=== PATIENT | female | born 1985 | race Caucasian/White ===

== ENCOUNTER 2021-11-23 17:41 | Emergency (ER) | payer BC, SELFPAY ==
--- NOTE | 2021-11-23 17:42 | ED.DENTAL ---
HPI - Dental/Oral General Chief complaint: Dental/Oral Stated complaint: tooth pain Time Seen by Provider: 11/23/21 17:43 History of Present Illness HPI Narrative: Patient is a 35-year-old female who presents the urgent care with complaints of left upper dental pain. Patient states that it started last night and she woke up this morning with some mild facial tenderness and swelling. Patient states she has taken Tylenol. Patient is 20+ weeks . Denies of any fever, nausea or vomiting. Patient states that she had been following with a dentist to complete her oral care however she was unable to afford her bill and therefore is unable to see the dentist until she pays her balance. No other acute complaints. No acute distress noted. Patient aware of the plan of care. Some parts of this dictation were generated by voice recognition software and may contain typographical and/or grammatical inaccuracies. Related Data Home Medications Medication Instructions Recorded Confirmed norethindrone 1 mg-ethinyl 1 tablet PO DAILY 11/23/21 11/23/21 estradiol 20 mcg (24)-iron 75 mg (4) tablet () Allergies Allergy/AdvReac Type Severity Reaction Status Date / Time sumatriptan AdvReac Unknown Nervousness Verified 11/23/21 17:47 SUMATRIPTAN SUCCINATE AdvReac Unknown Nervousness Uncoded 11/23/21 17:47 Review of Systems Review of Systems: CONSTITUTIONAL: Denies fever, chills, or sweats. EYES: Denies visual changes, redness, or discharge. ENT: Denies rhinorrhea, congestion, sore throat, or otalgia. Reports of left upper dental pain and facial swelling CARDIOVASCULAR: Denies chest pain, palpitations, or edema. RESPIRATORY: Denies cough or dyspnea. GASTROINTESTINAL: Denies abdominal pain, nausea, vomiting, or diarrhea. GENITOURINARY: Denies dysuria or hematuria. SKIN: Denies rash or itching. MUSCULOSKELETAL: Denies back pain, joint pain, or myalgia. NEUROLOGIC: Denies headache, numbness, or weakness. All other systems reviewed are negative, except as documented in HPI. PMFSH Comments At the time of my signature, I reviewed and agree with the nursing past medical, surgical, social, and family history. There is no relevant family history pertinent to the patient complaint. Exam Narrative: GENERAL: This is a well-nourished, well-developed patient, in no apparent distress. HEAD: normocephalic, atraumatic. EYES: PERRL. Sclera clear/white. Vision is grossly intact. EARS: External ears normal NOSE: External nose normal with no obvious nasal discharge, nares without redness, no rhinorrhea. THROAT: Mucous membranes moist, posterior pharynx clear. DENTAL: Avulsed premolar to the left upper quadrant with surrounding erythema and mild edema, carious lesions to the upper left molars. NECK: Neck supple, non-tender without lymphadenopathy CARDIOVASCULAR: Regular rate and rhythm without murmurs, gallops, or rubs. RESPIRATORY: Clear to auscultation. Breath sounds equal bilaterally. No wheezes, rales, or rhonchi. SKIN: warm, intact with no suspicious lesions or rash, good texture and turgor. NEURO: awake, alert, and oriented to person, place and time. There were no obvious focal neurologic abnormalities. EXTREMITIES: No clubbing, cyanosis, or edema. Course Course Level of Care: Express Care Visit Vital Signs Vital signs: Vital Signs Temperature 98.7 F 11/23/21 17:47 Pulse Rate 80 11/23/21 17:47 Respiratory Rate 16 11/23/21 17:47 Blood Pressure 114/68 11/23/21 17:47 Pulse Oximetry 99 11/23/21 17:47 Oxygen Delivery Room Air 11/23/21 17:47 Temperature 98.7 F 11/23/21 17:52 Pulse Rate 80 11/23/21 17:52 Respiratory Rate 16 11/23/21 17:52 Blood Pressure 114/68 11/23/21 17:52 Pulse Oximetry 99 11/23/21 17:52 Oxygen Delivery Room Air 11/23/21 17:52 Reviewed MDM - Dental/Oral MDM Narrative Medical decision making narrative: Advised the patient to obtain Prevention mouthwash over-the-
[2021-11-23 17:47] VITALS: BP 114/68; PULSE 80; RESP 16; TEMP 37.1; O2SAT 99
[2021-11-23 17:52] VITALS: BP 114/68; PULSE 80; RESP 16; TEMP 37.1; O2SAT 99
== END 2021-11-23 18:25 | disposition home or self-care (01) ==
PROVIDERS: Emergency Provider Nurse Practitioner Family; PCP Internal Medicine
DX: K04.7 Periapical abscess without sinus (principal)
CPT/HCPCS: 99203; G0463

== ENCOUNTER 2022-01-21 09:01 | Emergency (ER) | payer BC, SELFPAY ==
[2022-01-21 09:35] VITALS: BP 111/59; PULSE 111; RESP 18; TEMP 37.6; O2SAT 99
[2022-01-21 10:22] LABS: SARS-CoV-2 RNA PCR Positive
--- NOTE | 2022-01-21 10:34 | ED.FEVER ---
HPI - Fever General Chief Complaint: Fever Stated Complaint: MEYER, fever, leg, back pain Time Seen by Provider: 01/21/22 10:26 History of Present Illness HPI Narrative: Patient is a 36-year-old female who is currently about 31 weeks here for evaluation of headache, low-grade temperature, chills and feeling fatigued for the past day. States that she started to feel tired yesterday, went home from work early to rest. States that she woke up at 2 AM with chills, took her temperature and noted it was 100.1. Patient presents today as she has continued fatigue and non-productive cough. She is vaccinated against COVID. No shortness of breath. She follows with Dr. Dennis, denies any abdominal pain, vaginal bleeding, decreased movements, sudden gush of fluids. Related Data Home Medications Medication Instructions Recorded Confirmed norethindrone 1 mg-ethinyl 1 tablet PO DAILY 11/23/21 11/23/21 estradiol 20 mcg (24)-iron 75 mg (4) tablet () Allergies Allergy/AdvReac Type Severity Reaction Status Date / Time sumatriptan AdvReac Unknown Nervousness Verified 11/23/21 17:47 SUMATRIPTAN SUCCINATE AdvReac Unknown Nervousness Uncoded 11/23/21 17:47 Review of Systems Review of Systems: Gen: reports fever, chills, lightheadedness Eyes: Denies eye pain or visual change ENT: Denies congestion Respiratory: Denies shortness of breath or cough CV: Denies chest pain or palpitations GI: Denies abdominal pain nausea, emesis or diarrhea : no vaginal bleeding. denies burning, urgency, frequency or hematuria Musculoskeletal: Denies back pain or muscle pain Neuro: Denies numbness, tingling, weakness or focal weakness Skin: Denies rash Except as documented, all other systems reviewed and negative Exam Narrative: APPEARANCE: Well appearing, no pain in distress, well-nourished. Head: Normocephalic and atraumatic. EYES: PERRLA/EOMI, conjunctivae clear NOSE: No nasal drainage EARS: External ear normal in appearance THROAT: Oropharynx is clear. Mucous membranes are moist. NECK: Supple. No adenopathy, no masses. RESPIRATORY: Airway patent, respirations nonlabored. Clear to auscultation bilaterally, no rales, rhonchi, wheezing. CARDIOVASCULAR: Regular rate and rhythm without murmurs, rubs, or gallops. ABDOMINAL: heart tones detected on Doppler. gravid uterus. normoactive bowel sounds. Non-tender to palpation. No rebound tenderness or guarding. MUSCULOSKELETAL: Extremities are warm and well-perfused. Moves all extremities well. No edema. NEURO: Normal speech. No focal neurologic deficits. SKIN: Skin is warm and dry. No rashes. PSYCHIATRIC: Normal affect/mood. Course Consultations Consultation #1: Spoke with Dr. Randall, [employer] on-call for Dr. Dennis, agrees with plan for 81 mg aspirin daily Date: 01/21/22 Time: 11:38 Vital Signs Vital signs: Vital Signs Temperature 99.6 F 01/21/22 09:35 Pulse Rate 111 H 01/21/22 09:35 Respiratory Rate 18 01/21/22 09:35 Blood Pressure 111/59 L 01/21/22 09:35 Pulse Oximetry 99 01/21/22 09:35 Oxygen Delivery Room Air 01/21/22 09:35 Temperature 98.8 F 01/21/22 11:35 Pulse Rate 109 H 01/21/22 11:35 Respiratory Rate 16 01/21/22 11:35 Blood Pressure 111/57 L 01/21/22 11:35 Pulse Oximetry 97 01/21/22 11:35 Oxygen Delivery Room Air 01/21/22 09:35 MDM - Fever MDM Narrative Medical decision making narrative: 36-year-old female who is currently about 31 weeks here for evaluation of fevers, chills, generalized malaise for the past day. Here, she is here slightly tachycardic, temperature of 99.6 upon arrival which improved with Tylenol. heart tones detected at bedside, no abdominal pain, vaginal bleeding or decreased movements to suggest trouble with fetus. Here she is COVID-positive, which likely explains her symptoms. Urinalysis with 1+ leuks and red blood cells; given that she is we will treat for UTI. D
[2022-01-21] MEDS: ACETAMINOPHEN 325 MG TABLET 650 MG PO (10:38)
[2022-01-21 10:50] LABS: Appearance Urine Clear (Clear); Bilirubin Urine Negative (Negative); Blood Urine Negative (Negative); Color Urine Yellow (Yellow); Glucose Urine UA Negative (Negative); Ketones Urine Negative (Negative); Leukocyte Esterase Ur 1+ LEU/UL (Negative); Nitrate Urine Negative (Negative); Protein Urine Negative (Negative); Specific Grav Ur <= 1.005 (1.001-1.035); Urobilinogen Urine 0.2 mg/dL (<2.0)
[2022-01-21 11:00] LABS: Squamous Epithelial Cell Urine Few /hpf (Few); WBC Urine 0-3 /hpf
[2022-01-21 11:05] LABS: Add Urine Microscopic? YES
[2022-01-21 11:35] VITALS: BP 111/57; PULSE 109; RESP 16; TEMP 37.1; O2SAT 97
== END 2022-01-21 11:40 | disposition home or self-care (01) ==
PROVIDERS: Physician Assistant; Emergency Provider Emergency Medicine; PCP Internal Medicine
DX: O98.513 Other viral diseases complicating pregnancy, third trimester (principal); U07.1 COVID-19; Z3A.31 31 weeks gestation of pregnancy
CPT/HCPCS: 81001; 99283; A9270; C9803; U0003; U0005

== ENCOUNTER 2022-02-13 21:28 | Observation (INO) | payer BC, SELFPAY ==
[2022-02-13 21:40] VITALS: BP 114/70; PULSE 81; RESP 16; TEMP 36.3
[2022-02-13 21:43] VITALS: BMI 30.4
--- NOTE | 2022-02-13 21:45 | OBADM ---
This patient, Harpreet Harden, admitted to the OB room Labor/Delivery/Recovery 108 for observation. Patient/family oriented to hospital policies and general routines including ID bracelet, bed and alarms, visiting hours, pain management, procedures, bathroom and other care routines, personal items, smoking policy, room service/diet, and visiting hours. Patient/Family are encouraged to report perceived risks to care and to ask questions if they do not understand what they are told or what they should do.
[2022-02-13 22:50] LABS: Appearance Urine Cloudy (Clear); Bilirubin Urine Negative (Negative); Blood Urine Negative (Negative); Glucose Urine UA Negative (Negative); Ketones Urine Negative (Negative); Leukocyte Esterase Ur 1+ LEU/UL (Negative); Nitrate Urine Negative (Negative); Protein Urine Negative (Negative); Specific Grav Ur 1.015 (1.001-1.035); Urobilinogen Urine 0.2 mg/dL (<2.0)
[2022-02-13 23:02] LABS: Bacteria Urine Trace /hpf; Squamous Epithelial Cell Urine Many /hpf (Few)
[2022-02-13 23:03] LABS: Add Urine Microscopic? YES; Color Urine Light Yellow (Yellow)
--- NOTE | 2022-03-04 13:03 | PM.OBTRLD ---
OB - Triage/Final Diagnosis Visit Information Comments/Additional reasons for admission: I have assessed the risk for this patient, Harpreet Harden, and determined that she would benefit from observation care. Evaluation Laboratory results: Laboratory Tests 02/13/22 22:37 Urine Color Light yellow Urine Appearance Cloudy H Urine pH 7.0 Ur Specific Fletcher 1.015 Urine Protein Negative Urine Glucose (UA) Negative Urine Ketones Negative Ur Blood (Man) Negative Urine Nitrate Negative Urine Bilirubin Negative Urine Urobilinogen 0.2 Leukocyte Esterase Rfl 1+ H Urine RBC 6-10 H Urine WBC 10-15 H Ur Squamous Epith Cells Many H Urine Bacteria Trace Final Diagnosis (1) False labor: Code(s): O47.9 - False labor, unspecified Status: Acute
== END 2022-02-13 23:35 | disposition home or self-care (01) ==
PROVIDERS: Admitting Provider Obstetrics & Gynecology; PCP Internal Medicine; Visit Provider Obstetrics & Gynecology
DX: O47.03 False labor before 37 completed weeks of gestation, third trimester (principal); Z3A.34 34 weeks gestation of pregnancy
CPT/HCPCS: 81001; 87086; 87088; G0378; G0379

== ENCOUNTER 2022-02-26 12:38 | Observation (INO) | payer BC, SELFPAY ==
--- NOTE | 2022-02-26 13:55 | OBADM ---
This patient, Harpreet Harden, admitted to the OB room Labor/Delivery/Recovery 106 for observation. Patient/family oriented to hospital policies and general routines including ID bracelet, bed and alarms, visiting hours, pain management, procedures, bathroom and other care routines, personal items, smoking policy, room service/diet, and visiting hours. Patient/Family are encouraged to report perceived risks to care and to ask questions if they do not understand what they are told or what they should do.
--- NOTE | 2022-02-28 07:18 | PM.OBTRLD ---
OB - Triage/Final Diagnosis Visit Information Comments/Additional reasons for admission: I have assessed the risk for this patient, Harpreet Harden, and determined that she would benefit from observation care. Final Diagnosis (1) Vaginal discharge during : Code(s): O26.899 - Other specified related conditions, unspecified trimester; N89.8 - Other specified noninflammatory disorders of vagina Status: Acute
== END 2022-02-26 13:50 | disposition home or self-care (01) ==
PROVIDERS: Admitting Provider Obstetrics & Gynecology; PCP Internal Medicine; Visit Provider Obstetrics & Gynecology
DX: O26.893 Other specified pregnancy related conditions, third trimester (principal); N89.8 Other specified noninflammatory disorders of vagina; Z3A.36 36 weeks gestation of pregnancy
CPT/HCPCS: G0378; G0379

== ENCOUNTER 2022-02-27 10:04 | Emergency (ER) | payer BC, SELFPAY ==
[2022-02-27 10:14] VITALS: BP 121/80; PULSE 84; RESP 16; TEMP 36.2; O2SAT 98
--- NOTE | 2022-02-27 10:34 | ED.DENTAL ---
HPI - Dental/Oral General Chief complaint: Dental/Oral Stated complaint: top left tooth pain Time Seen by Provider: 02/27/22 10:34 Source: patient Mode of arrival: ambulatory History of Present Illness HPI Narrative: 36 y/o female presented for c/o left upper dental pain and facial swelling for about 3 days. History of broken tooth to the site. Does not follow with dentist. She is taking Tylenol and doing warm salt water rinses. Denies lip, tongue, or throat swelling, wheezing, n/v/d/f/c. Patient is , due in 25 days; reports frequent movement and no concerns. MD Complaint: tooth pain Related Data Home Medications Medication Instructions Recorded Confirmed prenat.vits,sheng,hqn-dcby-[id number] 1 tablet PO DAILY 02/23/22 02/23/22 Allergies Allergy/AdvReac Type Severity Reaction Status Date / Time sumatriptan AdvReac Unknown Nervousness Verified 02/27/22 10:17 SUMATRIPTAN SUCCINATE AdvReac Unknown Nervousness Uncoded 11/23/21 17:47 Review of Systems Review of Systems: CONSTITUTIONAL: Denies body aches, fever, chills ENT: Denies rhinorrhea, congestion, sore throat, or otalgia. Reports dental pain CARDIOVASCULAR: Denies chest pain, palpitations RESPIRATORY: Denies cough or dyspnea. SKIN: Denies rash, itching, or wounds. MUSCULOSKELETAL: Denies myalgia. NEUROLOGIC: Denies headache, numbness, tingling, or weakness. [facility] Family History Family History Mother Irritable bowel disease Grandparent Lung cancer Grandparent Lung cancer Social History Social History Substance use: never Spiritual care concerns: No Comments At time of signature, I have reviewed and agree with nursing past medical, surgical, social and family history unless otherwise noted. Please see nursing chart for further information. There is no relevant family history pertinent to the presenting complaint Exam Narrative: GENERAL: Appears in pain; no acute distress. HEAD: Normocephalic, atraumatic. EYES: EOMI. No redness or drainage. Conjunctivae normal. ENT: Dental pain location of #12, mild gum swelling, tender to palpation, no active drainage, mild left facial swelling over the site; Mucous membranes pink and moist. TMs normal bilaterally. Throat normal. Uvula midline. NECK: Normal AROM. No lymphadenopathy. CHEST: No respiratory distress. Clear to auscultation. HEART: Regular rate and rhythm. No murmur appreciated. SKIN: Warm, dry, no rash. Normal skin turgor. NEURO: No focal deficits. Alert and oriented x3. Gait steady. Course Course Emergency Course: Patient is aware of diagnosis, understands and agrees to treatment plan. Anticipatory guidance given. Patient agrees to follow-up as directed and is aware of reasons to seek care at the emergency department. Portions of this record may have been created with voice recognition software Level of Care: Express Care Visit Vital Signs Vital signs: Vital Signs Temperature 97.1 F L 02/27/22 10:14 Pulse Rate 84 02/27/22 10:14 Respiratory Rate 16 02/27/22 10:14 Blood Pressure 121/80 02/27/22 10:14 Pulse Oximetry 98 02/27/22 10:14 Oxygen Delivery Room Air 02/27/22 10:14 Temperature 97.1 F L 02/27/22 10:14 Pulse Rate 84 02/27/22 10:14 Respiratory Rate 16 02/27/22 10:14 Blood Pressure 121/80 02/27/22 10:14 Pulse Oximetry 98 02/27/22 10:14 Oxygen Delivery Room Air 02/27/22 10:14 MDM - Dental/Oral MDM Narrative Medical decision making narrative: Patients pain and PE c/w dental abscess. There are no focal signs of space occupying lesions that are compromising to the airway; No uvular deviation or soft palate edema. Patient is non-toxic appearing. Patient is without trismus or drooling and able to swallow secretions. Advised supportive measures and signs/symptoms to go to the ER. Pt is appropriate for outpt treatment and
== END 2022-02-27 10:49 | disposition home or self-care (01) ==
PROVIDERS: Emergency Provider Nurse Practitioner Family; PCP Internal Medicine
DX: K08.89 Other specified disorders of teeth and supporting structures (principal); Z86.16 Personal history of COVID-19
CPT/HCPCS: 99213; G0463

== ENCOUNTER 2022-03-10 18:58 | Observation (INO) | payer BC, SELFPAY ==
[2022-03-10 21:00] VITALS: BMI 29.7
--- NOTE | 2022-03-10 22:48 | OBADM ---
This patient, Harpreet Harden, admitted to the OB room Labor/Delivery/Recovery 107 for observation. Patient/family oriented to hospital policies and general routines including ID bracelet, bed and alarms, visiting hours, pain management, procedures, bathroom and other care routines, personal items, smoking policy, room service/diet, and visiting hours. Patient/Family are encouraged to report perceived risks to care and to ask questions if they do not understand what they are told or what they should do.
--- NOTE | 2022-04-04 22:49 | PM.OBTRLD ---
OB - Triage/Final Diagnosis Visit Information Comments/Additional reasons for admission: I have assessed the risk for this patient, Harpreet Harden, and determined that she would benefit from observation care. Final Diagnosis (1) False labor: Code(s): O47.9 - False labor, unspecified Status: Acute
== END 2022-03-10 22:48 | disposition home or self-care (01) ==
PROVIDERS: Admitting Provider Obstetrics & Gynecology; PCP Internal Medicine; Visit Provider Obstetrics & Gynecology
DX: O47.1 False labor at or after 37 completed weeks of gestation (principal); Z3A.38 38 weeks gestation of pregnancy
CPT/HCPCS: G0378; G0379

== ENCOUNTER 2022-03-16 14:16 | Outpatient (CLI) | payer BC, SELFPAY ==
[2022-03-16 15:15] VITALS: BP 120/71; PULSE 92
== END 2022-03-16 15:27 | disposition home or self-care (01) ==
LOC: ANHOBOP 15:26
PROVIDERS: PCP Internal Medicine; Visit Provider Obstetrics & Gynecology
DX: O42.90 Premature rupture of membranes, unspecified as to length of time between rupture and onset of labor, unspecified weeks of gestation (principal); Z3A.00 Weeks of gestation of pregnancy not specified
CPT/HCPCS: 59025; 84112

== ENCOUNTER 2022-03-17 04:55 | Inpatient (IN) | payer BC, SELFPAY ==
[2022-03-17] VITALS (66 sets, daily range): BP systolic 93–137; BP diastolic 54–92; PULSE 60–107; RESP 18; TEMP 36.5–37.1; O2SAT 95–100; BMI 31.6
--- OUTSIDE RECORDS SUMMARY | 2022-03-17 05:01 | XMS_ITS ---
:1985 Author Care Team Providers Name Role Phone Altagracia Brice V Primary Care Provider Unavailable Allergies Code Code System Name Reaction Severity Status Onset [id number] RxNorm Latex Itching ? Active ? Lo Loestrin Fe Rash ? Active ? Notes: rash,swelling Medications Name Status Start Date Stop Date ? ? amoxicillin 500 mg capsule Active ? Not a vailable clobetasol 0.05 % topical cream Completed ? 06/07/2016 Flagyl 500 mg tablet Completed ? 06/07/2016 Take 1 tablet twice a day by oral route as directed for 7 days. Junel Fe 24 1 mg-20 mcg (24)/75 mg (4) tablet Active ? Not available Take 1 tablet by mouth once daily Lo Loestrin Fe 1 mg-10 mcg (24)/10 mcg (2) tablet Completed ? 02/01/2015 Loestrin 1/20 (21) 1 mg-20 mcg tablet Active ? Not available Take 1 tablet every day by oral route. Loestrin Fe 1/20 (28-Day) 1 mg-20 mcg (21)/75 mg (7) tablet Comp leted ? 10/07/2018 Take 1 tablet every day by oral route. methylprednisolone 4 mg tablets in a dose pack Completed ? 02/01/2015 Orsythia 0.1 mg-20 mcg tablet Completed ? Ortho Tri-Cyclen LO (28) 0.18 mg/0.215 mg/0.25 mg-25 mcg tablet Completed ? 10/07/2018 Take 1 tablet every day by oral route for 28 days. tramadol 50 mg tablet Active ? Not availa ble Problems Name Status Onset Date Source ? Bacterial Vaginosis Active ? Encounter Smoker Active ? Encounter Vaginal Discharge Active ? Encounter Irregular Periods Active ? Encounter Skin Lesion Active ? Encounter Procedures Date Name Performed by ?
[2022-03-17 05:59] LABS: Basophils Absolute Auto 0.1 K/mm3 (0.0-0.1); Basophils Percent Auto 0.5 % (0.2-1.2); Eosinophils Absolute Auto 0.2 K/mm3 (0-0.3); Eosinophils Percent Auto 2.1 % (0-4.4); Hemoglobin 12.1 g/dL (12.0-15.0); Immature Granulocyte Absolute 0.05 K/mm3 (0.00-0.031); Immature Granulocyte Percent A 0.4 % (0-0.5); Lymphocytes Absolute Auto 2.14 K/mm3 (0.9-3.2); Lymphocytes Percent Auto 19.1 % (18.3-44.2); Mean Corpuscular HGB Conc 34.6 g/dl (32-36); Mean Corpuscular Hemoglobin 30.9 pg (26-34); Mean Corpuscular Volume 89.5 fl (80-100); Mean Platelet Volume 10.5 fl (7.4-10.4); Monocytes Absolute Auto 0.9 K/mm3 (0.1-0.6); Neutrophils Absolute Auto 7.8 K/mm3 (1.3-6.7); Neutrophils Percent Auto 69.9 % (45.5-73.1); Platelet Count Result 187 k/mm3 (150-375); Red Blood Count 3.91 M/mm3 (4.2-5.4); Red Cell Distribution Width 12.4 % (11.5-14.5); White Blood Count 11.2 K/mm3 (4.5-10.0)
[2022-03-17] MEDS: OXYTOCIN 30 UNITS/NS 500 ML 30 UNITS/500 ML BAG IV CONT (06:08)
[2022-03-17] MEDS: LACTATED RINGERS 1,000 ML 125 ML IV CONT ×2 (06:08→11:55)
--- NOTE | 2022-03-17 09:16 | PM.IMHP ---
H&P: HPI History of Present Illness Date/Time: 03/17/22 09:16 Chief Complaint: induction of labor Narrative: Harpreet is a 36yo at 39.0 for elective IOL. is complicated by AMA, late care, and EtOH use until 19w when she first found out she was . She also had COVID this . Review of Systems Review of Systems: All systems reviewed & are unremarkable except as noted in HPI and below PMFSH Family History Family History Mother Irritable bowel disease Grandparent Lung cancer Grandparent Lung cancer Social History Social History Smoking status: Current every day smoker Tobacco type: e-cigarettes/vaping Substance use: never Spiritual care concerns: No Meds Home Medications and Allergies Home Medications Medication Instructions Recorded Confirmed Type aspirin 81 mg capsule 81 mg PO DAILY #10 caps 01/21/22 03/17/22 Rx prenat.vits,sheng,cdw-ghcd-mrkxg 1 tablet PO DAILY 02/23/22 02/23/22 History Allergies Allergy/AdvReac Type Severity Reaction Status Date / Time sumatriptan AdvReac Unknown Nervousness Verified 02/27/22 10:17 SUMATRIPTAN SUCCINATE AdvReac Unknown Nervousness Uncoded 11/23/21 17:47 Vital Signs Vital Signs - 24 hr 03/17/22 05:14 03/17/22 05:16 03/17/22 05:31 Temperature 98.7 F Pulse Rate 84 87 79 Blood Pressure 122/84 123/77 117/76 Oxygen Delivery 03/17/22 05:46 03/17/22 06:01 03/17/22 06:31 Temperature Pulse Rate 77 80 76 Blood Pressure 126/74 123/76 117/78 Oxygen Delivery 03/17/22 07:01 03/17/22 07:31 03/17/22 08:01 Temperature Pulse Rate 67 71 84 Blood Pressure 123/70 110/77 126/85 Oxygen Delivery 03/17/22 08:31 03/17/22 08:00 03/17/22 09:01 Temperature 98.1 F Pulse Rate 80 74 Blood Pressure 118/71 122/74 Oxygen Delivery 03/17/22 05:17 03/17/22 05:32 Temperature Pulse Rate 79 Blood Pressure 117/76 Oxygen Delivery Room Air Exam Const: General: no acute distress Resp: Effort & Inspection: normal respiratory effort Auscultation: clear to auscultation bilaterally Cardio: Rate: regular rate Rhythm: regular rhythm GI: GI Palp: Yes Soft to palpation Extrem: General: normal to inspection H&P: Results Labs Labs: Short CBC 03/17/22 Range/Units 05:34 WBC 11.2 H (4.5-10.0) K/mm3 Hgb 12.1 (12.0-15.0) g/dL Hct 35.0 L (37.0-47.0) % Plt Count 187 (150-375) k/mm3 Assessment and Plan Assessment and plan (1) AMA (advanced maternal age) multigravida 35+: Code(s): O09.529 - Supervision of elderly multigravida, unspecified trimester Status: Acute (2) Late care affecting : Code(s): O09.30 - Supervision of with insufficient care, unspecified trimester Status: Acute (3) Elective induction of labor planned: Status: Acute Plan GBS neg pitocin per protocol SVE 560/-3 AROM clear FHT category 1 anticipate
[2022-03-17] MEDS: fentaNYL CITRATE INJ (*CRX) 100 MCG/2 ML VIAL 50 MCG IV PUSH (11:53)
--- NOTE | 2022-03-17 12:16 | WPDANESEPPF ---
Anes - Initial Pre Proc Eval Procedure: labor epidural Date/Time: 03/17/22 12:16 Surgeon: Ana Dennis MD Pre Op Diagnosis: labor pain Pre Op Diagnosis: IOL Patient Data Age: 36 Gender: F Height: 1.6 m Weight: 81 kg Last Vital Signs Temp 36.8 C 03/17/22 10:00 Pulse 64 03/17/22 12:15 BP 120/75 03/17/22 12:15 Pulse Ox 98 03/17/22 12:16 O2 Del Method Room Air 03/17/22 05:17 Allergies Allergy/AdvReac Type Severity Reaction Status Date / Time sumatriptan AdvReac Unknown Nervousness Verified 02/27/22 10:17 SUMATRIPTAN SUCCINATE AdvReac Unknown Nervousness Uncoded 11/23/21 17:47 Home Medications Medication Instructions Recorded Confirmed Type aspirin 81 mg capsule 81 mg PO DAILY #10 caps 01/21/22 03/17/22 Rx prenat.vits,sheng,erv-wovm-dxnza 1 tablet PO DAILY 02/23/22 02/23/22 History Laboratory Tests 03/17/22 03/17/22 03/17/22 05:34 05:34 05:34 WBC 11.2 K/mm3 H K/mm3 (4.5-10.0) RBC 3.91 M/mm3 L M/mm3 (4.2-5.4) Hgb 12.1 g/dL g/dL (12.0-15.0) Hct 35.0 % L % (37.0-47.0) MCV 89.5 fl fl (80-100) MCH 30.9 pg pg (26-34) MCHC 34.6 g/dl g/dl (32-36) RDW 12.4 % % (11.5-14.5) Plt Count 187 k/mm3 k/mm3 (150-375) MPV 10.5 fl H fl (7.4-10.4) Immature Gran % (Auto) 0.4 % % (0-0.5) Neut % (Auto) 69.9 % % (45.5-73.1) Lymph % (Auto) 19.1 % % (18.3-44.2) [place] % (Auto) 8.0 % % (2.6-8.5) Eos % (Auto) 2.1 % % (0-4.4) Baso % (Auto) 0.5 % % (0.2-1.2) Lymph # (Auto) 2.14 K/mm3 K/mm3 (0.9-3.2) [place] # (Auto) 0.9 K/mm3 H K/mm3 (0.1-0.6) Eos # (Auto) 0.2 K/mm3 K/mm3 (0-0.3) Baso # (Auto) 0.1 K/mm3 K/mm3 (0.0-0.1) Abs Immat Gran (auto) 0.05 K/mm3 H K/mm3 (0.00-0.031) Absolute Neuts (auto) 7.8 K/mm3 H K/mm3 (1.3-6.7) Absolute Nucleated RBC 0.0 K/mm3 K/mm3 (0.0-0.012) Nucleated RBC % 0.0 % % (0.0-0.2) RPR Pending Blood Type B Positive Antibody Screen Negative Patient hx anesthesia problems: none Family hx anesthesia problems: none Results Review: All pre-operative results and documents have been reviewed as part of the pre-operative evaluation. [facility] Family History Family History Mother Irritable bowel disease Grandparent Lung cancer Grandparent Lung cancer Social History Social History Smoking status: Current every day smoker Tobacco type: e-cigarettes/vaping Substance use: never Spiritual care concerns: No Anes - Eval Final PreProcedure Day of Procedure 03/17/22 12:16 Patient weight: obese ASA classification: II Anesthetic plan: proceed Anesthesia type and monitoring: regional epidural and standard monitoring Results Review: All pre-operative results and documents have been reviewed as part of the pre-operative evaluation. Informed Consent: The patient's anesthetic plan and its attendant risks and benefits were discussed with the patient/family/POA. Questions were solicited and answers provided to the satisfaction of the patient/family/POA.
--- NOTE | 2022-03-17 16:06 | P.PCNOB_ITS ---
OB - Delivery Note Procedure Delivery date: 03/17/22 Procedure: Events: Elective Induction of Labor Induction method: AROM and Per Pitocin Protocol Delivery monitor: External FHT and External Uterine Route of delivery: Laceration Description: Periurethral (right) Specimen: No Quantitative Blood Loss (ml): 245 Anesthesia type: Epidural Disposition: Floor Narrative: With adequate expulsive efforts by the mother, the baby's head was delivered OA. The baby's anterior shoulder was delivered under the pubic symphysis without difficulty. The posterior shoulder and the rest of the baby delivered without d ifficulty. The was placed on the mothers chest and suctioned and stimulated. The cord was clamped and cut after 30 seconds. Mother and baby both stable. [place] Baby Date of : 03/17/22 Time of : 15:49 Weeks of gestation at delivery: 39 Weight (pounds): 7 Weight (ounces): 5 presentation: vertex Placenta delivery description: Spontaneous Cord Vessel Description: 3 Vessels, Nuchal Cord (x2) and Delayed Cord Clamping score one minute: 8 score five minutes: 9
[2022-03-17] MEDS: WITCH HAZEL 40 PADS 1 PAD TOPICAL (17:27)
[2022-03-17] MEDS: BENZOCAINE 20% AER SPR (*SP) 56 GM CAN 1 SPRAY TOPICAL (17:27)
--- NOTE | 2022-03-17 18:50 | PC.NURSE ---
Patient transferred to post room # 291 via ( W/C ). Support person Abbie present. Oriented to unit, room, information board, rooming in, admission packet and security measures. Patient verbalizes understanding.
[2022-03-18 00:40] VITALS: BP 126/88; PULSE 97; RESP 16; TEMP 36.4; O2SAT 97
[2022-03-18 04:23] VITALS: BP 120/75; PULSE 82; RESP 16; TEMP 36.8; O2SAT 96
[2022-03-18 06:04] LABS: Hematocrit 34.8 % (37.0-47.0); Hemoglobin 11.7 g/dL (12.0-15.0)
[2022-03-18] MEDS: IBUPROFEN 600 MG TABLET PO (07:53)
[2022-03-18 08:00] VITALS: BP 109/79; PULSE 91; RESP 16; TEMP 36.7; O2SAT 100
--- NOTE | 2022-03-18 09:59 | PM.OBPNVD ---
OB - PN: Subj Subjective Date/time seen: 03/18/22 09:59 Patient comments: no complaints and pain well controlled baby status: doing well and nursing well [place] feeding status: exclusively breast feeding Narrative: Would like DC home today. OB - PN: Obj Data Labs CBC & Chem 7: 03/18/22 05:56 Labs: Laboratory Results - last 24 hr 03/18/22 05:56 Hgb 11.7 L Hct 34.8 L OB - PN A/P Plan day: 1 Plan: routine care and discharge home Time Spent With Patient Time: Total time spent is greater than 50% in coordination of care (as documented) at patient's floor/unit and/or counseling patient: Time with patient: less than 15 minutes Exam Narrative: NAD abdomen soft, nontender, fundus firm below the umbilicus Extremities nontender, 1+ edema
--- NOTE | 2022-03-18 10:01 | PM.DS ---
DS: Admitting Diagnosis Discharge Date 03/18/22 Admitting Diagnosis term IUP DS: Discharge Diagnosis Discharge Diagnosis (1) , delivered: Code(s): O80 - Encounter for full-term uncomplicated delivery Status: Acute DS: Summary Hospital Course Hospital Course: Pt was admitted for elective IOL and proceeded to have an uncomplicated vaginal delivery and course. She was discharged home on PPD 1. Status at Discharge Functional status at discharge: independent ambulation Time Spent with Patient Time attestation: Total time spent providing and/or coordinating discharge services: Exam Narrative: NAD abdomen soft, appropriately tender Ext non tender, 1+ edema DS: Data Data Completed and Pending Labs on day of discharge: Labs from last 24 hours 03/18/22 05:56 Hgb 11.7 L Hct 34.8 L Discharge Plan Discharge Attending physician on discharge: Ana Dennis Discharging Clinician: Ana Dennis Anticipated Discharge Date/Time: 03/18/22 19:00 Patient Disposition: Home, Self-Care Activity: pelvic rest Diet: regular Patient Instructions: Antibiotic Form, How to Stop Smoking (DC) Stand Alone Forms: General Discharge Information Follow-up/Referrals: Ana Dennis MD [Physician] - 4 Weeks Discharge Medications: Continued prenat.vits,sheng,[id number] Tablet 1 tablet PO DAILY Discontinued aspirin 81 mg capsule 81 mg PO DAILY Qty: 10 0RF Date of admission: 03/17/22 04:55 Primary Care Provider: Willie,Stewart Steiner Admitting Provider: Ana Dennis Attending physician on admission: Ana Dennis Condition: Stable
[2022-03-18 12:00] VITALS: BP 125/90; PULSE 86; RESP 18; TEMP 37.1; O2SAT 100
--- NOTE | 2022-03-18 15:06 | PC.NURSE ---
Patient instructed on viewing the discharge video Mother & Baby Care, The First Two Weeks . Patient was given the opportunity and encouraged to ask questions. Patient verbalized understanding of information shared and has been given the mother/baby guide for home reference.
[2022-03-19 07:28] LABS: Rapid Plasma Reagin Non-Reactive (NonReactive)
== END 2022-03-18 17:30 | disposition home or self-care (01) | DRG 807 ==
LOC: ANHLDR 05:46 → ANHOB2 20:09
PROVIDERS: Admitting Provider Obstetrics & Gynecology; PCP Internal Medicine; Visit Provider Obstetrics & Gynecology
DX: O69.81X0 Labor and delivery complicated by cord around neck, without compression, not applicable or unspecified (principal); Z37.0 Single live birth; Z3A.39 39 weeks gestation of pregnancy; O71.82 Other specified trauma to perineum and vulva
CPT/HCPCS: 36415; 85014; 85018; 85025; 86592; 86850; 86900; 86901; A9270; J2590; J2795; J3010; J7120

== ENCOUNTER 2022-10-10 08:15 | Emergency (ER) | payer SELFPAY ==
--- NOTE | 2022-10-10 08:29 | ED.URI ---
HPI - URI/Sore Throat General Chief Complaint: Upper Respiratory Infection Stated Complaint: Headache/Sore Throat Time Seen by Provider: 10/10/22 08:29 Source: patient Mode of arrival: ambulatory Limitations: no limitations History of Present Illness HPI Narrative: 36-year-old female presents with complaint sore throat, left ear pain, fatigue for the past 3 days. Afebrile. Reports recent exposure to strep throat from her son. Denies nausea vomiting diarrhea. No cough, chest pain or shortness of breath. All systems reviewed and negative except as noted above. Related Data Home Medications Medication Instructions Recorded Confirmed norethindrone (contraceptive) 0.35 0.35 mg PO DAILY 10/10/22 10/10/22 mg tablet Allergies Allergy/AdvReac Type Severity Reaction Status Date / Time sumatriptan AdvReac Unknown Nervousness Verified 10/10/22 08:49 Review of Systems Review of Systems: CONSTITUTIONAL: Denies fever, chills, or sweats. EYES: Denies visual changes, redness, or discharge. ENT: Denies rhinorrhea, congestion. Reports sore throat, left ear pain. CARDIOVASCULAR: Denies chest pain, palpitations, or edema. RESPIRATORY: Denies cough or dyspnea. GASTROINTESTINAL: Denies abdominal pain, nausea, vomiting, or diarrhea. GENITOURINARY: Denies dysuria or hematuria. SKIN: Denies rash or itching. MUSCULOSKELETAL: Denies back pain, joint pain, or myalgia. NEUROLOGIC: Denies headache, numbness, or weakness. PSYCHIATRIC: Denies anxiety or depression. All other systems reviewed are negative, except as documented in HPI. [facility] Family History Family History Mother Irritable bowel disease Grandparent Lung cancer Grandparent Lung cancer Social History Social History Smoking status: Current every day smoker Tobacco type: e-cigarettes/vaping Substance use: never Spiritual care concerns: No Comments At time of signature, agree with nursing past medical, surgical, social and family history. There is no relevant family history pertinent to the presenting complaint. Exam Narrative: GENERAL: This is a well-nourished, well-developed patient, in no apparent distress. HEAD: normocephalic, atraumatic. EYES: PERRL. Sclera clear/white. Vision is grossly intact. EARS: External ears normal, auditory canals clear and without drainage, left TM erythematous and bulging, right TM normal, no perforation bilateral. NOSE: External nose normal with no obvious nasal discharge, nares without redness, no rhinorrhea. THROAT: Mucous membranes moist, posterior pharynx clear. NECK: Neck supple, non-tender without lymphadenopathy, masses or thyromegaly. CARDIOVASCULAR: Regular rate and rhythm without murmurs, gallops, or rubs. RESPIRATORY: Clear to auscultation. Breath sounds equal bilaterally. No wheezes, rales, or rhonchi. SKIN: warm, Dry, intact with no suspicious lesions or rash, good texture and turgor. NEURO: awake, alert, and oriented to person, place and time. There were no obvious focal neurologic abnormalities. EXTREMITIES: No joint tenderness, effusion, or edema noted. Course Course Level of Care: Express Care Visit Vital Signs Vital signs: Vital Signs Temperature 36.4 C L 10/10/22 08:35 Pulse Rate 80 10/10/22 08:35 Respiratory Rate 16 10/10/22 08:35 Blood Pressure 112/71 10/10/22 08:35 Pulse Oximetry 98 10/10/22 08:35 Oxygen Delivery Room Air 10/10/22 08:35 Temperature 36.4 C L 10/10/22 08:35 Pulse Rate 80 10/10/22 08:35 Respiratory Rate 16 10/10/22 08:35 Blood Pressure 112/71 10/10/22 08:35 Pulse Oximetry 98 10/10/22 08:35 Oxygen Delivery Room Air 10/10/22 08:35 Reviewed MDM - URI/Sore Throat MDM Narrative Medical decision making narrative: Patient is aware of diagnosis, understands and agrees to treatment plan. Anticipatory guidance given. Pat
[2022-10-10 08:35] VITALS: BP 112/71; PULSE 80; RESP 16; TEMP 36.4; O2SAT 98
== END 2022-10-10 09:10 | disposition home or self-care (01) ==
PROVIDERS: Emergency Provider Nurse Practitioner Family
DX: H66.92 Otitis media, unspecified, left ear (principal); J02.9 Acute pharyngitis, unspecified; F17.290 Nicotine dependence, other tobacco product, uncomplicated; Z86.16 Personal history of COVID-19
CPT/HCPCS: 87081; 87880; 99213; G0463

== ENCOUNTER 2023-05-13 08:02 | Emergency (ER) | payer MEDICAID, SELFPAY ==
--- NOTE | ~2023-05-13 | XR_ITS ---
EXAMINATION: XR chest 2V DATE: 05/13/2023 09:00 INDICATION: Cough and wheezing TECHNIQUE: PA and lateral views of the chest are obtained. COMPARISON: 07/25/2011 FINDINGS: The lungs are free of acute opacities. No pleural effusion or pneumothorax. The cardiomedia stinal silhouette is normal. The visualized bones and soft tissues are unremarkable. IMPRESSION: 1. No acute cardiopulmonary abnormality. Reviewed, dictated and finalized at location B. 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
[2023-05-13 08:10] VITALS: BP 112/77; PULSE 87; RESP 20; TEMP 36.9; O2SAT 95
--- NOTE | 2023-05-13 08:15 | ED.URI ---
HPI - URI/Sore Throat General Chief Complaint: Upper Respiratory Infection Stated Complaint: Shortness of Breath, Cough, Wheezing Source: patient, RN notes reviewed and old records reviewed Mode of arrival: ambulatory Limitations: no limitations History of Present Illness HPI Narrative: 37-year-old female presents to [facility] with complaints of cough, wheezing, shortness of breath this started approximately 2 weeks ago. Patient states has been having respiratory issues since having COVID 1.5 months ago. Patient taking [id number] medications with no relief MD elicited complaint: cough Onset (ago): week(s) (1.5) Related Data Home Medications Medication Instructions Recorded Confirmed norethindrone (contraceptive) 0.35 0.35 mg PO DAILY 10/10/22 10/10/22 mg tablet Allergies Allergy/AdvReac Type Severity Reaction Status Date / Time sumatriptan AdvReac Unknown Nervousness Verified 05/13/23 08:04 Review of Systems Constitutional: Constitutional: Reports no additional constitutional complaints, Denies body ache(s), Denies chills, Denies fatigue, Denies fever(s) and Denies headache(s) Eyes: Eyes: Reports no additional eye complaints and Denies blurry vision ENT: Reports system reviewed and no additional complaints, except as documented, Denies vertigo, Denies dizziness, Denies ear discharge, Denies otalgia, Denies facial pain, Denies headache(s), Denies nasal congestion, Denies nasal discharge, Denies sinus pain, Denies sinus pressure and Denies sore throat Cardiovascular: Cardiovascular: Reports no additional cardiovascular complaints, Denies chest pain, Denies chest pain at rest, Denies rapid heart rate and Denies dyspnea Respiratory: Respiratory: Reports as per HPI, Reports chest congestion, Reports cough, Denies pain on inspiration, Denies pain with cough, Reports dyspnea and Reports wheezing Gastrointestinal: Gastrointestinal: Denies abdominal pain, Denies diarrhea, Denies nausea and Denies vomiting Integumentary/Breasts: Skin/Breast: Denies rash Neurologic: Reports system reviewed and no additional complaints, except as documented, Denies vertigo, Denies dizziness and Denies headache(s) Endocrine: Endocrine: Denies fatigue [facility] Family History Family History Mother Irritable bowel disease Grandparent Lung cancer Grandparent Lung cancer Social History Social History Smoking status: Current every day smoker Tobacco type: e-cigarettes/vaping Substance use: never Spiritual care concerns: No Comments At the time of my signature, I reviewed and agree with the nursing past medical, surgical, social, and family history. There is no relevant family history pertinent to the patient complaint. Exam Const: General: cooperative, no acute distress, ill appearing acutely and well nourished Nutritional Appearance: well nourished Orientation/consciousness: patient oriented x3 Limitations: no limitations HENMT: Head: normal to inspection and normocephalic Ears: external ears normal, TM's normal bilaterally, mastoids normal and Abnormal EAC present Face/Nose/Sinus: normal facial exam Face and sinus: normal facial exam Mouth: Yes Normal oral and palatal mucosa present, Yes oropharynx normal and Yes moist mucous membranes Throat: tonsils normal, uvula midline and no uvular edema Eyes: General: appearance normal, both eyes and all related structures Sclera: sclerae normal Pupils: Equal, round and reactive pupils present Resp: Effort & Inspection: able to speak in complete sentences, audible wheezes, Actively coughing, no respiratory distress and no retractions Auscultation: no crackles, no rales, rhonchi left upper and right upper, wheezes throughout and diminished lung sounds diffuse Cardio: Rate: regular rate Rhythm: regular rhythm Skin: General skin exam: normal color and no rashes or
[2023-05-13] MEDS: ALBUTEROL SULFATE NEB 2.5 MG/3 ML INH INHALATION (08:23)
[2023-05-13] MEDS: IPRATROPIUM BR 0.02% INH SOLN 0.5 MG/2.5 ML VIAL INHALATION (08:23)
[2023-05-13 09:17] VITALS: PULSE 89; RESP 18; O2SAT 96
== END 2023-05-13 09:17 | disposition home or self-care (01) ==
PROVIDERS: Emergency Provider Registered Nurse
DX: J20.9 Acute bronchitis, unspecified (principal); J45.40 Moderate persistent asthma, uncomplicated; F17.290 Nicotine dependence, other tobacco product, uncomplicated; Z86.16 Personal history of COVID-19
CPT/HCPCS: 71046; 94640; 99213; G0463

== ENCOUNTER 2023-07-24 17:02 | Emergency (ER) | payer BC, MEDICAID, SELFPAY ==
[2023-07-24] VITALS (10 sets, daily range): BP systolic 112–125; BP diastolic 70–84; PULSE 79–106; RESP 18–26; TEMP 37.2; O2SAT 95–100
--- NOTE | ~2023-07-24 | XR_ITS ---
EXAMINATION: XR chest 2V DATE: 07/24/2023 18:52 INDICATION: Cough and shortness of breath TECHNIQUE: PA and lateral views of the chest are obtained. COMPARISON: 05/13/2023 FINDINGS: The lungs are free of acute opacities. No pleural effusion or pneumothorax. The cardiomedia stinal silhouette is normal. The visualized bones and soft tissues are unremarkable. IMPRESSION: 1. No acute cardiopulmonary abnormality. Reviewed, dictated and finalized at location F. 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
--- NOTE | 2023-07-24 17:15 | ECG_ITS ---
Measurements Intervals [place] Rate: 78 P: 69 CT: 132 QRS: 48 QRSD: 86 T: 43 QT: 341 QTc: 389 Interpretive Statements SINUS RHYTHM WITH SINUS ARRHYTHMIA NO PREVIOUS ECG AVAILABLE FOR COMPARISON Electronically Signed On 07-24-2023 19:19:43 TRACK WELDER by Socorro Hsu M.D.
[2023-07-24 17:35] LABS: Basophils Absolute Auto 0.2 K/mm3 (0.0-0.1); Basophils Percent Auto 1.3 % (0.2-1.2); Eosinophils Absolute Auto 1.1 K/mm3 (0-0.3); Eosinophils Percent Auto 9.4 % (0-4.4); Hematocrit 42.6 % (37.0-47.0); Hemoglobin 13.9 g/dL (12.0-15.0); Immature Granulocyte Absolute 0.03 K/mm3 (0.00-0.031); Immature Granulocyte Percent A 0.3 % (0-0.5); Lymphocytes Absolute Auto 3.12 K/mm3 (0.9-3.2); Lymphocytes Percent Auto 27.8 % (18.3-44.2); Mean Corpuscular HGB Conc 32.6 g/dl (32-36); Mean Corpuscular Volume 94.9 fl (80-100); Mean Platelet Volume 9.4 fl (7.4-10.4); Monocytes Absolute Auto 0.8 K/mm3 (0.1-0.6); Monocytes Percent Auto 6.7 % (2.6-8.5); Neutrophils Absolute Auto 6.1 K/mm3 (1.3-6.7); Neutrophils Percent Auto 54.5 % (45.5-73.1); Platelet Count Result 341 k/mm3 (150-375); Red Blood Count 4.49 M/mm3 (4.2-5.4); Red Cell Distribution Width 12.6 % (11.5-14.5); White Blood Count 11.2 K/mm3 (4.5-10.0)
--- NOTE | 2023-07-24 17:41 | ED.SOB ---
HPI - SOB/Dyspnea General Chief Complaint: Shortness of Breath/Dyspnea Stated Complaint: SOB Time Seen by Provider: 07/24/23 17:14 Source: patient Mode of arrival: ambulatory Limitations: no limitations History of Present Illness HPI Narrative: This is a 37-year-old female that presents to the emergency department for shortness of breath. Ongoing over the last several months. Associated with cough, congestion, wheezing. Reports she has had trouble with the since having COVID at the end of last year. No history of asthma or COPD. She is not a smoker. Reports she has had substernal chest discomfort which is worse with coughing. Also reports nausea and vomiting that started this morning. Denies fevers or lower extremity edema. Related Data Home Medications Medication Instructions Recorded Confirmed norethindrone (contraceptive) 0.35 0.35 mg PO DAILY 10/10/22 10/10/22 mg tablet Allergies Allergy/AdvReac Type Severity Reaction Status Date / Time sumatriptan AdvReac Unknown Nervousness Verified 07/24/23 17:18 Review of Systems Review of Systems: CONSTITUTIONAL: Denies fever ENT: Reports congestion CARDIOVASCULAR: Reports chest pain. Denies edema. RESPIRATORY: Reports cough and dyspnea. GASTROINTESTINAL: Reports nausea and vomiting. Denies abdominal pain All systems reviewed & are unremarkable except as noted in HPI and below PMFSH Past Medical History Medical History (Updated 07/24/23 @ 20:09 by Kinjal Lowery PA-C) No active medical problems Family History Family History Mother Irritable bowel disease Grandparent Lung cancer Grandparent Lung cancer Social History Social History (Updated 07/24/23 @ 17:44 by Kinjal Lowery PA-C) Smoking status: Current every day smoker Tobacco type: e-cigarettes/vaping Substance use: never Spiritual care concerns: No Exam Narrative: GENERAL: Well-appearing, well-nourished, and in no acute distress. HEAD: Normocephalic, atraumatic. EYES: EOMI. ENT: Nares clear, no rhinorrhea or epistaxis. Mucous membranes moist. Oropharynx without tonsillar hypertrophy exudate or other lesions. NECK: Supple. No adenopathy or masses. CHEST: No respiratory distress. Lung sounds mildly diminished, with diffuse expiratory wheezing. No rales or rhonchi HEART: Regular rate and rhythm. No murmur heard. Normal peripheral pulses. ABDOMEN: Soft, nontender, nondistended, normal active bowel sounds. EXTREMITIES: Normal range of motion. No edema. SKIN: Warm, dry, no rash. NEURO: No focal deficits. Alert and oriented x3. PSYCH: Normal mood and affect Course Course Emergency Course: Patient updated on her workup. Reports feeling much better after Solu-Medrol and nebulizer treatment Vital Signs Vital signs: Vital Signs Temperature 99 F 07/24/23 17:11 Pulse Rate 106 H 07/24/23 17:11 Respiratory Rate 18 07/24/23 17:11 Blood Pressure 113/84 07/24/23 17:11 Pulse Oximetry 100 07/24/23 17:11 Oxygen Delivery Room Air 07/24/23 17:11 Temperature 99 F 07/24/23 17:11 Pulse Rate 84 07/24/23 19:53 Respiratory Rate 26 H 07/24/23 19:53 Blood Pressure 112/71 07/24/23 19:53 Pulse Oximetry 95 07/24/23 19:53 Oxygen Delivery Room Air 07/24/23 18:24 MDM - SOB/Dyspnea MDM Narrative Medical decision making narrative: Patient presents to the emergency department for shortness of breath, chest pain and cough. She is afebrile and nontoxic appearing. Tachycardic upon arrival, this normalized without intervention. Patient with diffuse wheezing upon arrival. Given nebulizer treatment and steroid with relief. CBC with mild leukocytosis to 11.2. Metabolic panel without concerning findings. Urine with 6-10 white blood cells, also many squamous epithelial cells. This will be sent for culture. Patient is not symptomatic. test is negative. Chest x-ray without acute card
[2023-07-24 17:44] LABS: Alanine Aminotransferase 25 U/L (6-35); Albumin Level 4.2 g/dL (3.5-5.1); Alkaline Phosphatase 39 U/L (38-126); Anion Gap 5 mmol/L (8-16); Aspartate Amino Transferase 27 U/L (14-36); Bilirubin,Total 0.3 mg/dL (0.2-1.3); Blood Urea Nitrogen 7 mg/dL (7-17); Calcium 9.3 mg/dL (8.4-10.2); Carbon Dioxide 27 mmol/L (22-30); Chloride 107 mmol/L (98-107); Estimated CRCL calculation 87 ml/min; Estimated Glomerular Filt Rate > 60; Glucose 96 mg/dL (65-110); Lipase 174 U/L (23-300); Potassium 3.7 mmol/L (3.4-5.0); Sodium 139 mmol/L (137-145)
[2023-07-24] MEDS: KETOROLAC 15 MG/ML VIAL (*BKC) IV PUSH (17:52)
[2023-07-24] MEDS: methylPREDNISolone SOD SUCC 125 MG VIAL IV PUSH (17:52)
[2023-07-24] MEDS: FAMOTIDINE 20 MG/2 ML VIAL IV PUSH (17:52)
[2023-07-24] MEDS: ONDANSETRON INJ 4 MG/2 ML VIAL IV PUSH (17:52)
[2023-07-24 17:55] LABS: INR 0.9; Partial Thromboplastin Time 26.2 SECONDS (22.3-36.8); Prothrombin Time 12.1 Seconds (11.1-14.7)
[2023-07-24] MEDS: IPRATROPIUM 0.5 MG/ALBUTEROL SULFATE 2.5 MG AMPUL.NEB 3 ML INHALATION (18:20)
[2023-07-24 18:26] LABS: Influenza A QL RT-PCR Negative (Negative); Influenza B QL RT-PCR Negative (Negative); RSV RNA, RT-PCR Negative (Negative); SARS-CoV-2 RNA PCR Negative (Negative)
[2023-07-24 18:27] LABS: D Dimer 0.31 ug/mL (<0.48)
[2023-07-24 18:37] LABS: Troponin I < 0.012 ng/mL (0.000-0.034)
[2023-07-24 19:02] LABS: Appearance Urine Cloudy (Clear); Bacteria Urine 1+ /hpf; Bilirubin Urine Negative (Negative); Blood Urine Negative (Negative); Color Urine Yellow (Yellow); Glucose Urine UA Negative (Negative); Ketones Urine Negative (Negative); Leukocyte Esterase Ur Trace LEU/UL (Negative); Need Manual Microscopic Reviewed; Nitrate Urine Negative (Negative); Non Pathogenic Casts 0-2; Protein Urine Negative (Negative); RBC Urine 0-2 /hpf (0-2); Specific Grav Ur 1.011 (1.001-1.035); Squamous Epithelial Cell Urine Many /hpf (Few); Urobilinogen Urine 0.2 mg/dL (<2.0)
[2023-07-24 19:05] LABS: Add Urine Microscopic? YES
== END 2023-07-24 20:39 | disposition home or self-care (01) ==
PROVIDERS: Emergency Provider Physician Assistant
DX: J20.9 Acute bronchitis, unspecified (principal); F17.290 Nicotine dependence, other tobacco product, uncomplicated; Z86.16 Personal history of COVID-19; Z20.822 Contact with and (suspected) exposure to COVID-19
CPT/HCPCS: 36415; 71046; 80053; 81001; 81025; 83690; 84484; 85025; 85380; 85610; 85730; 87086; 87637; 93005; 94640; 96374; 96375; 99284; J1885; J2405; J2930

== ENCOUNTER 2023-08-05 13:47 | Outpatient (CLI) | payer BC, MEDICAID, SELFPAY ==
[2023-08-05 18:57] LABS: Basophils Absolute Auto 0.1 K/mm3 (0.0-0.1); Basophils Percent Auto 0.9 % (0.2-1.2); Eosinophils Absolute Auto 0.6 K/mm3 (0-0.3); Eosinophils Percent Auto 4.5 % (0-4.4); Hematocrit 42.4 % (37.0-47.0); Hemoglobin 13.6 g/dL (12.0-15.0); Immature Granulocyte Absolute 0.05 K/mm3 (0.00-0.031); Immature Granulocyte Percent A 0.4 % (0-0.5); Lymphocytes Absolute Auto 2.19 K/mm3 (0.9-3.2); Lymphocytes Percent Auto 17.4 % (18.3-44.2); Mean Corpuscular HGB Conc 32.1 g/dl (32-36); Mean Corpuscular Volume 96.6 fl (80-100); Mean Platelet Volume 10.6 fl (7.4-10.4); Monocytes Absolute Auto 0.8 K/mm3 (0.1-0.6); Monocytes Percent Auto 6.4 % (2.6-8.5); Neutrophils Absolute Auto 8.9 K/mm3 (1.3-6.7); Neutrophils Percent Auto 70.4 % (45.5-73.1); Platelet Count Result 276 k/mm3 (150-375); Red Blood Count 4.39 M/mm3 (4.2-5.4); Red Cell Distribution Width 12.4 % (11.5-14.5); White Blood Count 12.6 K/mm3 (4.5-10.0)
[2023-08-05 19:27] LABS: Vitamin D 25 Hydroxy 38.3 ng/mL
[2023-08-05 19:48] LABS: Erythrocyte Sedimentation Rate 17 mm/hr (0-20)
[2023-08-05 19:52] LABS: Rheumatoid Factor < 12.0 IU/ML (<12)
[2023-08-05 20:08] LABS: Alanine Aminotransferase 20 U/L (6-35); Albumin Level 4.1 g/dL (3.5-5.1); Alkaline Phosphatase 40 U/L (38-126); Anion Gap 3 mmol/L (8-16); Aspartate Amino Transferase 39 U/L (14-36); Bilirubin,Total 0.3 mg/dL (0.2-1.3); Blood Urea Nitrogen 9 mg/dL (7-17); Calcium 9.3 mg/dL (8.4-10.2); Carbon Dioxide 29 mmol/L (22-30); Chloride 106 mmol/L (98-107); Estimated Glomerular Filt Rate > 60; Glucose 90 mg/dL (65-110); Hemoglobin A1C 5.3 % (<5.7); Potassium 4.1 mmol/L (3.4-5.0); Sodium 138 mmol/L (137-145)
[2023-08-05 20:26] LABS: Thyroid Stimulating Hormone 0.829 uIU/mL (0.465-4.680)
== END 2023-08-05 13:48 | disposition home or self-care (01) ==
LOC: ANHGOSHLAB 13:49
PROVIDERS: PCP Family Medicine; Visit Provider Nurse Practitioner Family
DX: Z00.00 Encounter for general adult medical examination without abnormal findings (principal); E55.9 Vitamin D deficiency, unspecified; L65.9 Nonscarring hair loss, unspecified; M25.50 Pain in unspecified joint; R53.83 Other fatigue; R73.03 Prediabetes; Z13.29 Encounter for screening for other suspected endocrine disorder; Z13.89 Encounter for screening for other disorder
CPT/HCPCS: 36415; 80053; 82306; 83036; 84443; 85025; 85652; 86430

== ENCOUNTER 2023-09-26 10:35 | Outpatient (CLI) | payer BC, MEDICAID, SELFPAY ==
--- NOTE | ~2023-09-26 | CT_ITS ---
CT Scan of the Chest without Contrast: Clinical Indication: Shortness of breath Technique: Contiguous sections were acquired throughout the chest without intravenous contrast. Dose reduction technique was used on this scan by utilizing automated exposure control and iterative recon struction technique. The dose-length product (DLP) was 122.44 mGy-cm. Findings: There is no evidence of any significant mediastinal, hilar or axillary lymphadenopathy. The mediastin al soft tissues appear normal. There is no evidence of pleural or pericardial effusion. The lungs are clear. No pulmonary nodules or infiltrates are noted. Images through the upper abdomen reveal no abnormalities. Impression: No significant abnormalities seen. Reviewed, dictated and finalized at location . Impression: No significant abnormalities seen.
--- NOTE | 2023-09-27 14:12 | WPDPFTINT ---
PFT Procedure Performed PFT Procedure Performed Spirometry with Pre/Post Bronchodilator Plethysmography (Lung Vol) Diffusing Cap (DLCO) Flow Vol Loop PFT Interpretation This is a pulmonary function test with pre and post-bronchodilator spirometry, plethysmography and diffusing capacity. The test was performed and results interpreted in accordance with the 2019 and 2005 ATS/ERS Task Force guidelines respectively using the Global Lung Function Initiative-2012 reference equations. Patient demonstrated good effort and cooperation. Reproducibility criteria were met. The quality of the pre bronchodilator spirometry maneuver was Grade A and post bronchodilator spirometry maneuver was Grade A. Findings: Spirometry: There is decreased maximal expiratory airflow at all lung volumes with concave expiratory flow tracing. The contour the inspiratory flow tracing is normal. The pre bronchodilator FVC is 2.77 L, 77% predicted. The pre bronchodilator FEV1 is 1.47 L, 49% predicted. The pre bronchodilator FEV1: FVC ratio is 53%. The post bronchodilator FVC is 3.02 L, representing a 9% increase. The post bronchodilator FEV1 is 1.82 L, representing a 23% increase. The post bronchodilator FEV1: FVC ratio 60%. Plethysmography: The total lung capacity is 5.01 L, 102% predicted. The functional residual capacity is 2.93 L, 109% predicted. The residual volume is 2.24 L, 154% predicted. The residual volume: Total lung capacity ratio is 45%. Diffusing capacity: The diffusing capacity unadjusted for hemoglobin and carboxyhemoglobin is 17.5, 73% predicted. The diffusing capacity adjusted for alveolar volume is 4.86, 100% predicted. Impression: There is a severe obstructive abnormality. There is significant improvement after inhaling a single dose of albuterol. The increase in residual volume to total lung volume ratio is consistent with hyperinflation from an obstructive abnormality. The diffusing capacity is normal. There are no prior studies for comparison
== END 2023-09-26 10:36 | disposition home or self-care (01) ==
PROVIDERS: PCP Family Medicine; Visit Provider Physician Assistant
DX: R06.02 Shortness of breath (principal); U09.9 Post COVID-19 condition, unspecified; F17.290 Nicotine dependence, other tobacco product, uncomplicated; R94.2 Abnormal results of pulmonary function studies
CPT/HCPCS: 71250; 94060; 94726; 94729

== ENCOUNTER 2023-10-02 19:06 | Emergency (ER) | payer OTHER, SELFPAY ==
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
[2023-10-02 19:10] VITALS: BP 120/85; PULSE 87; RESP 16; TEMP 37.2; O2SAT 97
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
[2023-10-02] MEDS: KETOROLAC 30 MG/ML VIAL (*BKC) IM (20:07)
[2023-10-02] MEDS: ACETAMINOPHEN 500 MG TABLET 1000 MG PO (20:08)
[2023-10-02] MEDS: methocarbamoL 750 MG TABLET 1500 MG PO (20:08)
[2023-10-02 21:29] VITALS: BP 120/78; PULSE 86; RESP 18; O2SAT 100
== END 2023-10-02 21:44 | disposition home or self-care (01) ==
PROVIDERS: Emergency Provider Emergency Medicine; PCP Family Medicine
DX: S80.212A Abrasion, left knee, initial encounter (principal); S90.511A Abrasion, right ankle, initial encounter; S39.92XA Unspecified injury of lower back, initial encounter; F17.290 Nicotine dependence, other tobacco product, uncomplicated; V43.52XA Car driver injured in collision with other type car in traffic accident, initial encounter
CPT/HCPCS: 72131; 72170; 73562; 73600; 81025; 96372; 99284; A9270; J1885

== ENCOUNTER 2024-07-17 12:01 | Emergency (ER) | payer BC, MEDICAID, SELFPAY ==
--- NOTE | ~2024-07-17 | XR_ITS ---
EXAMINATION: XR chest 2V 07/17/2024 13:12 INDICATION: Chest pain and cough PROCEDURE: 2 view chest COMPARISON: 07/24/2023 FINDINGS: The lungs are clear. The cardiomediastinal silhouette is within normal limits. There are no pleural effusions. There is no pneumothorax suspected. IMPRESSION: 1: NO ACUTE CARDIOPULMONARY DISEASE. Reviewed, dictated and finalized at location L. LY INTERVENTION SPECIALIST
--- OUTSIDE RECORDS SUMMARY | 2024-07-17 12:05 | XMS_ITS | Data Portability ---
Author Organization [facility] YANIMatias Hardwick [facility] Address [address] [place] [address] Assessment Encounter Date Assessment Date Assessment LastModified by Organization Details LastModified Time 06/07/2016 06/07/2016 1. Contraceptive care - Refill ortho tri-cyclen lo - Discussed risks of smoking and use of combination OCPs, patient does not desire to try any other form of contraception - RTC PRN roc Not available 06/07/2016 09:35:29 Plan of Treatment Reminders Order Date Submit Date Provider Last Modified By Organization Details Last Modified Time Details Appointments None recorded. Lab test, urine 2019 020 [email or web address] In-Office Order, Internal Use Only DO Not Attach Compendium DO Not Attach Compendium, Do Not Delete/merge, [id number] 11:09:20 pap, IG + HPV 2018 019 [id number] [facility], [address], [address], 1 03:32:30 bacterial vaginosis + vaginitis panel, vaginal 2015 016 [email or web address] [facility], [address] [facility], [address], [place], [address], 6 12:57:52 pap, IG + reflex HPV if ASC-U 2015 016 [email or web address] [facility], [address] [facility], [address], [place], [address], 6 12:57:52 TSH + free T4, serum 2015 016 [email or web address] [facility], [address] [place] [address], [address], [place], [address], 6 12:57:52 prolactin, serum 2015 016 [email or web address] [facility], [address] [place] [address], [address], [place], [address], 6 12:57:52 HCG, intact + beta subunit, quant, serum or plasma 2015 016 [email or web address] [facility], [address] [place] [address], [address], [place], [address], 6 12:57:52 test, urine 2015 016 [email or web address] In-Office Order, Internal Use Only DO Not Attach Compendium DO Not Attach Compendium, Do Not Delete/merge, [id number] 6 12:57:52 Referral None recorded. Procedures None recorded. Surgeries None recorded. Imaging ultrasound , pelvic transabdom inal & transvagin al - irregular periods and pelvic pain 2015 016 [facility], [address], [place], [address], 6 01:09:33 Medication Orders Junel Fe 24 1 mg-20 mcg (24)/75 mg (4) tablet 2019 020 [facility], [address], [place], [place], [id number], 0 10:51:54 Loestrin Fe 06/15 (28-Day) 1 mg-20 mcg (21)/75 mg (7) tablet [address]/[facility], [address] [place], [address], 9 10:14:21 Orsythia 0.1 mg-20 mcg tablet 2016 [address], [address] [place], [address], 9 10:14:32 Ortho Tri-Cyclen LO (28) 0.18 mg/0.215 mg/0.25 mg-25 mcg tablet 2016 017 [address], [address] [place], [address], 9 10:14:27 Aviane 0.1 mg-20 mcg tablet 2015 016 [address] [place], [address], 9 10:14:32 Patient TargetsNo targets recorded. Patient InstructionsNo instructions recorded. Reason for Referral None Reported. Results Created Date Observation Date Name Description Value Unit Range Abnormal Flag Note LastModifiedBy Organization Detail LastModifiedTime 07/12/19 16 07/12/2015 pregn sandra test, urine HCG negati ve Not Available In-Office Order Internal Use Only DO Not Attach Compendium DO Not Attach Compendium, Do Not Delete/merge, [id number] 07/12/2015 10:44:14 06/30/19 16 07/01/2015 CBC w/ auto diff WBC 8.8 x10e3 /uL 3.4-10 .8 Not Available [facility] ([facility]) [address] [facility], [place], [address], 07/01/2015 06:28:03 06/30/19 16 07/01/2015 CBC w/ auto diff RBC 4.54 x10e6 /uL 3.77-5 .28 Not Available [facility] ([facility]) [address] [facility], [place], [address], 07/01/2015 06:28:03 06/30/19 16 07/01/2015 CBC w/ auto diff hemoglobin 14.5 g/dL 11.1-1 5.9 Not Available [facility] ([facility]) [address] [place], [address], 07/01/2015 06:28:03 06/30/19 16 07/01/2015 CBC w/ auto diff hematocrit 42.3 % 34.0-4 6.6 Not Available [facility] ([facility]) [address] [place], [address], 07/01/2015 06:28:03 06/30/19 16 07/01/2015 CBC w/ auto diff MCV 93 fL 79-97 Not Available [facility] ([facility]) [address] [facility], [place], [address], 07/01/2015 06:28:03 06/30/19 16 07/01/2015 CBC w/ auto diff MCH 31.9 pg 26.6-3 3.0 Not Available [facility] ([facility]) [address] [place], [address], 07/01/2015 06:28:03 06/30/19 16 07/01/2015 CBC w/ auto diff MCHC 34.3 g/dL 31.5-3 5.7 Not Available [facility] ([facility]) [address] [place], [address], 07/01/2015 06:28:03 06/30/19 16 07/01/2015 CBC w/ auto diff RDW 12.7 % 12.3-1 5.4 Not Available [facility] ([facility]) [address] [place], [address], 07/01/2015 06:28:03 06/30/19 16 07/01/2015 CBC w/ auto diff neutrophils 55 % Not Available [facility]) [address] [place], [address], 07/01/2015 06:28:03 06/30/19 16 07/01/2015 CBC w/ auto diff lymphs 29 % Not Available [facility] ([facility]) [address] [place], [address], 07/01/2015 06:28:03 06/30/19 16 07/01/2015 CBC w/ auto diff monocytes 7 % Not Available [facility] ([facility]) [address] [place], [address], 07/01/2015 06:28:03 06/30/19 16 07/01/2015 CBC w/ auto diff eos 8 % Not Available [facility] ([facility]) [address] [place], [address], 07/01/2015 06:28:03 06/30/19 16 07/01/2015 CBC w/ auto diff basos 1 % Not Available [facility] ([facility]) [address] [place], [address], 07/01/2015 06:28:03 06/30/19 16 07/01/2015 CBC w/ auto diff immature cells [employer] Not Available [facility] ([facility]) [address] [place], [address], 07/01/2015 06:28:03 06/30/19 16 07/01/2015 CBC w/ auto diff neutrophils (absolute) 4.9 x10e3 /uL 1.4-7. 0 Not Available [facility] ([facility]) [address] [place], [address], 07/01/2015 06:28:03 06/30/19 16 07/01/2015 CBC w/ auto diff lymphs (absolute) 2.5 x10e3 /uL 0.7-3. 1 Not Available [facility] ([facility]) [address] [place], [address], 07/01/2015 06:28:03 06/30/19 16 07/01/2015 CBC w/ auto diff monocytes(ab solute) 0.6 x10e3 /uL 0.1-0. 9 Not Available [facility] ([facility]) [address] [facility], [place], [address], 07/01/2015 06:28:03 06/30/19 16 07/01/2015 CBC w/ auto diff eos (absolute) 0.7 x10e3 /uL 0.0-0. 4 above high normal Not Available [facility] ([facility]) [address] [facility], [place], [address], 07/01/2015 06:28:03 06/30/1907/01/2015 CBC w/ auto diff baso (absolute) 0.1 x10e3 /uL 0.0-0. 2 Not Available [facility] ([facility]) [address] [facility], [place], [address], 07/01/2015 06:28:03 06/30/19 16 07/01/2015 CBC w/ auto diff immature granulocytes 0 % Not Available [facility]) [address] [place], [address], 07/01/2015 06:28:03 06/30/19 16 07/01/2015 CBC w/ auto diff immature grans (abs) 0.0 x10e3 /uL 0.0-0. 1 Not Available [facility] ([facility]) [address] [place], [address], 07/01/2015 06:28:03 06/30/1907/01/2015 CBC w/ auto diff NRBC [employer] Not Available [facility] ([facility]) [address] [place], [address], 07/01/2015 06:28:03 06/30/1907/01/2015 CBC w/ auto diff hematology comments: [employer] Not Available [facility] ([facility]) [address] [facility], [place], [address], 07/01/2015 06:28:03 06/30/19 16 07/01/2015 CMP, serum or plasm a glucose, serum 85 mg/dL 65-99 Not Available [facility] ([facility]) [address] [place], [address], 07/01/2015 06:28:05 06/30/19 16 07/01/2015 CMP, serum or plasm a BUN 9 mg/dL 6-20 Not Available [facility] ([facility]) [address] [place], [address], 07/01/2015 06:28:05 06/30/19 16 07/01/2015 CMP, serum or plasm a creatinine, serum 0.71 mg/dL 0.57-1 .00 Not Available [facility] ([facility]) [address] [place], [address], 07/01/2015 06:28:05 06/30/19 16 07/01/2015 CMP, serum or plasm a eGFR if nonafricn AM 116 mL/mi n/1.7 3 >59 Not Available [facility] ([facility]) [address] [place], [address], 07/01/2015 06:28:05 06/30/19 16 07/01/2015 CMP, serum or plasm a eGFR if africn AM 134 mL/mi n/1.7 3 >59 Not Available [facility] ([facility]) [address] [place], [address], 07/01/2015 06:28:05 06/30/19 16 07/01/2015 CMP, serum or plasm a BUN/creatini ne ratio 13 8-20 Not Available [facility] ([facility]) [address] [place], [address], 07/01/2015 06:28:05 06/30/19 16 07/01/2015 CMP, serum or plasm a sodium, serum 142 mmol/ L 134-14 4 Not Available [facility] ([facility]) [address] [place], [address], 07/01/2015 06:28:05 06/30/1907/01/2015 CMP, serum or plasm a potassium, serum 4.5 mmol/ L 3.5-5. 2 Not Available [facility] ([facility] [address] [place], [address], 07/01/2015 06:28:05 06/30/1907/01/2015 CMP, serum or plasm a chloride, serum 102 mmol/ L 97-108 Not Available [facility] ([facility]) [address] [place], [address], 07/01/2015 06:28:06/30/1907/01/2015 CMP, serum or plasm a carbon dioxide, total 25 mmol/ L 18-29 Not Available [facility] ([facility]) [address] [place], [address], 07/01/2015 06:28:05 06/30/1907/01/2015 CMP, serum or plasm a calcium, serum 9.1 mg/dL 8.7-10 .2 Not Available [facility] ([facility]) [address] [place], [address], 07/01/2015 06:28:06/30/1907/01/2015 CMP, serum or plasm a protein, total, serum 7.0 g/dL 6.0-8. 5 Not Available [facility] ([facility]) [address] [place], [address], 07/01/2015 06:28:06/30/1907/01/2015 CMP, serum or plasm a albumin, serum 4.3 g/dL 3.5-5. 5 Not Available [facility] ([facility]) [address] [place], [address], 07/01/2015 06:28:05 06/30/19 16 07/01/2015 CMP, serum or plasm a globulin, total 2.7 g/dL 1.5-4. 5 Not Available [facility] ([facility]) [address] [place], [address], 07/01/2015 06:28:05 06/30/19 16 07/01/2015 CMP, serum or plasm a A/G ratio 1.6 1.1-2. 5 Not Available [facility] ([facility]) [address] [place], [address], 07/01/2015 06:28:05 06/30/19 16 07/01/2015 CMP, serum or plasm a bilirubin, total 0.4 mg/dL 0.0-1. 2 Not Available [facility] ([facility]) [address] [place], [address], 07/01/2015 06:28:06/30/19 16 07/01/2015 CMP, serum or plasm a alkaline phosphatase, S 38 IU/L 39-117 below low normal Not Available [facility] ([facility]) [address] [place], [address], 07/01/2015 06:28:05 06/30/19 16 07/01/2015 CMP, serum or plasm a AST (SGOT) 14 IU/L 0-40 Not Available [facility] ([facility]) [address] [place], [address], 07/01/2015 06:28:06/30/1907/01/2015 CMP, serum or plasm a ALT (SGPT) 13 IU/L 0-32 Not Available [facility] ([facility]) [address] [place], [address], 07/01/2015 06:28:05 06/30/19 16 07/01/2015 lipid panel , serum cholesterol, total 157 mg/dL 100-19 9 Not Available [facility] ([facility]) [address] [place], [address], 07/01/2015 06:28:07 06/30/19 16 07/01/2015 lipid panel , serum triglyceride s 72 mg/dL 0-149 Not Available [facility] ([facility]) [address] [place], [address], 07/01/2015 06:28:07 06/30/1907/01/2015 lipid panel , serum HDL cholesterol 49 mg/dL >39 ACCOR DING TO ATP-I II GUIDE LINES , HDL-C >59 MG/DL IS CONSI DERED A NEGAT HIEN RISK FACTO R FOR CHD. Not Available [facility] ([facility]) [address] [place], [address], 07/01/2015 06:28:07 06/30/19 16 07/01/2015 lipid panel , serum VLDL cholesterol mayo 14 mg/dL 5-40 Not Available [facility] ([facility]) [address] [place], [address], 07/01/2015 06:28:07 06/30/1907/01/2015 lipid panel , serum LDL cholesterol calc 94 mg/dL 0-99 Not Available [facility] ([facility]) [address] [place], [address], 07/01/2015 06:28:07 06/30/19 16 07/01/2015 lipid panel , serum comment: [employer] Not Available [facility] ([facility]) [address] [place], [address], 07/01/2015 06:28:07 06/30/1907/01/2015 TSH, serum or plasm a TSH 0.742 uIU/m L 0.450- 4.500 Not Available [facility] ([facility]) [address] [place], [address], 07/01/2015 06:28:08 07/12/19 16 07/13/2015 TSH + free T4, serum TSH 1.620 uIU/m L 0.450- 4.500 Not Available [facility] ([facility]) [address] [place], [address], 07/13/2015 07:18:49 07/12/19 16 07/13/2015 TSH + free T4, serum T4,free(dire ct) 1.13 NG/dL 0.82-1 .77 Not Available [facility] ([facility]) [address] [place], [address], 07/13/2015 07:18:49 07/12/1907/13/2015 HCG, intac t + beta subun it, quant , serum or plasm a HCG,beta subunit,qnt, serum <1 mIU/m L FEMAL E (NON- PREGN ANT) 0 - 5 (POST MENOP AUSAL ) 0 - 8 FEMAL E (PREG NANT) WEEKS OF GESTA TION 3 6 - 71 4 10 - 750 5 537 - 9961 6 149 - 11091 7 8775 -0378 63 8 82212 -1739 71 9 96529 -0314 10 10 63966 -9914 77 12 18348 -5705 12 14 98549 - 41815 15 78794 - 08303 16 2698 - 55802 17 2933 - 00749 18 2791 - 87028 LUIS ALBERTO ECLIA METHO DOLOG Y Not Available [facility] ([facility]) [address] [place], [address], 07/13/2015 07:18:50 07/12/1907/13/2015 prola ctin, serum prolactin 7.7 NG/mL 4.8-23 .3 Not Available [facility] ([facility]) [address] [place], [address], 07/13/2015 07:18:50 07/12/19 16 07/14/2015 pap, IG + refle x HPV if ASC-U diagnosis: COMMEN T NEGAT HIEN FOR INTRA EPITH ELIAL FOSTER Shafer AND CAROL LATHAM . Not Available [facility] ([facility]) [address] [place], [address], 07/14/2015 16:32:26 07/12/19 16 07/14/2015 pap, IG + refle x HPV if ASC-U specimen adequacy: JUANY T SATIS FACTO RY FOR EVALU ATION . ENDOC ERVIC AL AND/O R SQUAM OUS METAP LASTI C CELLS (ENDO CERVI MAYO COMPO NENT) ARE PRESE NT. Not Available [facility] ([facility]) [address] [facility], [place], [address], 07/14/2015 16:32:26 07/12/19 16 07/14/2015 pap, IG + refle x HPV if ASC-U performed by: JUANY Shafer, CYTOT DAVIS Barrios (ASCP ) Not Available [facility] ([facility]) [address] [place], [address], 07/14/2015 16:32:26 07/12/19 16 07/14/2015 pap, IG + refle x HPV if ASC-U . . Not Available [facility] ([facility]) [address] [place], [address], 07/14/2015 16:32:26 07/12/19 16 07/14/2015 pap, IG + refle x HPV if ASC-U note: JUANY T THE PAP SMEAR IS A SCREE DAIANA TEST DESIG ROCÍO TO AID IN THE DETEC TION OF LATRICE LIGNA NT AND MALIG NANT CONDI TIONS OF THE UTERI NE CERVI X. IT IS NOT A DIAGN OSTIC PROCE DURE AND SHOUL D NOT BE USED THE SOLE MEANS OF DETEC TING CERVI MAYO CANCE R. BOTH FALSE -POSI TIVE AND FALSE -NEGA TIVE REPOR TS DO OCCUR . Not Available [facility] ([facility]) [address] [place], [address], 07/14/2015 16:32:26 07/12/19 16 07/14/2015 pap, IG + refle x HPV if ASC-U test methodology: COMMEN T THIS LIQUI D BASED THINP REP(R ) PAP TEST WAS SCREE ROCÍO WITH THE USE OF AN IMAGE GUIDE Virginia Cosme. Not Available [facility] ([facility]) [address] [place], [address], 07/14/2015 16:32:26 07/12/19 16 07/14/2015 pap, IG + refle x HPV if ASC-U . COMMEN T THE HPV DNA REFLE X CRITE KAELA WERE NOT MET WITH THIS SPECI MEN RESUL T THERE FORE, NO HPV TESTI NG WAS PERFO RMED. Not Available [facility] ([facility]) [address] [place], [address], 07/14/2015 16:32:26 07/12/19 16 07/14/2015 bacte rial vagin osis + vagin itis panel , vagin al atopobium vaginae HIGH - 2 score abnormal Not Available [facility] ([facility]) [address] [place], [address], 07/15/2015 11:21:43 07/12/19 16 07/14/2015 bacte rial vagin osis + vagin itis panel , vagin al bvab 2 LOW - 0 score Not Available [facility] ([facility]) [address] [place], [address], 07/15/2015 11:21:43 07/12/19 16 07/14/2015 bacte rial vagin osis + vagin itis panel , vagin al megasphaera 1 HIGH - 2 score abnormal CALCU LATE TOTAL SCORE BY EMYM G THE 3 INDIV IDUAL BACTE RIAL VAGIN OSIS (BV) MARKE R SCORE S TOGET HER. TOTAL SCORE IS INTER PRETE D FOLLO WS: TOTAL SCORE 0-1: INDIC ATES THE ABSEN CE OF BV. TOTAL SCORE 2: INDET ERMIN ATE FOR BV. ADDIT IONAL CLINI MAYO DATA SHOUL D BE EVALU ATED TO ESTAB MILENA A DIAGN OSIS. TOTAL SCORE 3-6: INDIC ATES THE PRESE NCE OF BV. THIS TEST WAS DEVEL OPED AND ITS PERFO RMANC E AMAURY CTERI STICS DETER MINED BY [facility]. IT HAS NOT BEEN CLEAR ED OR APPRO EDIN BY THE FOOD AND DRUG ADMIN ISTRA TION. THE FDA HAS DETER MINED THAT SUCH CLEAR ANCE OR APPRO CASSIA IS NOT NECES KELLEN. Not Available [facility] ([facility]) [address] [place], [address], 07/15/2015 11:21:43 07/12/19 16 07/14/2015 bacte rial vagin osis + vagin itis panel , vagin al kj albicans, JOHNSON NEGATI VE negati ve Not Available [facility] ([facility]) [address] [place], [address], 07/15/2015 11:21:43 07/12/19 16 07/14/2015 bacte rial vagin osis + vagin itis panel , vagin al kj glabrata, JOHNSON NEGATI VE negati ve THIS TEST WAS DEVEL OPED AND ITS PERFO RMANC E AMAURY CTERI STICS DETER MINED BY [facility]. IT HAS NOT BEEN CLEAR ED OR APPRO EDIN BY THE FOOD AND DRUG ADMIN ISTRA TION. THE FDA HAS DETER MINED THAT SUCH CLEAR ANCE OR APPRO CASSIA IS NOT NECES KELLEN. Not Available [facility] ([facility]) [address] [place], [address], 07/15/2015 11:21:43 07/12/1907/14/2015 bacte rial vagin osis + vagin itis panel , vagin al trich vag by JOHNSON NEGATI VE negati ve Not Available [facility] ([facility]) [address] [place], [address], 07/15/2015 11:21:43 07/12/19 16 07/15/2015 bacte rial vagin osis + vagin itis panel , vagin al chlamydia trachomatis, JOHNSON NEGATI VE negati ve Not Available [facility] ([facility]) [address] [place], [address], 07/15/2015 11:21:43 07/12/19 16 07/15/2015 bacte rial vagin osis + vagin itis panel , vagin al neisseria gonorrhoeae, JOHNSON NEGATI VE negati ve Not Available [facility] ([facility]) [address] [place], [address], 07/15/2015 11:21:43 09/30/19 19 10/01/2018 pap, IG + HPV diagnosis: Juany STANFORD FOR INTRA EPITH ELIAL LESIO N OR CAORL LATHAM . Not Available [facility] ([facility]) [address] [place], [address], 10/01/2018 16:11:44 09/30/19 19 10/01/2018 pap, IG + HPV specimen adequacy: Juany barrios Satis facto pee for evalu ation . Endoc ervic al and/o r squam ous metap lasti c cells (endo cervi mayo compo nent) are prese nt. Not Available [facility] ([facility]) [address] [place], [address], 10/01/2018 16:11:44 09/30/19 19 10/01/2018 pap, IG + HPV clinician provided ICD10: Juany barrios Z01.4 19 Not Available [facility] ([facility]) [address] [place], [address], 10/01/2018 16:11:44 09/30/19 19 10/01/2018 pap, IG + HPV performed by: Juany almazan, Cytot davis barrios (ASCP ) Not Available [facility] ([facility]) [address] [place], [address], 10/01/2018 16:11:44 09/30/19 19 10/01/2018 pap, IG + HPV . . Not Available [facility] ([facility]) [address] [place], [address], 10/01/2018 16:11:44 09/30/19 19 10/01/2018 pap, IG + HPV note: Commen t The Pap smear is a scree daiana test desig rocío to aid in the detec tion of latrice ligna nt and malig nant condi tions of the uteri ne cervi x. It is not a diagn ostic proce dure and shoul d not be used as the sole means of detec ting cervi mayo cance r. Both false -posi tive and false -nega tive repor ts do occur . Not Available [facility] ([facility]) [address] [facility], [place], [address], 10/01/2018 16:11:44 09/30/19 19 10/01/2018 pap, IG + HPV test methodology: Merylen t This liqui d based ThinP rep(R ) pap test was scree rocío with the use of an image guide d syste m. Not Available [facility] ([facility]) [address] [facility], [place], [address], 10/01/2018 16:11:44 09/30/1910/01/2018 pap, IG + HPV HPV aptima Negati ve negati ve This test detec ts fourt een high- risk HPV types (16/1 8/31/ 33/35 /39/4 5/ 51/52 /56/5 8/59/ 66/68 ) witho ut diffe renti ation . Not Available [facility] ([facility]) [address] [facility], [place], [address], 10/01/2018 16:11:44 04/18/2004/18/2020 pregn sandra test, urine HCG negati ve Not Available In-Office Order Internal Use Only DO Not Attach Compendium DO Not Attach Compendium, Do Not Delete/merge, [id number] 04/18/2020 10:33:36 07/31/19 16 07/29/2015 ultra sound , pelvi c trans abdom inal & trans vagin al No observ ation record ed. [email or web address] [address] [place], [address], 08/01/2015 11:58:54 Result Notes None recorded. Problems Name Problem SNOMED Code Status Onset Date Resolution Date Notes Provider Name and Address Organization Details Recorded Time Smoker 23977577 Active Vannesa Gallegos RN null, [place] - [place] 6 10:10:58 Skin lesion 41844300 Active Vannesa Galleg[place] 10:10:58 Irregular periods 09103032 Active Denice Mall[place] 6 12:57:51 Vaginal discharge 968279589 Active Denice Mall[place], [place] [facility] 6 12:57:51 Bacterial vaginosis 095472592 Active Vannesa Gallegos RN [place], [place] 6 11:59:16 Problem Notes None recorded. Procedures Surgical History Date Name Laterality Status Provider Name and Address Organization Details Recorded Time 4 Tonsillectomy completed Yan Leiva MA [facility] 02/01/2015 09:57:32 5 Appendectomy completed Yan Leiva MA [facility] 02/01/2015 09:57:32 3 Eye Surgery completed Yan Leiva MA [facility] 02/01/2015 09:57:32 Imaging Results Imaging Date Name Status LastModified by Organization Details LastModified Time 07/29/2015 ultrasound, pelvic transabdominal & transvaginal completed [email or web address] [place], [address], 08/01/2015 11:58:54 Procedure Notes None recorded. Medical Equipment None Reported. Allergies Allergen ID Allergen Name Allergen Category Reaction Reaction Severity Criticality Documentation Date Start Date Code Code System Note Provider Name and Address Organization Details Recorded Time 96572 latex environme nt,medica tion itching Not available Not available 01/26/2015 00163 91 RxNorm Not Available Not Available Not Available 78826 Lo Loestrin Fe medicatio n rash Not available Not available 01/27/2015 54502 UNK Not Available Not Available Not Available Medications Name Sig Start Date Stop Date Status Note LastModified by Organization Details LastModified Time amoxicill in 500 mg capsule active Not Available Not Available Not Available Loestrin Fe 20 (28-Day) 1 mg-20 mcg (21)/75 mg (7) tablet Take 1 tablet every day by oral route. 10/07 completed Not Available Not Available Not Available clobetaso l 0.05 % topical cream 06/07 completed Not Available Not Available Not Available tramadol 50 mg tablet active Not Available Not Available Not Available Flagyl 500 mg tablet Take 1 tablet twice a day by oral route as directed for 7 days. 06/07 completed Not Available Not Available Not Available Loestrin 1/20 (21) 1 mg-20 mcg tablet Take 1 tablet every day by oral route. 2018 active Not Available Not Available Not Avai lable methylpre dnisolone 4 mg tablets in a dose pack 02/01 completed Not Available Not Available Not Available Ortho Tri-Cycle n LO (28) 0.18 mg/0.215 mg/0.25 mg-25 mcg tablet Take 1 tablet every day by oral route for 28 days. 10/07 completed Not Available Not Available Not Available Lo Loestrin Fe 1 mg-10 mcg (24)/10 mcg (2) tablet Take 1 tablet every day by oral route. 02/01 completed Changed to ortho tri-cycl en Lo Not Available Not Available Not Available Orsythia 0.1 mg-20 mcg tablet TAKE 1 TABLET BY MOUTH EVERY DAY 10/07 completed Not Available Not Available Not Available Junel Fe 24 1 mg-20 mcg (24)/75 mg (4) tablet Take 1 tablet by mouth once daily 2020 active Not Available Not Available Not Avai silas Vitals Date Recorded Body weight Systolic blood pressure Diastolic blood pressure Provider Name and Address Organization Details Last Updated DateTime 09/29/2018 11504.86 g 112 mm[Hg] 66 mm[Hg] Kacy Adams [place] - [facility] 09/29/2018 10:47:42 Date Recorded Body height Body mass index (BMI) Body weight Systolic blood pressure Diastolic blood pressure Provider Name and Address Organization Details Last Updated DateTime 04/18/2020 160.02 cm 26.9 kg/m2 27635.04 g 110 mm[Hg] 74 mm[Hg] Renita Arellano MA [facility] 0 10:33:05 Date Recorded Body weight Body mass index (BMI) Body height Systolic blood pressure Diastolic blood pressure Provider Name and Address Organization Details Last Updated DateTime 07/12/2015 54218.89 365 g 25.7 kg/m2 160.02 cm 112 mm[Hg] 76 mm[Hg] Vannesa Gallegos RN [facility] 6 10:10:58 Date Recorded Body height Body weight Body mass index (BMI) Systolic blood pressure Diastolic blood pressure Provider Name and Address Organization Details Last Updated DateTime 06/07/2016 160.02 cm 69017.29 g 26.6 kg/m2 114 mm[Hg] 70 mm[Hg] Sanjuana Jaffe MA [facility] 7 09:08:10 Date Recorded Body height Body weight Body mass index (BMI) Systolic blood pressure Diastolic blood pressure Provider Name and Address Organization Details Last Updated DateTime 09/25/2016 160.02 cm 31593.25 g 27.5 kg/m2 138 mm[Hg] 82 mm[Hg] Sanjuana Jaffe MA [facility] 7 11:40:18 Social History Question Answer Notes LastModified by Organizat ion Details LastModified Time Tobacco Smoking Status Current Every Day Smoker Sanjuana Jaffe MA null, [facility] 01/26/2015 10:54:00 What Is Your Level Of Alcohol Consumption? Occasional Information not available 01/26/2015 Is Blood Transfusion Acceptable In An Emergency? Yes [email or web address] Information not available 07/12/2015 What Is Your Level Of Caffeine Consumption? Heavy Information not available 01/26/2015 Live Alone Or With Others? With Others Information not available 01/26/2015 What Was The Date Of Your Most Recent Tobacco Screening? 09/29/2018 Information not available 12/18/2018 How Many Children Do You Have? 2 Information not available 01/26/2015 What Is Your Relationship Status? Information not available 01/26/2015 How Much Tobacco Do You Smoke? 1 PPW ins Information not available 01/26/2015 General Stress Level Medium Information not available 02/01/2015 How Many Years Have You Smoked Tobacco? 10 [email or web address] Information not available 01/26/2015 Sex: Unknown Functional Status None recorded. Mental Status None recorded. Family History Relationship Description Onset Age of this Age Resolved Age Notes LastModified by Organization Details LastModified Time Mother Alcohol abuse [email or web address] Not available 07/12 10:10:58 Mother Migraine [email or web address] Not availab le 07/12/2015 10:10:58 Mother Arthritis [email or web address] Not availa ble 07/12/2015 10:10:58 Father Diabetes mellitus Not available 07/12 10:10:58 Brother Attention deficit hyperactivit y disorder [email or web address] Not available 06/27 10:10:58 Brother Lymphoma finding [email or web address] Not available 07/12 10:10:58 Medical History Condition Response Heart Problems N Other N Breast Cancer N Thyroid Problems N Kidney or Bladder Problems N GI Problems N Lung Disease N Depression N Acne N Breast Problem N Eating Disorder N Anemia N Anesthesia Complications N Headaches/Migraines N Anxiety Disorder N Diabetes N Ovarian Cancer N Blood Transfusions N Arthritis N Polyps N Infertility N Acid Reflux (GERD) N Cancer N Stroke N Abuse/Domestic Violence N Asthma N Endometriosis N High Cholesterol N Hepatitis N Heart Disease N Fibromyalgia N Headaches Y Pre-Eclampsia N Hypertension N Osteoporosis N Kidney Disease N Gynecological History Statement/Question Response Flow Light Sexually Active? Y Duration of Flow (days) 5 Sexual Problems? N Current Control Method BCPs Age at First Child 24 LMP Approximate Obstetrics History GPAL:G 4 P 0 0 2 2 Type Value Spontaneous 2 Living 2 Total 4 Immunizations Vaccine Type Date Status Note Provider Nam e and Address Organization Details Recorded Time Tdap 02/21/2010 completed [place] [place] [facility] 02/01/2015 10:09:15 Past Encounters Encounter ID Performer Location Encounter Start Date Encounter Closed Date Diagnosis/Indication Diagnosis SNOMED-CT Code Diagnosis ICD10 Code Diagnosis Note [id number] Yana Rangel ([place] [address]) [address] [facility] [address] [place] [address] 01/26/2015 10:33:45 01/27/2015 10:49:53 Contraception care [id number] Casandra Velásquez (Adult Med) [address] [place] [address] 02/01/2015 09:38:48 02/01/2015 10:25:25 Adult health examination 984471795 Encouraged well balanced meals, active lifestyle, and routine 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 Smoker 43596182 Has trie d to quit with 2 failed attempts. Wellbutrin caused mood swings. Faild 'cold turkey'. Longest quit time 3 weeks. Will continue to try. smoker as well. Skin lesion 69090403 Pat ient having elevation of scars, thought to be from BCP lo estrin she was taken. 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 Hyperlipid emia screening 640002313 Diabetes m ellitus screening 914266307 Thyroid di sorder screening 287527729 Anemia screening 213997763 [id number] Denice Rangel ([place] [address]) [address] [facility] [place] [address] 07/12/2015 09:56:25 07/12/2015 11:49:42 Irregular periods 42037004 N92.6 Patient having irregular cycles on triphasic pill. And concerned about ovarian cyst due to bilateral pelvic pain. Will order pelvic ultrasound and change to monophasic pill. Change from lo estrin previously due to dermatolog y concern about causing lichen planus. Will change to another monophasic pill hopefully covered by insurance. Gynecologi c examination 75559684 Z01.419 Vaginal discharge 597089 006 N89.8 Contraception care 85321 5005 Z30.40 [id number] MD James Arguelles ([place] [address]) [address] [facility] [place] [address] 06/07/2016 08:45:56 06/07/2016 12:48:44 Contraception care 066033031 Z30.40 [id number] MD James Arguelles ([place] [address]) [address] [facility] [place] [address] 09/25/2016 11:31:23 09/25/2016 12:28:27 Contraception care 761603167 Z30.40 Discontinu e ortho tri-cyclen lo [id number] MD James Arguelles 14 OB [address] [facility] [address] [place] [address] 09/29/2018 10:36:02 09/29/2018 12:37:17 Gynecologic examination 50432073 Z01.419 CBE and pap smear performed Contracept ion care management 636810865 Z30.9 [id number] MD James Arguelles 14 OB [address] [facility] [address] [place] [address] 04/18/2020 10:24:22 04/19/2020 11:14:22 Contraception care management 857691356 Z30.9 Routine gy necologic examination done 2683471413 9101 Z01.419 CBE and pelvic exam performed. Health Concerns Section Related Observation LastModified by Organization Detai ls LastModified Time None Recorded Concern Status LastModified by Organization Details LastModified Time None Recorded Advance Directives Directive None Recorded Payers Encounter Date Sequence Insurance Name Policy Number Policy Preston Covered Member ID Preston Member ID Guarantor Name 07/12/2015 1 [place] [id number] Trae Harden [id number] Harpreet Harden 06/07/2016 1 [place] Harpreet Harden [id number] Harpreet Harden 09/25/2016 2 [facility] PRIOR TO 11/24/2020 (MEDICAID REPLACEMENT - HMO) Harpreet Harden [id number] Harpreet Harden 09/29/2018 2 [facility] PRIOR TO 11/24/2020 (MEDICAID REPLACEMENT - HMO) Harpreet Harden [id number] Harpreet Harden 09/29/2018 1 [place] [id number] Trae Harden [id number] Harpreet Harden 04/18/2020 2 [facility] PRIOR TO 11/24/2020 (MEDICAID REPLACEMENT - HMO) Harpreet Harden [id number] Harpreet Harden 04/18/2020 1 [place] [id number] Trae Harden [id number] Harpreet Harden Notes Date Note Type Note Provider Name and Address Organization Details Recorded Time 07/12/2015 text/html Annual GYNReport ed bypatient.History:no gynecologic complaints Menstrual cycle:Normal menses Urinary symptoms:No hematuria; No incontinence Vulva:No genital lesion Vagina:Normal vaginal discharge Breast:No breast pain; No breast lump; No nipple discharge Current Contraception:Mon[place] mous relationship; Oral contraceptives Sexual complaints:No sexual complaints Menopausal Symptoms:No menopausal symptoms Psychological symptoms:No depression; No anxiety; No PMDD Preventive measures:Encourage self breast examination; Encourage regular exercise [facility] 07/22/2015 12:57:59 06/07/2016 text/html Patient has been on control for contraception and desires a refill. She has no issues with her current medication and does not desire to try a new form of contraception. No other complaints at this time. Jose Enrique Castaneda MD Attn: [address] [place], [address], [facility] 06/07/2016 09:36:23 09/25/2016 text/html Patient presents today because she would like to change her brand of control pills. She states the ones she currenlty takes causes migraines without aura. She denies any other complaints. Jose Enrique Castaneda MD Attn: [address] [place], [address], [facility] 09/25/2016 11:53:21 09/29/2018 text/html Annual GYNReport ed bypatient.History:no gynecologic complaints Menstrual cycle:Normal menses Urinary symptoms:No hematuria; No incontinence Vulva:No genital lesion Vagina:Normal vaginal discharge Breast:No breast pain; No breast lump; No nipple discharge Current Contraception:Wants to discuss contraceptive options (desires OCPs) Sexual complaints:No sexual complaints; No pain during intercourse; Normal libido Menopausal Symptoms:No menopausal symptoms; Normal vaginal lubrication Psychological symptoms:No depression; No anxiety; No PMDD Jose Enrique Castaneda MD Attn: [address] [place], [address], [facility] 09/29/2018 11:01:25 04/18/2020 text/html Annual GYNReport ed bypatient.History:no gynecologic complaints Menstrual cycle:Normal menses Urinary symptoms:No hematuria; No incontinence Vulva:No genital lesion Vagina:Normal vaginal discharge Breast:No breast pain; No breast lump; No nipple discharge Current Contraception:Oral contraceptives Sexual complaints:No sexual complaints; No pain during intercourse; Normal libido Menopausal Symptoms:No menopausal symptoms; Normal vaginal lubrication Psychological symptoms:No depression; No anxiety; No PMDD Jose Enrique Castaneda MD Attn: [address] [place], [address], [facility] 04/18/2020 12:13:51 OBGyn Episode No OBEpisode recorded.
--- OUTSIDE RECORDS SUMMARY | 2024-07-17 12:05 | XMS_ITS | Continuity of Care Document ---
Author Organization [facility] Address [address] [place] [address] Phone Care Team Providers Care Divisional Merchandising Manager Name Role Phone Kat Young Unavailable Unavailable Advance Directives Directive Yes / No Effective Date File Name No Information Encounters Encounter Description Practice Location Reason(s) For Visit Diagnoses Date Provider Providers Copied on Encounter [facility], [address], [place], [place], [id number], [place] tel:[phone] SEC [facility] No Information 0 2-[address] Hannah Stephens. [address] , [address], [place], [address], [place]. tel:[phone] Family History Family Member Type Diagnosis Age At Onset No Information Payers Payer name Insurance type Covered libertarian ID Authoriza tion(s) Medicaid [facility] [id number] Social History Type Description Quantity Date Captured Comments Sex Female Smoking Status No Information Chief Complaint And Reason For Visit No Information Reason For Referral Reason For Referral No Information History Of Present Illness Encounter Date Complaint History Of Prese nt Illness No Information Functional Status Date Functional Assessmen t No Information Instructions Date Instruction Additional Infor mation No Information Assessments Type Assessment Date No Information Patient Care Teams Name Effective Dates (start - stop) Status Members No Information
[2024-07-17 12:12] VITALS: BP 121/77; PULSE 99; RESP 18; TEMP 36.4; O2SAT 96
--- NOTE | 2024-07-17 12:15 | ECG_ITS ---
Test Date: 2024-07-17 12:18:48 Measurements Intervals [place] Rate: 103 P: 78 NM: 118 QRS: 69 QRSD: 85 T: -32 QT: 318 QTc: 417 Interpretive Statements SINUS TACHYCARDIA LOW QRS VOLTAGE IN PRECORDIAL LEADS NONSPECIFIC ST & T-WAVE ABNORMALITY- ANTEROLAT/INF LEADS BASELINE WANDER- I, II, III, AVF, V1-V6 BORDERLINE ECG No previous ECG available for comparison Electronically Signed On 07-17-2024 13:14:21 SLEEPING CAR SERVICE ATTENDANT by Shade Panda D.O.
--- NOTE | 2024-07-17 12:16 | ED.SOB ---
HPI - SOB/Dyspnea General Chief Complaint: Shortness of Breath/Dyspnea <ROSA Sherman Last Filed: 07/17/24 12:24> Stated Complaint: meyer/sob/cough <ROSA Sherman Last Filed: 07/17/24 12:24> Time Seen by Provider: 07/17/24 12:16 <ROSA Sherman Last Filed: 07/17/24 12:24> Focused HPI: Patient is a 38 y/o female who presents to the ED with c/o URI sx's. Patient reports she has been sick for the past 1 week with cough, shortness of breath, chest pain, MEYER, wheezing, generalized weakness, myalgias. Patient reports hx of covid related asthma. Has been using inhaler at home w/o improvement. Denies fevers, pain or swelling in legs. Denies hx of blood clots. States son was recently sick with similar sx's. GENERAL: Well-appearing, obese with BMI of 31.0, and in no acute distress. HEAD: Normocephalic, atraumatic. CHEST: No respiratory distress. Diffuse kevin faint expiratory wheezing. Slight rhonchi in R lung base. No tachypnea or accessory muscle use. HEART: Regular rate and rhythm.? NEURO: ?Alert and oriented x3. Patient screened in triage and initial orders placed.? ?Additional care and disposition to be based upon?diagnostic testing and treatment. <ROSA Sherman Last Filed: 07/17/24 12:24> Source: patient <ROSA Sherman Last Filed: 07/17/24 12:24> Mode of arrival: ambulatory <ROSA Sherman Last Filed: 07/17/24 12:24> Limitations: no limitations <ROSA Sherman Last Filed: 07/17/24 12:24> Related Data Home Medications: Home Medications ?Medication ?Instructions ?Recorded ?Confirmed ?Last Taken ?Type norethindrone (contraceptive) 0.35 0.35 mg PO DAILY 10/10/22 09/02/23 Unknown History mg tablet <ROSA Sherman Last Filed: 07/17/24 12:24> Allergies/Adverse Reactions: Allergies Allergy/AdvReac Type Severity Reaction Status Date / Time sumatriptan AdvReac Unknown Nervousness Verified 10/02/23 19:16 <Gracy Nelson PA-C - Last Filed: 07/17/24 12:24> Review of Systems Review of Systems: CONSTITUTIONAL: Denies fever ENT: Reports congestion CARDIOVASCULAR: Denies palpitations, or edema. RESPIRATORY: Reports cough and dyspnea. <ROSA Varela Last Filed: 07/17/24 19:22> All systems reviewed & are unremarkable except as noted in HPI and below <Kinjal Lowery PA-C - Last Filed: 07/17/24 19:22> [facility] Past Medical History Medical History: Medical History Family history of lupus Fatigue Hair loss Joint pain No active medical problems Post-COVID chronic shortness of breath SOB (shortness of breath) on exertion <Gracy Nelson PA-C - Last Filed: 07/17/24 12:24> Family History Family History: Family History Mother Irritable bowel disease Grandparent Lung cancer Grandparent Lung cancer <Gracy Nelson PA-C - Last Filed: 07/17/24 12:24> Social History Social History: Social History Smoking status: Current every day smoker (Significant vape use daily) Tobacco type: e-cigarettes/vaping Substance use: never Spiritual care concerns: No <ROSA Sherman Last Filed: 07/17/24 12:24> Exam Narrative: GENERAL: Well-appearing, well-nourished, and in no acute distress. HEAD: Normocephalic, atraumatic. EYES: EOMI. ENT: Nares clear, no rhinorrhea or epistaxis. Mucous membranes moist. Oropharynx without tonsillar hypertrophy exudate or other lesions. Bilateral TMs pearly mccullough non-bulging NECK: Supple. No adenopathy or masses. CHEST: No respiratory distress. Diffuse expiratory wheezing. No rales or rhonchi HEART: Regular rate and rhythm. No murmur heard. Normal peripheral pulses. EXTREMITIES: Normal range of motion. No edema. SKIN: Warm, dry, no rash. NEURO: No focal deficits. Alert and oriented x3. PSYCH: Normal mood and affect <ROSA Varela Last Filed: 07/17/24 19:22> Course Course Emergency Course: Patient updated on her workup she does have continued wheezing after nebulizer treatment, although lungs are more opened up. She does not wish to stay for any further evaluation or treatment <ROSA Varela Last Filed: 07/17/24 19:22> Vital Signs Vital signs: Vital Signs Temperature 97.6 F 07/17/24 12:12 Pulse Rate 99 07/17/24 12:12 Respiratory Rate 18 07/17/24 12:12 Blood Pressure 121/77 07/17/24 12:12 Pulse Oximetry 96 07/17/24 12:12 Temperature 97.6 F 07/17/24 12:12 Pulse Rate 96 07/17/24 18:23 Respiratory Rate 20 07/17/24 18:23 Blood Pressure 121/77 07/17/24 12:12 Pulse Oximetry 96 07/17/24 12:12 Oxygen Delivery Room Air 07/17/24 16:24 <ROSA Sherman Last Filed: 07/17/24 12:24> Vital Signs Temperature 97.6 F 07/17/24 12:12 Pulse Rate 99 07/17/24 12:12 Respiratory Rate 18 07/17/24 12:12 Blood Pressure 121/77 07/17/24 12:12 Pulse Oximetry 96 07/17/24 12:12 Temperature 97.6 F 07/17/24 12:12 Pulse Rate 96 07/17/24 18:23 Respiratory Rate 20 07/17/24 18:23 Blood Pressure 121/77 07/17/24 12:12 Pulse Oximetry 96 07/17/24 12:12 Oxygen Delivery Room Air 07/17/24 16:24 <ROSA Varela Last Filed: 07/17/24 19:22> MDM - SOB/Dyspnea MDM Narrative Medical decision making narrative: MSE by MAYCO in triage. <Gracy Nelson PA-C - Last Filed: 07/17/24 12:24> MSE by MAYCO in triage. Patient presents to the emergency department for asthma exacerbation. She is afebrile and nontoxic appearing. Vitals are stable. Oxygen saturation has remained normal on room air. She does have diffuse wheezing upon arrival. CBC with mild leukocytosis. Metabolic panel with some evidence of dehydration. Patient hydrated with a L of IV fluids in the ED. Influenza, RSV and COVID screens are negative. EKG without acute ST changes and her troponins are negative. Chest x-ray without acute cardiopulmonary abnormality. Patient updated on her workup she does have continued wheezing after nebulizer treatment, although lungs are more opened up. She does not wish to stay for any further evaluation or treatment. She will be continued on oral steroids. She is to follow up with her point of care technician. She was given warnings to return to the ER <Kinjal Lowery PA-C - Last Filed: 07/17/24 19:22> Differential Diagnosis Differential diagnosis: Likely community acquired pneumonia and asthma with exacerbation <Kinjal Lowery PA-C - Last Filed: 07/17/24 19:22> Lab Data Attestation: I reviewed the patient's lab results. <Kinjal Lowery PA-C - Last Filed: 07/17/24 19:22> Result diagrams: 07/17/24 12:24 07/17/24 12:24 <Gracy Nelson PA-C - Last Filed: 07/17/24 12:24> Labs: Lab Results 07/17/24 07/17/24 Range/Units 12:24 16:43 WBC 11.4 H (4.5-10.0) K/mm3 RBC 4.50 (4.2-5.4) M/mm3 Hgb 13.9 (12.0-15.0) g/dL Hct 41.3 (37.0-47.0) % MCV 91.8 (80-100) fl MCH 30.9 (26-34) pg MCHC 33.7 (32-36) g/dl RDW 12.3 (11.5-14.5) % Plt Count 332 (150-375) k/mm3 MPV 9.4 (7.4-10.4) fl Immature Gran % (Auto) 0.2 (0-0.5) % Neut % (Auto) 48.2 (45.5-73.1) % Lymph % (Auto) 25.4 (18.3-44.2) % [place] % (Auto) 5.9 (2.6-8.5) % Eos % (Auto) 19.1 H (0-4.4) % Baso % (Auto) 1.2 (0.2-1.2) % Lymph # (Auto) 2.90 (0.9-3.2) K/mm3 [place] # (Auto) 0.7 H (0.1-0.6) K/mm3 Eos # (Auto) 2.2 H (0-0.3) K/mm3 Baso # (Auto) 0.1 (0.0-0.1) K/mm3 Abs Immat Gran (auto) 0.02 (0.00-0.031) K/mm3 Absolute Neuts (auto) 5.5 (1.3-6.7) K/mm3 Absolute Nucleated RBC 0.000 (0.0-0.012) K/mm3 Nucleated RBC % 0.0 (0.0-0.2) % PT 12.6 (11.1-14.7) Seconds INR 0.9 APTT 25.7 (22.3-36.8) Seconds Sodium 139 (137-145) mmol/L Potassium 3.8 (3.4-5.0) mmol/L Chloride 106 (98-107) mmol/L Carbon Dioxide 20 L (22-30) mmol/L Anion Gap 13 H (4-12) mmol/L BUN 8 (7-17) mg/dL Creatinine 0.62 L (0.7-1.0) mg/dL Estim Creat Clear Calc 102 ml/min Estimated GFR > 60 (59 - ) Glucose 129 H (65-110) mg/dL Calcium 9.3 (8.4-10.2) mg/dL Total Bilirubin 0.7 (0.2-1.3) mg/dL AST 25 (14-36) U/L ALT 25 (6-35) U/L Alkaline Phosphatase 31 L (38-126) U/L Troponin I < 0.012 < 0.012 (0.000-0.034) ng/mL Total Protein 8.0 (6.3-8.2) g/dL Albumin 4.2 (3.5-5.1) g/dL Lipase 108 (23-300) U/L Influenza A (RT-PCR) Negative (Negative) Influenza B (RT-PCR) Negative (Negative) RSV (RT-PCR) Negative (Negative) SARS-CoV-2 RNA (RT-PCR) Negative (Negative) <Gracy Nelson PA-C - Last Filed: 07/17/24 12:24> Lab Results 07/17/24 07/17/24 Range/Units 12:24 16:43 WBC 11.4 H (4.5-10.0) K/mm3 RBC 4.50 (4.2-5.4) M/mm3 Hgb 13.9 (12.0-15.0) g/dL Hct 41.3 (37.0-47.0) % MCV 91.8 (80-100) fl MCH 30.9 (26-34) pg MCHC 33.7 (32-36) g/dl RDW 12.3 (11.5-14.5) % Plt Count 332 (150-375) k/mm3 MPV 9.4 (7.4-10.4) fl Immature Gran % (Auto) 0.2 (0-0.5) % Neut % (Auto) 48.2 (45.5-73.1) % Lymph % (Auto) 25.4 (18.3-44.2) % [place] % (Auto) 5.9 (2.6-8.5) % Eos % (Auto) 19.1 H (0-4.4) % Baso % (Auto) 1.2 (0.2-1.2) % Lymph # (Auto) 2.90 (0.9-3.2) K/mm3 [place] # (Auto) 0.7 H (0.1-0.6) K/mm3 Eos # (Auto) 2.2 H (0-0.3) K/mm3 Baso # (Auto) 0.1 (0.0-0.1) K/mm3 Abs Immat Gran (auto) 0.02 (0.00-0.031) K/mm3 Absolute Neuts (auto) 5.5 (1.3-6.7) K/mm3 Absolute Nucleated RBC 0.000 (0.0-0.012) K/mm3 Nucleated RBC % 0.0 (0.0-0.2) % PT 12.6 (11.1-14.7) Seconds INR 0.9 APTT 25.7 (22.3-36.8) Seconds Sodium 139 (137-145) mmol/L Potassium 3.8 (3.4-5.0) mmol/L Chloride 106 (98-107) mmol/L Carbon Dioxide 20 L (22-30) mmol/L Anion Gap 13 H (4-12) mmol/L BUN 8 (7-17) mg/dL Creatinine 0.62 L (0.7-1.0) mg/dL Estim Creat Clear Calc 102 ml/min Estimated GFR > 60 (59 - ) Glucose 129 H (65-110) mg/dL Calcium 9.3 (8.4-10.2) mg/dL Total Bilirubin 0.7 (0.2-1.3) mg/dL AST 25 (14-36) U/L ALT 25 (6-35) U/L Alkaline Phosphatase 31 L (38-126) U/L Troponin I < 0.012 < 0.012 (0.000-0.034) ng/mL Total Protein 8.0 (6.3-8.2) g/dL Albumin 4.2 (3.5-5.1) g/dL Lipase 108 (23-300) U/L Influenza A (RT-PCR) Negative (Negative) Influenza B (RT-PCR) Negative (Negative) RSV (RT-PCR) Negative (Negative) SARS-CoV-2 RNA (RT-PCR) Negative (Negative) <Kinjal Lowery PA-C - Last Filed: 07/17/24 19:22> Imaging Data Radiologist's impression: ITS Impressions Chest X-Ray 07/17/24 13:14 IMPRESSION: 1: NO ACUTE CARDIOPULMONARY DISEASE. <Kinjal Lowery PA-C - Last Filed: 07/17/24 19:22> ECG Data EKG #1: ECG completion date: 07/17/24 <ROSA Varela Last Filed: 07/17/24 19:22> EKG Interpretation: tachycardia, sinus rhythm, no ST changes and normal QT <ROSA Varela Last Filed: 07/17/24 19:22> Critical Care Time Critical Care Time Critical Care Time: No <ROSA Varela Last Filed: 07/17/24 19:22> Discharge Plan Discharge Clinical Impression: Asthma exacerbation Qualifiers: Asthma severity: unspecified severity Asthma persistence: persistent Qualified Code(s): J45.901 - Unspecified asthma with (acute) exacerbation <ROSA Sherman Last Filed: 07/17/24 12:24> Patient Disposition: Home, Self-Care <ROSA Sherman Last Filed: 07/17/24 12:24> Condition: Stable <ROSA Sherman Last Filed: 07/17/24 12:24> Instructions: Asthma (ED), Acute Bronchitis (ED) <ROSA Sherman Last Filed: 07/17/24 12:24> Additional Instructions: Return to the emergency department for worsening symptoms, or any other concerns Remain well-hydrated, get plenty of rest. Take Tylenol or Motrin [id number] for pain as needed. Flonase for nasal congestion. Zyrtec for runny nose. Lozenges or Chloraseptic spray for sore throat. Albuterol 2 puffs every 4-6 hours as needed for shortness of breath or wheezing. Continue oral steroid as prescribed Follow up with your point of care technician <ROSA Sherman Last Filed: 07/17/24 12:24> Patient Language: Bengali <ROSA Sherman Last Filed: 07/17/24 12:24> Prescriptions: New albuterol sulfate [Ventolin HFA] 90 mcg/actuation HFA aerosol inhaler 2 puff inhalation QID PRN (Reason: shortness of breath or wheezing) Qty: 8.5 0RF prednisone 20 mg tablet 60 mg PO DAILY 4 Days Qty: 12 0RF No Action norethindrone (contraceptive) 0.35 mg tablet 0.35 mg PO DAILY ibuprofen 800 mg tablet 800 mg PO TID PRN (Reason: pain) 7 Days Qty: 21 0RF acetaminophen 500 mg tablet 1,000 mg PO TID PRN (Reason: buck) 7 Days Qty: 42 0RF methocarbamol 750 mg tablet 1,500 mg PO TID Qty: 35 0RF albuterol sulfate 90 mcg/actuation HFA aerosol inhaler 2 puff inhalation QID PRN (Reason: shortness of breath or wheezing) Qty: 8.5 2RF fluticasone propionate 44 mcg/actuation HFA aerosol inhaler 1 inh inhalation BID Qty: 10.6 0RF Rx Instructions: Rinse mouth and spit after each use azithromycin [Zithromax Z-Woody] 250 mg tablet See Rx Instructions PO .COMPLEX Qty: 6 0RF Rx Instructions: For 250 mg dose pack: take 500 mg today (day 1), then 250 mg for 4 days (days 2-5) PO methylprednisolone [Medrol (Woody)] 4 mg tablets,dose pack See Rx Instructions PO PER PKG DIR Qty: 21 0RF Rx Instructions: PO PER PKG DIR <Gracy Nelson PA-C - Last Filed: 07/17/24 12:24> Follow-up/Referrals: Ricardo Robertson MD [Primary Care Provider] - <Gracy Nelson PA-C - Last Filed: 07/17/24 12:24>
[2024-07-17 12:34] LABS: Basophils Absolute Auto 0.1 K/mm3 (0.0-0.1); Basophils Percent Auto 1.2 % (0.2-1.2); Eosinophils Absolute Auto 2.2 K/mm3 (0-0.3); Eosinophils Percent Auto 19.1 % (0-4.4); Hematocrit 41.3 % (37.0-47.0); Hemoglobin 13.9 g/dL (12.0-15.0); Immature Granulocyte Absolute 0.02 K/mm3 (0.00-0.031); Immature Granulocyte Percent A 0.2 % (0-0.5); Lymphocytes Percent Auto 25.4 % (18.3-44.2); Mean Corpuscular HGB Conc 33.7 g/dl (32-36); Mean Corpuscular Hemoglobin 30.9 pg (26-34); Mean Corpuscular Volume 91.8 fl (80-100); Mean Platelet Volume 9.4 fl (7.4-10.4); Monocytes Absolute Auto 0.7 K/mm3 (0.1-0.6); Monocytes Percent Auto 5.9 % (2.6-8.5); Neutrophils Absolute Auto 5.5 K/mm3 (1.3-6.7); Neutrophils Percent Auto 48.2 % (45.5-73.1); Platelet Count Result 332 k/mm3 (150-375); Red Cell Distribution Width 12.3 % (11.5-14.5); White Blood Count 11.4 K/mm3 (4.5-10.0)
[2024-07-17 12:44] LABS: INR 0.9; Prothrombin Time 12.6 Seconds (11.1-14.7)
[2024-07-17 12:45] LABS: Partial Thromboplastin Time 25.7 Seconds (22.3-36.8)
[2024-07-17 12:55] LABS: Alanine Aminotransferase 25 U/L (6-35); Albumin Level 4.2 g/dL (3.5-5.1); Alkaline Phosphatase 31 U/L (38-126); Anion Gap 13 mmol/L (4-12); Aspartate Amino Transferase 25 U/L (14-36); Bilirubin,Total 0.7 mg/dL (0.2-1.3); Blood Urea Nitrogen 8 mg/dL (7-17); Calcium 9.3 mg/dL (8.4-10.2); Carbon Dioxide 20 mmol/L (22-30); Chloride 106 mmol/L (98-107); Estimated CRCL calculation 102 ml/min; Estimated Glomerular Filt Rate > 60; Glucose 129 mg/dL (65-110); Lipase 108 U/L (23-300); Potassium 3.8 mmol/L (3.4-5.0); Sodium 139 mmol/L (137-145)
[2024-07-17 13:03] LABS: Troponin I < 0.012 ng/mL (0.000-0.034)
[2024-07-17 13:10] LABS: Influenza A QL RT-PCR Negative (Negative); Influenza B QL RT-PCR Negative (Negative); RSV RNA, RT-PCR Negative (Negative); SARS-CoV-2 RNA PCR Negative (Negative)
--- OUTSIDE RECORDS SUMMARY | 2024-07-17 14:59 | XMS_ITS | Data Portability ---
Author Organization [facility] [place] Address [address] [place] [address] Care Team Providers Care Insurance Billing Clerk Name Role Phone GUADALUPE MCNEILL Primary Care Provider [phone] Assessment Encounter Date Assessment Date Assessment LastModified by Organization Details LastModified Time 03/16/2022 03/16/2022 Patient is ___weeks . Discussed plan. [email or web address] Not available 03/16/2022 10:51:00 04/17/2022 04/17/2022 Normal exam May resume normal activities contraceptive plan-- POP FU for WWE 3 mos [email or web address] Not available 04/18/2022 07:58:59 07/18/2022 07/18/2022 healthy female exam patient declines std testing pap done mammogram at 41 contraception-pt wants to continue POP. does not want to be unprotected or risk decreasing milk supply. did discuss other progesterone options. can try junel when weans. clobetasol refilled for planus FU 1 year or prn [email or web address] Not available 07/18/2022 11:05:20 04/20/2024 04/20/2024 Annual gynecological exam performed. Patient will come back in a year unless there are new symptoms. [email or web address] Not available 03/16/2024 12:11:29 Plan of Treatment Reminders Order Date Submit Date Provider Last Modified By Organization Details Last Modified Time Details Appointments None recorded. Lab None recorded. Referral None recorded. Procedures None recorded. Surgeries None recorded. Imaging None recorded. Medication Orders Junel Fe 24 1 mg-20 mcg (24)/75 mg (4) tablet 2023 024 [facility] #[id number], [address], [place], [id number], 4 17:03:52 clobetasol 0.05 % topical ointment [address] [facility] #[id number], [address], [place], [id number], 3 11:05:42 Celexa 20 mg tablet 2021 022 [facility] #99574, [address], [place], [id number], 3 10:27:38 Ortho Micronor 0.35 mg tablet [address] [facility] #07754, [address], [place], [id number], 2 17:42:22 Patient TargetsNo targets recorded. Patient InstructionsNo instructions recorded. Reason for Referral None Reported. Results Created Date Observation Date Name Description Value Unit Range Abnormal Flag Note LastModifiedBy Organization Detail LastModifiedTime 03/09/2003/09/2022 CULTU RE: GROUP B STREP SCREE N, REFLE X SUSCE PTIBI LITY result report SEE RESULT S BELOW Test: Cultu re: Group B Strep , Refle x Susce ptibi lity ([facility] ) Speci men Sourc e: Vagin a/Rec ana Speci men Type: Vagin al/Re ctal Speci men Date: 03/09 2:32 PM Resul t Date: 03/12 9:00 PM Resul t Statu s: Final resul t Abnor mal: No Resul ting Lab: [facility] [address] [facility] [address] Tel: CULTU RE ----- ----- ----- --- No Group B strep isola gauri at 2 days (arabella ctive broth enhan cemen t) Not Available [facility] [address], [place], [address], 03/12/2022 22:02:39 07/18/19 23 07/18/2022 IMAGE GUIDE D PAP AND HPV REGAR DLESS image guided Pap, HPV regardless of Pap result SEE RESULT S BELOW CASE REPOR T: Cytol ogy Gynec ologi sheng Repor t Case: [id number] Autho britt g Provi antonio: Ana Johnson MD Colle cted: 07/18 1549 Order ing Locat ion: [place] Patho log[facility] Recei yusef: 07/19 0852 First Jre n: Dalton Varela am, CT Speci men: Ernestina ahmadi Pap - Image d, Cervi x STATE MENT OF ADEQU ACY: Satis facto ry for evalu ation Trans forma tion zone compo nent prese nt FINAL DIAGN OSIS: Negat melyssa for Intra epith elial Christian delgado or Colby avery (NIL) . Elect rolly thomas balwinder d by Dalton Varela am, CT on 2022 at 7:46 AM ----- ----- ----- ----- ----- ----- ----- ----- ----- ----- ----- ----- ----- ----- ----- ----- ----- ---- HPV RESUL TS: HPV mRNA E6/E7 : No HPV mRNA Detec gauri NOTE: This high risk HPV mRNA assay detec ts fourt een high- risk HPV types (16, 18, 31, 33, 35, 39, 45, 51, 52, 56, 58, 59, 66, 68) witho ut diffe renti ation . COMME NT: Note: This speci men was revie wed by a Cytot echno logis t and/o r Patho logis t (as indic ated in this repor t) after evalu ation using the Thinp rep Imagi ng Syste m. CLINI SHENG INFOR MATIO N: Menst rual Statu s: LMP (if appli cable ): Clini sheng Histo ry/Pr eviou s Pap: Type of Neopl estuardo (if appli cable ): Signi fican t Clini sheng Findi ngs: Other Histo ry: Hormo meena (if appli cable ): PAP EDUCA ALEXX L NOTE: The Pap Test is a scree daiana test with an inher ent false negat melyssa rate. Liqui d-bas ed sampl ing may decre ase, but will not elimi ansley, false negat melyssa resul ts. A negat melyssa resul t does not precl ude the prese nce and/o r devel opmen t of disea se, since the prese nce of abnor mal cells in the sampl e depen ds on the locat ion of the lesio n and sampl ing techn ique. Nica nued regul ar scree daiana is the best metho d of cance r preve ntion . If repor gauri cytol ogic findi ng do not corre late with physi sheng and/o r histo rical findi ngs, furth er inves tigat ion is recom matthew d, as clini russel bauer nted. Not Available [facility] (Lab) [address] [facility], [place], [address], 07/23/2022 08:48:27 04/20/20 24 04/20/2024 IMAGE GUIDE D PAP AND HPV REGAR DLESS image guided Pap, HPV regardless of Pap result SEE RESULT S BELOW CASE REPOR T: Cytol ogy Gynec ologi sheng Repor t Case: [id number] Autho britt g Provi antonio: Mihai Sena MD Colle cted: 04/20 1625 Order ing Locat ion: [place] Patho [place] Recei yusef: 04/21 1127 First Scree n: Strstewart z, Willi am, CT Speci men: Scree daiana Pap - Image d, Cervi x STATE MENT OF ADEQU ACY: Satis facto ry for evalu ation Trans forma tion zone compo nent prese nt ----- ----- ----- ----- ----- ----- ----- ----- ----- ----- ----- ----- ----- ----- ----- ----- ----- ---- FINAL DIAGN OSIS: Negat melyssa for Intra epith elial Christian delgado or Colby avery (NIL) . Elect rolly britt d by Dalton Varela am, CT on 2023 at 11:03 AM ----- ----- ----- ----- ----- ----- ----- ----- ----- ----- ----- ----- ----- ----- ----- ----- ----- ---- HPV RESUL TS: HPV mRNA E6/E7 : No HPV mRNA Detec gauri NOTE: This high risk HPV mRNA assay detec ts fourt een high- risk HPV types (16, 18, 31, 33, 35, 39, 45, 51, 52, 56, 58, 59, 66, 68) witho ut diffe renti ation . COMME NT: This speci men was revie wed by a Cytot echno logis t and/o r Patho logis t (as indic ated in this repor t) after evalu ation using the Thinp rep Imagi ng Syste m. CLINI SHENG INFOR MATIO N: Menst rual Statu s: LMP (if appli cable ): Clini sheng Histo ry/Pr eviou s Pap: Type of Neopl estuardo (if appli cable ): Signi mary ellen t Clini sheng Findi ngs: Other Histo ry: Hormo meena (if appli cable ): PAP EDUCA ALEXX L NOTE: The Pap Test is a scree daiana test with an inher ent false negat melyssa rate. Liqui d-bas ed sampl ing may decre ase, but will not elimi ansley, false negat melyssa resul ts. A negat melyssa resul t does not precl ude the prese nce and/o r devel opmen t of disea se, since the prese nce of abnor mal cells in the sampl e depen ds on the locat ion of the lesio n and sampl ing techn ique. Nica nued regul ar scree daiana is the best metho d of cance r preve ntion . If repor gauri cytol ogic findi ng do not corre late with physi sheng and/o r histo rical findi ngs, furth er inves tigat ion is recom matthew d, as clini russel warra nted. Not Available [facility] (Lab) [address], [place], [address], 05/01/2024 12:08:09 04/20/20 24 04/20/2024 TRICH OMONA S VAGIN SHARITA (RRNA ) trichomonas vaginalis ribosomal RNA (rrna) Negati ve negati ve Not Available [facility] (Lab) [address], [place], [address], 05/01/2024 12:08:10 04/20/20 24 04/20/2024 CT/GC (ABDOUL) , THINP REP VIAL chlamydia trachomatis, PCR Negati ve negati ve Not Available [facility] (Lab) [address], [place], [address], 05/01/2024 12:08:10 04/20/20 24 04/20/2024 CT/GC (ABDOUL) , THINP REP VIAL neisseria gonorrhoeae, PCR Negati ve negati ve Not Available [facility] (Lab) [address], [place], [address], 05/01/2024 12:08:10 03/02/20 22 03/02/2022 US, obste tric, follo w-up No observ ation record ed. [email or web address], [place], [address], 03/02/2022 13:29:55 03/02/20 22 03/02/2022 US, obste tric, follo w-up No observ ation record ed. JC James [address], [place], [address], 03/05/2022 16:03:11 Result Notes None recorded. Problems Name Problem SNOMED Code Status Onset Date Resolution Date Notes Provider Name and Address Organization Details Recorded Time Pregnanc y 24437043 Completed 202106/28/2022 Violette gonzalez null, [facility] 3 15:01:05 Late entry into care 134217373 Completed 21w6d, did not find out until 19w, poor dating Violette gonzalez michael, [facility] 3 15:00:58 Advanced maternal age 090606405 Completed aware of risks, declines nipt Violette gonzalez [facility] 3 15:00:58 exposure to alcohol 325607648 Completed Violette gonzalez null, [facility] 3 15:00:58 SARS-CoV -2 Completed 2021 ASA & Serial growth Violette gonzalez [facility], [facility] 3 15:00:58 Chronic lichen planus 996402154 Active 2022 Ana Dennis MD [address], [place], [address], [facility] 3 11:04:13 Problem Notes None recorded. Procedures Surgical History Date Name Laterality Status Provider Name and Address Organization Details Recorded Time 07/18/19 23 Date of Last Pap Smear completed Angela Romeo [facility] 03/16/2024 12:12:38 05/27/19 05 tonsilectomy/martha noids completed Brittani Henriquez [facility] 04/17/2022 17:23:32 05/27/18 97 Appendectomy completed Brittani Henriquez [facility] 04/17/2022 17:23:23 05/27/18 94 procedure on eye completed Brittani Henriquez [facility] 04/17/2022 17:23:28 Imaging Results Imaging Date Name Status LastModified by Organiz ation Details LastModified Time 03/02/2022 US, obstetric, follow-up completed [email or web address] [facility] [address], [place], [address], 03/02/2022 13:29:55 03/02/2022 US, obstetric, follow-up completed JC James [address], [place], [address], 03/05/2022 16:03:11 Procedure Notes None recorded. Medical Equipment None Reported. Allergies No known drug allergies Medications Name Sig Start Date Stop Date Status Note LastModified by Organization Details LastModified Time amoxicillin 500 mg capsule TAKE 1 CAPSULE BY MOUTH THREE TIMES DAILY FOR 10 DAYS 03/16 completed Not Available Not Available Not Available doxycycline hyclate 100 mg capsule TAKE 1 CAPSULE BY MOUTH TWICE DAILY FOR 10 DAYS 03/16 completed Not Available Not Available Not Available Lidocaine Viscous 2 % mucosal solution 04/17 completed Not Available Not Available Not Available prednisone 20 mg tablet TAKE 1 TABLET BY MOUTH DAILY FOR 7 DAYS 03/16 completed Not Available Not Available Not Available citalopram 20 mg tablet TAKE 1 TABLET BY MOUTH EVERY DAY 07/18 completed Not Available Not Available Not Available clobetasol 0.05 % topical ointment APPLY THIN LAYER TOPICALLY TO THE AFFECTED AREA TWICE DAILY active Not Available Not Available No t Available albuterol sulfate HFA 90 mcg/actuati on aerosol inhaler INHALE 2 PUFFS BY MOUTH EVERY 4 HOURS NEEDED FOR SHORTNESS OF BREATH OR WHEEZING active Not Available Not Available No t Available norethindro ne (contracept melyssa) 0.35 mg tablet TAKE 1 TABLET BY MOUTH EVERY DAY active Not Available Not Available No t Available amoxicillin 875 mg-potfredricku m clavulanate 125 mg tablet TAKE 1 TABLET BY MOUTH TWICE DAILY FOR 7 DAYS 03/16 completed Not Available Not Available Not Available nitrofurant oin monohydrate /macrocryst als 100 mg capsule TAKE 1 CAPSULE BY MOUTH EVERY 12 HOURS FOR 5 DAYS 02/16 completed Not Available Not Available Not Available 03/16 completed Not Available Not Available Not Available 1 mg-20 mcg (24)/75 mg (4) tablet Take 1 tablet by oral route. 2023 active Not Available Not Available Not Avai lable Vitals Date Recorded Body height Body mass index (BMI) Body weight Systolic blood pressure Diastolic blood pressure Provider Name and Address Organization Details Last Updated DateTime 03/09/2022 165.1 cm 29.1 kg/m2 25386.66 475 g 115 mm[Hg] 81 mm[Hg] [facility] 10:45:55 Date Recorded Body height Body mass index (BMI) Body weight Systolic blood pressure Diastolic blood pressure Provider Name and Address Organization Details Last Updated DateTime 03/16/2022 165.1 cm 29.6 kg/m2 16043.44 186 g 118 mm[Hg] 81 mm[Hg] [facility] 10:51:36 Date Recorded Body height Body mass index (BMI) Systolic blood pressure Diastolic blood pressure Provider Name and Address Organization Details Last Updated DateTime 04/17/2022 165.1 cm 26.6 kg/m2 114 mm[Hg] 76 mm[Hg] Brittani Henriquez [facility] 04/17/2022 17:19:06 Date Recorded Body weight Provider Name an d Address Organization Details Last Updated DateTime 04/17/2022 32225.7792 g Violette Clark [facility] 06/28/2022 15:01:03 Date Recorded Body height Body mass index (BMI) Body weight Systolic blood pressure Diastolic blood pressure Provider Name and Address Organization Details Last Updated DateTime 07/18/2022 165.1 cm 25.5 kg/m2 25880.63 g 112 mm[Hg] 80 mm[Hg] [facility] 3 10:27:34 Date Recorded Body height Body mass index (BMI) Body weight Systolic blood pressure Diastolic blood pressure Provider Name and Address Organization Details Last Updated DateTime 04/20/2024 165.1 cm 27.3 kg/m2 05465.15 g 116 mm[Hg] 80 mm[Hg] Batool Davenporten [facility] 4 16:37:17 Social History Question Answer Notes LastModified by Organizat ion Details LastModified Time Tobacco Smoking Status Never Smoker Brittani [email or web address], [facility] 04/17/2022 17:19:43 What Is Your Level Of Alcohol Consumption? None [email or web address] Information not available 04/17/2022 Are You Blind Or Do You Have Difficulty Seeing? No [email or web address] Information n ot available 04/17/2022 How Much Tobacco Do You Chew? None [email or web address] Information not available 04/17/2022 In The 14 Days Before Symptom Onset, Have You Had Close Contact With A Laboratory-confirm ed COVID-19 While That Case Was Ill? No [email or web address] Information n ot available 04/17/2022 In The 14 Days Before Symptom Onset, Have You Had Close Contact With A Person Who Is Under Investigation For COVID-19 While That Person Was Ill? No Information not available 04/17/2022 Have You Been To An Area Known To Be High Risk For COVID-19? No [email or web address] Information not available 04/17/2022 Are You Deaf Or Do You Have Serious Difficulty Hearing? No [email or web address] Information not available 04/17/2022 What Is The Highest Grade Or Level Of School You Have Completed Or The Highest Degree You Have Received? 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 Yes [email or web address] Information not available 04/17/2022 Do You Use Your Seat Belt Or Car Seat Routinely? Yes [email or web address] Information not available 04/17/2022 Do You Have Smoke And Carbon Monoxide Detectors In Your Home? Yes Information not available 04/17/2022 How Much Tobacco Do You Smoke? No [email or web address] Information not available 04/17/2022 Do You Feel Stressed (tense, Restless, Nervous, Or Anxious, Or Unable To Sleep At Night)? [id number] [email or web address] Information not available 04/17/2022 Do You Use Any Illicit Or Recreational Drugs? No [email or web address] Information not available 11/17/2021 Do You Use Sunscreen Routinely? Yes [email or web address] Information not available 04/17/2022 Has Tobacco Cessation Counseling Been Provided? No [email or web address] Information not available 04/17/2022 Have You Used IV Drugs? No [email or web address] Information not available 04/17/2022 Do You Or Have You Ever Used Any Other Forms Of Tobacco Or Nicotine? No [email or web address] Information not available 04/17/2022 Sex: Unknown Functional Status Question Answer Note LastModified by Organizat ion Details LastModified Time Do you have difficulty walking or climbing stairs? No [email or web address] Information not available 04/17/2022 Are you able to walk? YESWOREST [email or web address] Information not available 04/17/2022 Are you able to care for yourself? Yes [email or web address] Information not available 04/17/2022 Do you have difficulty dressing or bathing? No Information not available 04/17/2022 Mental Status None recorded. Family History Relationship Description Onset Age of this Age Resolved Age Notes LastModified by Organization Details LastModified Time Maternal Grandfather Carcinoma of colon [email or web address] Not available 2021 11:09:55 Maternal Grandfather Carcinoma in situ of lung [email or web address] Not available 11:11:12 Maternal Grandmother Carcinoma in situ of lung [email or web address] Not available 11:11:12 Medical History Condition Response Allergies (Food, seasonal, environmental ) N Other N Drug/Latex Allergies/Reactions N Blood Transfusion N Breast Cancer N Dermatologic Disorders N Lung Disease N Defects or Inherited Disease N Breast Problem N Gestational Diabetes N Hematologic disorders N Anesthesia Complications N History of STI N Deep Vein Thrombosis N Polycystic ovary syndrome N Anxiety Disorder N Autoimmune disease N Arthritis N Polyps N Infertility N Acid Reflux (GERD) N History of abnormal pap N Cancer N Varicosities N Stroke N Neurologic/Epilepsy N Endometriosis N High Cholesterol N Fibromyalgia N Headaches N Kidney Disease N Heart Problems N Thyroid Problems N Kidney or Bladder Problems N GI Problems N Eating Disorder N Anemia N Art (IVF or FET) N Psychiatric Illness N Ovarian Cancer N Diabetes N Pulmonary (TB, Asthma) N Hepatitis/Liver Disease N No Past Medical History N Eczema N Urinary Tract Infection N Abuse/Domestic Violence N Asthma N Trauma/Violence N Depression/ depression N Heart Disease N Pre-Eclampsia N Hypertension N Osteoporosis N Thrombophilias N Gynecological History Statement/Question Response Date of LMP 01/21/2024 N On BCP's at Conception? Y STIs/STDs N HPV Vaccine N Current Control Method BCPs Age at First Child 24 Sexually Active? Y Age of first menstrual cycle 14 Date of Last Pap Smear 07/18/2022 Sexual Problems? N LMP Approximate N Obstetrics History GPAL:G 5 P 3 0 2 3 Type Value Full Term 3 Spontaneous 2 Living 3 Total 5 Past Encounters Encounter ID Performer Location Encounter Start Date Encounter Closed Date Diagnosis/Indication Diagnosis SNOMED-CT Code Diagnosis ICD10 Code Diagnosis Note [id number] Ana Dennis MD [facility] [address],[place] [address] 11/17/2021 10:46:42 11/17/2021 11:47:53 Routine care 724926952 Z34.91 Advanced m aternal age 460288180 O09.522 Late entry into care 380315117 O09.32 [id number] [facility] [address],[place] [address] 11/21/2021 11:42:05 11/21/2021 13:10:22 screening for malformation 816523607 Z36.3 [id number] Ana Dennis MD [facility] [address],[place] [address] 12/11/2021 11:30:46 12/11/2021 13:03:54 Routine care 291026562 Z34.91 [id number] Ana Dennis MD [facility] [address],[place] [address] 01/01/2022 10:38:27 01/01/2022 11:05:34 Routine care 926661601 Z34.91 [id number] Ana Dennis MD [facility] [address],[place] [address] 01/15/2022 10:40:08 01/15/2022 10:57:52 Advanced maternal age 972699666 O09.522 Late entry into care 811957341 O09.32 [id number] Silvana Buchanan [facility] [address],[place] [address] 02/01/2022 12:25:14 02/01/2022 14:25:56 COVID-19 576084843 U07.1 [id number] Ana Dennis MD [facility] [address],[place] [address] 02/02/2022 12:41:56 02/02/2022 13:16:09 Advanced maternal age 447205197 O09.522 [id number] Ana Dennis MD [facility] [address],[place] [address] 02/16/2022 11:27:19 02/16/2022 14:34:39 Advanced maternal age 347365126 O09.522 Late entry into care 427179659 O09.32 [id number] Ana Dennis MD [facility] [address],[place] [address] 03/02/2022 11:08:32 03/02/2022 12:10:34 Advanced maternal age 273461027 O09.522 Routine an tenatal care 564583611 Z34.91 [id number] Anjali Livingston [facility] [address],[place] [address] 03/02/2022 11:09:04 03/02/2022 11:49:35 Pre-existing maternal disease complicating 9078579998 6106 O99.891 U07.1 O09.523 O09.33 Z3A.36 [id number] Ana Dennis MD [facility] [address],[place] [address] 03/09/2022 10:30:29 03/09/2022 11:18:08 Routine care 634073282 Z34.91 [id number] Ana Dennis MD [facility] [address],[place] [address] 03/16/2022 10:40:35 03/20/2022 15:20:16 Advanced maternal age 228002790 O09.522 Late entry into care 338588081 O09.32 [id number] Ana Dennis MD [facility] [address],[place] [address] 04/17/2022 17:00:48 04/18/2022 13:11:57 care 692308744 Z39.2 depression 59 998979 F53.0 Initial pr escription of oral contraception 778196823 Z30.011 [id number] Ana Dennis MD [facility] [address],[place] [address] 07/18/2022 10:15:21 07/18/2022 11:08:36 Chronic lichen planus 417367461 L43.8 Gynecologi c examination 25141246 Z01.419 [id number] GIULIA LINDSEY MD [facility] [address],[place] [address] 04/20/2024 16:29:45 04/20/2024 17:07:52 Gynecologic examination 70516540 Z01.419 Well woman care- Cervical cancer screening: Pap smear obtained today, will follow up on the results with the patient as they become available- Breast cancer screening: mammogram not indicated- Colon cancer screening: does not qualify- HPV immunizati on: has not received- STD testing: ordered on pap- hereditary cancer screening: does not qualify for testing Health Concerns Section Related Observation LastModified by Organization Detai ls LastModified Time None Recorded Concern Status LastModified by Organization Details LastModified Time None Recorded Advance Directives Directive None Recorded Payers Encounter Date Sequence Insurance Name Policy Number Policy Preston Covered Member ID Preston Member ID Guarantor Name 03/09/2022 1 [place] [id number] Trae Harden [id number] Harpreet Harden 03/16/2022 1 [place] [id number] Trae Harden [id number] Harpreet Harden 04/17/2022 1 [place] [id number] Trae Harden [id number] Harpreet Harden 07/18/2022 1 *SELF PAY* Clover Harden 04/20/2024 1 [place] Harpreet Harden [id number] Harpreet Harden Notes Date Note Type Note Provider Name and Address Organization Details Recorded Time 04/17/2022 text/html Patient is a 36yo presenting for a 4 week visit. She had a on 03/17 at 40w weeks GA. Baby Yvon was 7-5. Doing well overall. . Normal lochia. Pain- minimal. Bowel and bladder function normal. Back to work since 11 days. 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 Lawrence score 4. Started celexa 10 days ago and feeling better already, coping better. Period-no Annual due: now, pap last 2018 Concerns: none Ana Dennis MD [address], [place], [address], [facility] 04/18/2022 07:59:17 07/18/2022 text/html Patient is a 36y o who presents for an annual exam. Yvon. Stopped celexa 3w ago, mood fine. Lichen planus flaring, thinks from POP. Previously flared from OCPs, did do ok on . Recently lost her insurance, trying to get state aid. last pap-2018, had abnormal 2012 sexually active-y contraception-pop seatbelts-y exercise-y depression-denies domestic violence-denies tobacco-n concerns- Ana Dennis MD [address], [place], [address], [facility] 07/18/2022 11:06:01 04/20/2024 text/html Presents today f or her annual well-woman exam. Denies abnormal vaginal discharge. She is sexually active and denies dyspareunia. She is using OCPs for contraception, and she states that she is satisfied with this method. She has not noticed any changes or masses in her breasts. Regular periods with OCPs. Reports intermittent abdominal bloating, usually mid cycle for 4 days. Also reports 20lb weight gain. Started after switching control brands. Would like to restart Junel. GIULIA LINDSEY MD [address], [place], [address], [facility] 04/20/2024 17:07:05 OBGyn Episode Ob Episode Information Episode Created Date Number of Fetuses Patient Bloodtype Patient rh Status Prepregnancy Weight lbs Domestic Partner Domestic Partner Phone Father Name Manager Of Case Status 11/18/19 22 1 B Positive CLOSED Fetus Data First Name Last Name Admitted to NICU Weight (g) Sex Living Outcome Pediatric Complications Fetus ID Race Codes Race Delivery Type Yvon 3316.89 15 M true Full Term [id number] Vaginal Delivery Problems Problem Notes Dennis ptDeclines COVID vacc johnathan Problem Name Start Date End Date Resolution Snomed Code Not e Late entry into care [id number], did not find out until 19w, poor dating Advanced maternal age [id number] aware of risks, declines nipt exposure to alcohol [id number] SARS-CoV-2 01/21/2022 [id number] ASA & Se rial growth Abigail Calculation Initial Abigail Date Initial Exam Date Initial Exam Provider Initial Ultrasound Date Last Menstrual Period Date Ultra Sound Weeks Gestation 03/24/2022 11/17/2021 11/21/2021 22 Eighteen To Twenty Week Abigail Update Ultra Sound Date Fundal Height At Umbil Quickening Date Ultra Sound Latest Weeks Gestation Final Abigail Confirmed By Final Abigail Confirmed Date Final Abigail Date Ultra Sound Latest Days Gestation 0 [id number] 01/01/2022 03/24/20 22 0 Pre- Flowsheet Flowsheet Date 11/17/2021 Sher Score Blood Edema Fundus Height Fundus Units Glucose Ketones Leukocytes Nitrite Labor Signs Protein Cervic Dilation Cervic Effacement Cervic Station neg none none trace Type Weight in lbs Pre/Post Dialysis Refused Weight 162.827718585138 BP Diastolic BP Location Tested BP Systolic BP Type 76 112 Fetus Heart Rate Present A 160 Fetus Movement A Yes Comments Harpreet is a 35yo at 21.6 for care. She did not know she was until she started feeling FM at 19w. Had an US at that gave ABIGAIL of 03/24/22. Her history is significant for two term SVDs without complications. Before she found out she was , she was drinking alcohol once or twice per month. She declines COVID vaccines. Will schedule anatomy US aletha. She declines NIPT. PNL today. Flowsheet Date 11/21/2021 Sher Score Blood Edema Fundus Height Fundus Units Glucose Ketones Leukocytes Nitrite Labor Signs Protein Cervic Dilation Cervic Effacement Cervic Station Type Weight in lbs Pre/Post Dialysis Refused BP Diastolic BP Location Tested BP Systolic BP Type Fetus Heart Rate Present Fetus Movement Comments Flowsheet Date 12/11/2021 Sher Score Blood Edema Fundus Height Fundus Units Glucose Ketones Leukocytes Nitrite Labor Signs Protein Cervic Dilation Cervic Effacement Cervic Station neg trace 27 none trace Type Weight in lbs Pre/Post Dialysis Refused Weight 167.249829662151 BP Diastolic BP Location Tested BP Systolic BP Type 78 114 Fetus Heart Rate Present A 155 Fetus Movement A Yes Comments Doing well. Anatomy was comp lete and wnl after last appt. GCT next, discussed. Discuss Tdap next visit. Flowsheet Date 01/01/2022 Sher Score Blood Edema Fundus Height Fundus Units Glucose Ketones Leukocytes Nitrite Labor Signs Protein Cervic Dilation Cervic Effacement Cervic Station neg trace 30 trace Type Weight in lbs Pre/Post Dialysis Refused Weight 173.309559889435 BP Diastolic BP Location Tested BP Systolic BP Type 71 107 Fetus Heart Rate Present A 150 Fetus Movement A Yes Comments Doing well. Great FM> GCT to day. Discussed and encouraged Tdap.. Flowsheet Date 01/15/2022 Sher Score Blood Edema Fundus Height Fundus Units Glucose Ketones Leukocytes Nitrite Labor Signs Protein Cervic Dilation Cervic Effacement Cervic Station neg none 32 Type Weight in lbs Pre/Post Dialysis Refused Weight 174.24326691250 BP Diastolic BP Location Tested BP Systolic BP Type 73 109 Fetus Heart Rate Present A 150 Fetus Movement A Yes Comments Doing well. Did have ctx q 3 -8 for 90 min on Sat night after busy day, but resolved with rest and hydration, precautions given. GCT wnl. Will do Tdap. Flowsheet Date 02/01/2022 Sher Score Blood Edema Fundus Height Fundus Units Glucose Ketones Leukocytes Nitrite Labor Signs Protein Cervic Dilation Cervic Effacement Cervic Station Type Weight in lbs Pre/Post Dialysis Refused BP Diastolic BP Location Tested BP Systolic BP Type Fetus Heart Rate Present Fetus Movement Comments Flowsheet Date 02/02/2022 Sher Score Blood Edema Fundus Height Fundus Units Glucose Ketones Leukocytes Nitrite Labor Signs Protein Cervic Dilation Cervic Effacement Cervic Station neg none 32 none trace Type Weight in lbs Pre/Post Dialysis Refused Weight 173.876787381683 BP Diastolic BP Location Tested BP Systolic BP Type 77 115 Fetus Heart Rate Present A 160 Fetus Movement A Yes Comments Doing fine except has to mov e out of house, can't afford rent anymore. Will do tdap. No ob concerns. Flowsheet Date 02/16/2022 Sher Score Blood Edema Fundus Height Fundus Units Glucose Ketones Leukocytes Nitrite Labor Signs Protein Cervic Dilation Cervic Effacement Cervic Station neg none 34 none trace Type Weight in lbs Pre/Post Dialysis Refused Weight 175.396822707875 BP Diastolic BP Location Tested BP Systolic BP Type 72 104 Fetus Heart Rate Present A 155 Fetus Movement A Yes Comments Tdap done. GBS next, discuss ed. Very stressed with moving, finances. No ob concerns. support given. Flowsheet Date 03/02/2022 Sher Score Blood Edema Fundus Height Fundus Units Glucose Ketones Leukocytes Nitrite Labor Signs Protein Cervic Dilation Cervic Effacement Cervic Station Type Weight in lbs Pre/Post Dialysis Refused BP Diastolic BP Location Tested BP Systolic BP Type Fetus Heart Rate Present Fetus Movement Comments Flowsheet Date 03/02/2022 Sher Score Blood Edema Fundus Height Fundus Units Glucose Ketones Leukocytes Nitrite Labor Signs Protein Cervic Dilation Cervic Effacement Cervic Station neg trace none trace 3cm 50% -2 Type Weight in lbs Pre/Post Dialysis Refused Weight 173.130786921517 BP Diastolic BP Location Tested BP Systolic BP Type 77 110 Fetus Heart Rate Present A 145 Fetus Movement A Yes Comments Doing ok, uncomfortable. US 37%. GBS done. Labor precautions. Wants to await spontaneous labor. Flowsheet Date 03/09/2022 Sher Score Blood Edema Fundus Height Fundus Units Glucose Ketones Leukocytes Nitrite Labor Signs Protein Cervic Dilation Cervic Effacement Cervic Station neg trace 34 none trace 5cm 60% -3 Type Weight in lbs Pre/Post Dialysis Refused Weight 175.469106693237 BP Diastolic BP Location Tested BP Systolic BP Type 81 115 Fetus Heart Rate Present A 145 Fetus Movement A No Comments Doing ok, uncomfortable. now want 39w IOL, will schedule. GBS redone, was lost. Precautions given. Flowsheet Date 03/16/2022 Sher Score Blood Edema Fundus Height Fundus Units Glucose Ketones Leukocytes Nitrite Labor Signs Protein Cervic Dilation Cervic Effacement Cervic Station neg trace 35 trace trace 5cm 60% -2 Type Weight in lbs Pre/Post Dialysis Refused Weight 178.608107907238 BP Diastolic BP Location Tested BP Systolic BP Type 81 118 Fetus Heart Rate Present A 140 Fetus Movement A Yes Comments DOing fine. IOL tomorrow. GB S neg. Precautions given. Flowsheet Date 04/17/2022 Sher Score Blood Edema Fundus Height Fundus Units Glucose Ketones Leukocytes Nitrite Labor Signs Protein Cervic Dilation Cervic Effacement Cervic Station Type Weight in lbs Pre/Post Dialysis Refused Weight 160.420898472579 BP Diastolic BP Location Tested BP Systolic BP Type 76 114 Fetus Heart Rate Present Fetus Movement Comments Menstrual History Last Menstrual Date Menses Monthly On Bcp Conception Prior Menses Frequency Hcg Plus Date Menarche Onset Age Genetic Screening And Infection History Question Response Note Mental Retardation/Autism false Patient's Age Will Be 35 Yea rs Or Older At Estimated Date of Delivery true Thalassemia (Kiswahili, British, Mediterranean, Or Background): MCV < 80 false Neural Tube Defect (Meningom yelocele, Spina Bifida, Or Anencephaly) false Congenital Heart Defect false Down Syndrome false Kam-Sachs (eg, Adventist, Cajun, Frisian-Salem) f alse Arabella Disease false Sickle Cell Disease Or Trait () false Hemophilia Or Other Blood Disorders false Muscular Dystrophy false Cystic Fibrosis false Page's Chorea false Intellectual Disability/Autism false If Yes, Was Person Tested For Fragile X? false Other Inherited Genetic Or Chromosomal Disorder false Maternal Metabolic Disorder (eg, Type 1 Diabetes, PKU) false Patient Or Baby's Father Had A Child With Defects Not Listed Above false Recurrent Loss, Or A Stillbirth false Medications (including Suppl ements, Vitamins, Herbs, OTC Drugs), Illicit/Recreational Drugs, Alcohol true until found out at 19w preg If Yes, Agent(s) And Strength/Dosage false Any Other Genetic History false Live With Someone With TB Or Exposed To TB false Patient Or Partner Has History Of Genital Herpes false Rash Or Viral Illness Since Last Menstrual Period false History Of STD, Gonorrhea, C hlamydia, HPV, Syphilis false Other Infection History false History of HIV false History of Hepatitis false Prior GBS-infected child false Hemoglobinopathy Or Carrier false Other Structural Defect false Recent Travel History Outside of Country false Delivery Information Delivery Date Delivery Type Labor Anesthesia Weeks Gestation Incision Type Labor Labor Length Hrs Delivered By Post Complications Tubal Sterilization Discharge Date Comments 2 Induce d Regional-Ep idural 39 false Ana Dennis MD AMA & late entry into care Discharge Information Feeding Method Contraceptive Method Maternal HG B and HCT Levels Breast Ob Episode Information Episode Created Date Number of Fetuses Patient Bloodtype Patient rh Status Prepregnancy Weight lbs Domestic Partner Domestic Partner Phone Father Name Manager Of Case Status 11/18/19 22 1 CLOSED Fetus Data First Name Last Name Admitted to NICU Weight (g) Sex Living Outcome Pediatric Complications Fetus ID Race Codes Race Delivery Type 3259.96 5704 M Full Term [id number] Vaginal Delivery Abigail Calculation Initial Abigail Date Initial Exam Date Initial Exam Provider Initial Ultrasound Date Last Menstrual Period Date Ultra Sound Weeks Gestation 0 Eighteen To Twenty Week Abigail Update Ultra Sound Date Fundal Height At Umbil Quickening Date Ultra Sound Latest Weeks Gestation Final Abigail Confirmed By Final Abigail Confirmed Date Final Abigail Date Ultra Sound Latest Days Gestation 0 0 Menstrual History Last Menstrual Date Menses Monthly On Bcp Conception Prior Menses Frequency Hcg Plus Date Menarche Onset Age Delivery Information Delivery Date Delivery Type Labor Anesthesia Weeks Gestation Incision Type Labor Labor Length Hrs Delivered By Post Complications Tubal Sterilization Discharge Date Comments 0 40 Discharge Information Feeding Method Contraceptive Method Maternal HG B and HCT Levels Ob Episode Information Episode Created Date Number of Fetuses Patient Bloodtype Patient rh Status Prepregnancy Weight lbs Domestic Partner Domestic Partner Phone Father Name Manager Of Case Status 11/18/19 22 1 CLOSED Fetus Data First Name Last Name Admitted to NICU Weight (g) Sex Living Outcome Pediatric Complications Fetus ID Race Codes Race Delivery Type 3401.94 M Full Term [id number] Vaginal Delivery Abigail Calculation Initial Abigail Date Initial Exam Date Initial Exam Provider Initial Ultrasound Date Last Menstrual Period Date Ultra Sound Weeks Gestation 0 Eighteen To Twenty Week Abigail Update Ultra Sound Date Fundal Height At Umbil Quickening Date Ultra Sound Latest Weeks Gestation Final Abigail Confirmed By Final Abigail Confirmed Date Final Abigail Date Ultra Sound Latest Days Gestation 0 0 Menstrual History Last Menstrual Date Menses Monthly On Bcp Conception Prior Menses Frequency Hcg Plus Date Menarche Onset Age Delivery Information Delivery Date Delivery Type Labor Anesthesia Weeks Gestation Incision Type Labor Labor Length Hrs Delivered By Post Complications Tubal Sterilization Discharge Date Comments 4 39 Discharge Information Feeding Method Contraceptive Method Maternal HG B and HCT Levels Ob Episode Information Episode Created Date Number of Fetuses Patient Bloodtype Patient rh Status Prepregnancy Weight lbs Domestic Partner Domestic Partner Phone Father Name Manager Of Case Status 11/18/19 22 1 CLOSED Fetus Data First Name Last Name Admitted to NICU Weight (g) Sex Living Outcome Pediatric Complications Fetus ID Race Codes Race Delivery Type , [place] [id number] Abigail Calculation Initial Abigail Date Initial Exam Date Initial Exam Provider Initial Ultrasound Date Last Menstrual Period Date Ultra Sound Weeks Gestation 0 Eighteen To Twenty Week Abigail Update Ultra Sound Date Fundal Height At Umbil Quickening Date Ultra Sound Latest Weeks Gestation Final Abigail Confirmed By Final Abigail Confirmed Date Final Abigail Date Ultra Sound Latest Days Gestation 0 0 Menstrual History Last Menstrual Date Menses Monthly On Bcp Conception Prior Menses Frequency Hcg Plus Date Menarche Onset Age Delivery Information Delivery Date Delivery Type Labor Anesthesia Weeks Gestation Incision Type Labor Labor Length Hrs Delivered By Post Complications Tubal Sterilization Discharge Date Comments 4 Discharge Information Feeding Method Contraceptive Method Maternal HG B and HCT Levels Ob Episode Information Episode Created Date Number of Fetuses Patient Bloodtype Patient rh Status Prepregnancy Weight lbs Domestic Partner Domestic Partner Phone Father Name Manager Of Case Status 11/18/19 22 1 CLOSED Fetus Data First Name Last Name Admitted to NICU Weight (g) Sex Living Outcome Pediatric Complications Fetus ID Race Codes Race Delivery Type , [place] [id number] Abigail Calculation Initial Abigail Date Initial Exam Date Initial Exam Provider Initial Ultrasound Date Last Menstrual Period Date Ultra Sound Weeks Gestation 0 Eighteen To Twenty Week Abigail Update Ultra Sound Date Fundal Height At Umbil Quickening Date Ultra Sound Latest Weeks Gestation Final Abigail Confirmed By Final Abigail Confirmed Date Final Abigail Date Ultra Sound Latest Days Gestation 0 0 Menstrual History Last Menstrual Date Menses Monthly On Bcp Conception Prior Menses Frequency Hcg Plus Date Menarche Onset Age Delivery Information Delivery Date Delivery Type Labor Anesthesia Weeks Gestation Incision Type Labor Labor Length Hrs Delivered By Post Complications Tubal Sterilization Discharge Date Comments 2 Discharge Information Feeding Method Contraceptive Method Maternal HG B and HCT Levels
--- OUTSIDE RECORDS SUMMARY | 2024-07-17 14:59 | XMS_ITS | Continuity of Care Document ---
Author Organization [facility] Address [address] [place] [address] Phone Care Team Providers Care Industrial Hygiene Manager Name Role Phone Kat Young Unavailable Unavailable Advance Directives Directive Yes / No Effective Date File Name No Information Encounters Encounter Description Practice Location Reason(s) For Visit Diagnoses Date Provider Providers Copied on Encounter [facility], [address], [place], [place], [id number], [place] tel:[phone] [facility] No Information 0 2-200 1 Hannah Stephens. [address] [facility] [address] , [address], [place], [address], [place]. tel:[phone] Family History Family Member Type Diagnosis Age At Onset No Information Payers Payer name Insurance type Covered green party ID Authoriza tion(s) Medicaid [facility] [id number] Social History Type Description Quantity Date Captured [...]
[2024-07-17 17:23] LABS: Troponin I < 0.012 ng/mL (0.000-0.034)
[2024-07-17 18:00] VITALS: PULSE 96; RESP 20
[2024-07-17] MEDS: IPRATROPIUM 0.5 MG/ALBUTEROL SULFATE 2.5 MG AMPUL.NEB 3 ML INHALATION (18:00)
[2024-07-17] MEDS: SODIUM CHLORIDE 0.9% IV 1,000 ML 999 ML IV CONT (18:15)
[2024-07-17] MEDS: MAGNESIUM SULF 1 GM/D5W 100 ML 1 GM/100 ML BAG IVPB (18:16)
[2024-07-17] MEDS: methylPREDNISolone SOD SUCC 125 MG VIAL IV PUSH (18:17)
[2024-07-17 18:23] VITALS: PULSE 96; RESP 20
--- NOTE | 2024-07-17 19:08 | PC.NURSE ---
Report received from JAYDON Clark. Assumed care of patient at this time.
--- NOTE | 2024-07-17 19:15 | PC.NURSE ---
Patient states she is ready go to home, wishes to speak with PA. PA notified.
[2024-07-17 19:34] VITALS: BP 128/80; PULSE 96; RESP 20; O2SAT 95
== END 2024-07-17 19:36 | disposition home or self-care (01) ==
PROVIDERS: Emergency Medicine; Physician Assistant; Emergency Provider Physician Assistant; PCP Family Medicine
DX: J45.901 Unspecified asthma with (acute) exacerbation (principal); Z20.822 Contact with and (suspected) exposure to COVID-19; F17.290 Nicotine dependence, other tobacco product, uncomplicated; Z86.16 Personal history of COVID-19; R00.0 Tachycardia, unspecified; R94.31 Abnormal electrocardiogram [ECG] [EKG]
CPT/HCPCS: 36415; 71046; 80053; 83690; 84484; 85025; 85610; 85730; 87637; 93005; 94640; 96361; 96374; 99284; J2919; J3475; J7030

== ENCOUNTER 2024-08-27 19:21 | Emergency (ER) | payer MEDICAID, SELFPAY ==
--- NOTE | ~2024-08-27 | XR_ITS ---
EXAM: XR foot LT min 3V DATE: 08/27/2024 19:40 HISTORY: pain to distal 1-3 metacarp. No injury . COMPARISON: 05/12/2006. FINDINGS: Normal mineralization. No fracture or dislocation. No lytic or blastic lesion. Minimal deg enerative change at the first MTP joint. No erosion or periosteal change. Soft tissues within normal limits. IMPRESSION: . Reviewed, dictated and finalized at location K. IMPRESSION: .
[2024-08-27 19:27] VITALS: BP 137/89; PULSE 88; RESP 16; TEMP 36.7; O2SAT 99
--- NOTE | 2024-08-27 19:34 | ED_ITS ---
HPI - Extremity Injury (Lower) General Chief Complaint: Extremity Injury, Lower Stated Complaint: Left Foot Pain Time Seen by Provider: 08/27/24 19:28 Source: patient and RN notes reviewed Mode of arrival: ambulatory Limitations: no limitations History of Present Illness HPI Narrative: Patient presents today complaining of a 5 day history of pain to the dorsum of the left foot, worse after the foot popped 4 days ago. Denies any known injury or trauma. Also reports some intermittent swelling and bruising to the affected area. She has tried Aleve, ibuprofen, and ice with mild relief. Pain increases with weight-bearing. 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 EYES: Denies visual changes, redness, or discharge. ENT: Denies rhinorrhea, congestion, sore throat, or otalgia. CARDIOVASCULAR: Denies chest pain, palpitations, or edema. RESPIRATORY: Denies cough or dyspnea. GASTROINTESTINAL: Denies abdominal pain, nausea, vomiting, or diarrhea. GENITOURINARY: Denies dysuria or hematuria. SKIN: Denies rash, itching, or wounds. MUSCULOSKELETAL: Left foot pain NEUROLOGIC: Denies headache, numbness, tingling, or weakness. PSYCH: Denies depression or anxiety. [facility] Past Medical History Medical History Post-COVID chronic shortness of breath SOB (shortness of breath) on exertion Hair loss Joint pain Fatigue Family history of lupus No active medical problems Family History Family History Mother Irritable bowel disease Grandparent Lung cancer Grandparent Lung cancer Social History Social History Smoking status: Current every day smoker (Significant vape use daily) Tobacco type: e-cigarettes/vaping Substance use: never Spiritual care concerns: No Comments At time of signature, I have reviewed and agree with nursing past medical, surgical, social and family history unless otherwise noted. Please see nursing chart for further information. There is no relevant family history pertinent to the presenting complaint Exam Narrative: GENERAL: Well-appearing, well-nourished, and in no acute distress. HEAD: Normocephalic, atraumatic. EYES: EOMI. No redness or drainage. Conjunctivae normal. ENT: Mucous membranes pink and moist. NECK: Normal AROM. CHEST: No respiratory distress. EXTREMITIES: Left foot: Tenderness with mild localized swelling to the dorsum of the foot at the distal metatarsals 1 through 3. No bruising, erythema, deformity. Distal sensation intact. Capillary refill normal. Pedal pulse normal. Full range of motion of the toes and ankle. No tenderness to the proximal foot, ankle area. SKIN: Warm, dry, no rash. Capillary refill normal. Normal skin turgor. NEURO: No focal deficits. Alert and oriented x3. Gait steady. PSYCH: Normal affect. No signs of depression or anxiety. Course Course Level of Care: Express Care Visit Vital Signs Vital signs: Vital Signs Temperature 98.0 F 08/27/24 19:27 Pulse Rate 88 08/27/24 19:27 Respiratory Rate 16 08/27/24 19:27 Blood Pressure 137/89 08/27/24 19:27 Pulse Oximetry 99 08/27/24 19:27 Oxygen Delivery Room Air 08/27/24 19:27 Temperature 98.0 F 08/27/24 19:27 Pulse Rate 88 08/27/24 19:27 Respiratory Rate 16 08/27/24 19:27 Blood Pressure 137/89 08/27/24 19:27 Pulse Oximetry 99 08/27/24 19:27 Oxygen Delivery Room Air 08/27/24 19:27 Reviewed MDM - Extremity Injury (Lower) MDM Narrative Medical decision making narrative: Foot x-ray negative. Symptoms likely due to foot sprain. Recommend continuing conservative treatment with PCP or orthopedic follow-up in 3-5 days if symptoms persist. Differential Diagnosis Differential diagnosis: Likely other (Foot sprain, fracture) Imaging Data Radiologist's impression: ITS Impressions Foot X-Ray 08/27/24 20:06 IMPRESSION: . Normal mineralization. No fracture or dislocation. No lytic or blastic lesion. Minimal degenerative change at the first MTP joint. No erosion or periosteal change. Soft tissues within normal limits. Critical Care Time Critical Care Time Critical Care Time: No Discharge Plan Discharge Clinical Impression: Sprain of foot, left Qualifiers: Encounter type: initial encounter Qualified Code(s): S93.602A - Unspecified sprain of left foot, initial encounter Patient Disposition: Home, Self-Care Condition: Stable Instructions: Foot Sprain (ED) Additional Instructions: Your x-rays negative for fracture. Continue ibuprofen and ice to help with pain and inflammation. Follow-up with your PCP or orthopedics in 3-5 days if symptoms persist. Your blood pressure was elevated above 120/80 today at Urgent Care. This puts you above the threshold for follow up. Please schedule a followup visit with your personal physician as soon as possible, for further evaluation and treatment. Even blood pressure exceeding 120/80 may indicate pre-hypertension. Patient Language: Citizen Of [place] Prescriptions: No Action norethindrone (contraceptive) 0.35 mg tablet 0.35 mg PO DAILY 1 mg-20 mcg (24)/75 mg (4) tablet ibuprofen 800 mg tablet 800 mg PO TID PRN (Reason: pain) 7 Days Qty: 21 0RF acetaminophen 500 mg tablet 1,000 mg PO TID PRN (Reason: buck) 7 Days Qty: 42 0RF methocarbamol 750 mg tablet 1,500 mg PO TID Qty: 35 0RF albuterol sulfate [Ventolin HFA] 90 mcg/actuation HFA aerosol inhaler 2 puff inhalation QID PRN (Reason: shortness of breath or wheezing) Qty: 8.5 0RF prednisone 20 mg tablet 60 mg PO DAILY 4 Days Qty: 12 0RF albuterol sulfate 90 mcg/actuation HFA aerosol inhaler 2 puff inhalation QID PRN (Reason: shortness of breath or wheezing) Qty: 8.5 2RF fluticasone propionate 44 mcg/actuation HFA aerosol inhaler 1 inh inhalation BID Qty: 10.6 0RF Rx Instructions: Rinse mouth and spit after each use azithromycin [Zithromax Z-Woody] 250 mg tablet See Rx Instructions PO .COMPLEX Qty: 6 0RF Rx Instructions: For 250 mg dose pack: take 500 mg today (day 1), then 250 mg for 4 days (days 2-5) PO methylprednisolone [Medrol (Woody)] 4 mg tablets,dose pack See Rx Instructions PO PER PKG DIR Qty: 21 0RF Rx Instructions: PO PER PKG DIR Follow-up/Referrals: PHYSICIAN,OCCUPATIONAL HEALTH NURSE SUPERVISOR [Primary Care Provider] - Time of Disposition: 20:09
== END 2024-08-27 20:13 | disposition home or self-care (01) ==
PROVIDERS: Emergency Provider Nurse Practitioner
DX: S93.602A Unspecified sprain of left foot, initial encounter (principal); X58.XXXA Exposure to other specified factors, initial encounter; F17.290 Nicotine dependence, other tobacco product, uncomplicated
CPT/HCPCS: 73630; 99213; G0463

== ENCOUNTER 2024-09-21 10:39 | Emergency (ER) | payer BC, MEDICAID, SELFPAY ==
[2024-09-21 10:46] VITALS: BP 105/72; PULSE 103; RESP 18; TEMP 36.4; O2SAT 96
--- NOTE | 2024-09-21 10:51 | ED_ITS ---
HPI - URI/Sore Throat General Chief Complaint: Upper Respiratory Infection Stated Complaint: shortness of breath/wheezing/congestion Time Seen by Provider: 09/21/24 11:00 Source: patient, RN notes reviewed and old records reviewed Mode of arrival: ambulatory Limitations: no limitations History of Present Illness HPI Narrative: 38-year-old female presents to the [facility] with complaints of cough, congestion shortness of breath wheezing. States that she was recently diagnosed with asthma after having COVID. States she has used her inhaler this morning. Has been using TheraFlu. Denies fevers, chest pain. Onset (ago): day(s) (5) Related Data Home Medications ?Medication ?Instructions ?Recorded ?Confirmed ?Last Taken ?Type norethindrone 1 mg-ethinyl tablet 08/27/24 Unknown History estradiol 20 mcg (24)-iron 75 mg (4) tablet () Allergies Allergy/AdvReac Type Severity Reaction Status Date / Time sumatriptan AdvReac Unknown Nervousness Verified 09/21/24 10:53 Review of Systems Review of Systems: All systems reviewed & are unremarkable except as noted in HPI and below Constitutional: Constitutional: Reports no additional constitutional complaints ENT: Reports as per HPI Cardiovascular: Cardiovascular: Reports no additional cardiovascular c omplaints, Denies chest pain and Denies dyspnea Respiratory: Respiratory: Reports as per HPI, Reports chest congestion, Reports cough, Reports dyspnea and Reports wheezing Musculoskeletal: Musculoskeletal: Reports no additional musculoskeletal complaints Integumentary/Breasts: Skin/Breast: Reports system reviewed and no additional complaints, except as docu PMFSH Past Medical History Medical History Post-COVID chronic shortness of breath SOB (shortness of breath) on exertion Hair loss Joint pain Fatigue Family history of lupus No active medical problems Family History Family History Mother Irritable bowel disease Grandparent Lung cancer Grandparent Lung cancer Social History Social History Smoking status: Current every day smoker (Significant vape use daily) Tobacco type: e-cigarettes/vaping Substance use: never Spiritual care concerns: No Comments At the time of my signature, I reviewed and agree with the nursing past medical, surgical, social, and family history. There is no relevant family history pertinent to the patient complaint. Exam Const: General: cooperative, healthy appearing, comfortable, no acute distress, well developed, alert and well nourished Nutritional Appearance: well nourished Orientation/consciousness: patient oriented x3 Limitations: no limitations HENMT: Head: normal to inspection Ears: hearing grossly normal bilaterally, external ears normal, TM's normal bilaterally, EAC's normal, mastoids normal and no periauricular adenopathy Face/Nose/Sinus: Normal external nose present, Normal nares present, Normal nasal mucous membranes and turbinates present, No nasal discharge present and sinuses nontender Mouth: Yes Normal oral and palatal mucosa present, Yes lip normal and Yes tongue normal Throat: posterior oropharynx normal, uvula midline and no uvular edema Eyes: General: appearance normal, both eyes and all related structures Alignment and Position: alignment normal Neck: Neck: normal visual inspection, full ROM, no lymphadenopathy and no meningeal signs Chest: Chest palpation & inspection: normal inspection of the chest Resp: Effort & Inspection: normal respiratory effort and able to speak in complete sentences Auscultation: no crackles, no rales, no rhonchi and wheezes expiratory wheezes and throughout Cardio: Rate: regular rate Skin: General skin exam: normal color and no rashes or lesions noted Neuro: General: patient oriented x3, gait normal, moves all extremities and no meningeal signs Cognition (Neuro): normal cognition Speech: normal speech Gait exam (Neuro): Normal gait present Extrem: General: normal to inspection, full ROM, capillary refill normal and normal gait Psych: Appearance: grossly normal and well kempt Mental Status: mental status grossly normal Speech and movement: Normal speech and movement present and Clear speech present Affect: normal affect Attitude: cooperative Course Course Level of Care: Express Care Visit Vital Signs Vital signs: Vital Signs Temperature 97.6 F 09/21/24 10:46 Pulse Rate 103 H 09/21/24 10:46 Respiratory Rate 18 09/21/24 10:46 Blood Pressure 105/72 09/21/24 10:46 Pulse Oximetry 96 09/21/24 10:46 Oxygen Delivery Room Air 09/21/24 10:46 Temperature 97.6 F 09/21/24 10:46 Pulse Rate 97 09/21/24 11:35 Respiratory Rate 20 09/21/24 11:35 Blood Pressure 105/72 09/21/24 10:46 Pulse Oximetry 98 09/21/24 11:35 Oxygen Delivery Room Air 09/21/24 10:46 Reviewed MDM - URI/Sore Throat MDM Narrative Medical decision making narrative: Patient sitting in exam room. Patient is nontoxic, vitals stable. Patient presents with cough, congestion wheezing. Wheezing noted on exam. Breathing treatment given, no wheezing noted post treatment. Patient verbalizes she is feeling better. Patient appropriate for outpatient treatment with close follow-up Discharge instructions reviewed with patient, as well as provided in writing per nursing staff. The instructions also include specific and strict return/GO TO THE ER as well as f/u information. All questions have been answered, and the patient deny any further questions with discharge and discharge plan. Some parts of this dictation were generated by voice recognition software and may contain typographical and/or grammatical inaccuracies. Differential Diagnosis Differential diagnosis: Likely upper respiratory infection, otitis media, sinusitis, viral infection and bronchitis Critical Care Time Critical Care Time Critical Care Time: No Discharge Plan Discharge Clinical Impression: Bronchitis Patient Disposition: Home Condition: Stable Instructions: Antibiotic Form, Acute Bronchitis (ED) Additional Instructions: Use your albuterol inhaler 3 to 4 times a day for the next 3-5 days then as needed Take Mucinex as needed Drink plenty of water Follow-up with primary care provider New or worsening symptoms please go directly to the emergency room Patient Language: Uzbek Prescriptions: New albuterol sulfate 90 mcg/actuation HFA aerosol inhaler 2 puff inhalation QID PRN (Reason: shortness of breath or wheezing) Qty: 6.7 0RF (DME) Aerochamber MV Spacer See Rx Instructions .Route Qty: 1 0RF Rx Instructions: As directed prednisone 20 mg tablet See Rx Instructions .Route .COMPLEX Qty: 9 0RF Rx Instructions: Take 40 mg daily for 3 days, 20 mg daily for 3 days No Action Junel Fe 24 1 mg-20 mcg (24)/75 mg (4) tablet albuterol sulfate [Ventolin HFA] 90 mcg/actuation HFA aerosol inhaler 2 puff inhalation QID PRN (Reason: shortness of breath or wheezing) Qty: 8.5 0RF albuterol sulfate 90 mcg/actuation HFA aerosol inhaler 2 puff inhalation QID PRN (Reason: shortness of breath or wheezing) Qty: 8.5 2RF Follow-up/Referrals: PHYSICIAN,MUSHROOM PRESS OPERATOR [Primary Care Provider] - Stand Alone Forms: Work/School Release IP Time of Disposition: 11:34
[2024-09-21] MEDS: IPRATROPIUM BR 0.02% INH SOLN 0.5 MG/2.5 ML VIAL INHALATION (11:10)
[2024-09-21] MEDS: ALBUTEROL SULFATE NEB 2.5 MG/3 ML INH INHALATION (11:10)
[2024-09-21 11:12] VITALS: PULSE 103; RESP 18; O2SAT 96
[2024-09-21 11:35] VITALS: PULSE 97; RESP 20; O2SAT 98
--- OUTSIDE RECORDS SUMMARY | 2024-09-21 12:25 | XMS_ITS | Continuity of Care Document ---
Author Organization [facility] Address [address] [place] [address] Phone Care Team Providers Care Diagnostics Sales Developer Name Role Phone Kat Young Unavailable Unavailable Advance Directives Directive Yes / No Effective Date File Name No Information Encounters Encounter Description Practice Location Reason(s) For Visit Diagnoses Date Provider Providers Copied on Encounter [facility], [address], [place], [place], [id number], [place] tel:[phone] [facility] No Information 0 2-200 1 Hannah Stephens. [address] [facility] , [address], [place], [address], [place]. tel:[phone] Family History Family Member Type Diagnosis Age At Onset No Information Payers Payer name Insurance type Covered constitution party ID Authoriza tion(s) Medicaid [facility] [id number] Social History Type Description Quantity Date Captured [...]
--- OUTSIDE RECORDS SUMMARY | 2024-09-21 12:25 | XMS_ITS | CONTINUITY OF CARE DOCUMENT ---
Author Name genia cormier Address Unknown Organization [facility] Address [address] [place] [address] [address] [place] [address] Phone [phone] Care Team Providers Care Gravel Screener Name Role Phone genia cormier Unavailable Unavailable
--- OUTSIDE RECORDS SUMMARY | 2024-09-21 12:25 | XMS_ITS | Data Portability ---
Author Organization [facility] YANIMatias Hardwick [facility] Address [address] [place] [address] Assessment Encounter Date Assessment Date Assessment LastModified [...] DO Not Attach Compendium, Do Not Delete/merge, [id number] 0 11:09:20 pap, IG + HPV 2018 019 [id number] [facility], [address], [address], 1 03:32:30 bacterial vaginosis + vaginitis panel, vaginal 2015 016 [email or web address] [facility], [address] [facility], [place], [address], 6 12:57:52 pap, IG + reflex HPV if ASC-U 2015 016 [email or web address] [facility], [address] [facility], [address], [place], [address], 6 12:57:52 TSH + free T4, serum 2015 016 [email or web address] [facility], [address] [place] [address], [address], [place], [address], 6 12:57:52 prolactin, serum 2015 016 [email or web address] [facility], [address] [place] [address], [address], [place], [address], 6 12:57:52 HCG, intact + beta subunit, quant, serum or plasma 2015 016 [email or web address] [facility], [address] [place] [address], [address], [place], [address], 6 12:57:52 test, urine 2015 016 [email or web address] In-Office Order, Internal Use Only DO Not Attach Compendium DO Not Attach Compendium, Do Not Delete/merge, [id number] 6 12:57:52 Referral None recorded. Procedures None recorded. Surgeries None recorded. Imaging ultrasound , pelvic transabdom inal & transvagin al - irregular periods and pelvic pain 2015 016 [facility], [address], [place], [address], 6 01:09:33 Medication Orders Junel Fe 24 1 mg-20 mcg (24)/75 mg (4) tablet 2019 020 [id number], [address], [place], [place], [id number], 0 10:51:54 Loestrin Fe 06/15 (28-Day) 1 mg-20 mcg (21)/75 mg (7) tablet [id number], [address] [place], [address], 9 10:14:21 Orsythia 0.1 mg-20 mcg tablet 2016 [address], [address] [place], [address], 9 10:14:32 Ortho Tri-Cyclen LO (28) 0.18 mg/0.215 mg/0.25 mg-25 mcg tablet 2016 [address]17 [address], [address] [place], [address], 9 10:14:27 Aviane 0.1 mg-20 mcg tablet 2015 016 [address] [place], [address], 9 10:14:32 Patient TargetsNo targets recorded. Patient InstructionsNo instructions recorded. Reason for Referral None Reported. Results Created Date Observation Date Name Description Value Unit Range Abnormal Flag Note LastModifiedBy Organization Detail LastModifiedTime 07/12/19 16 07/12/2015 pregn sandra test, urine HCG negati ve Not Available In-Office Order Internal Use Only DO Not Attach Compendium DO Not Attach Compendium, Do Not Delete/merge, [id number] 07/12/2015 10:44:14 06/30/19 16 07/01/2015 CBC w/ auto diff WBC 8.8 x10e3 /uL 3.4-10 .8 Not Available [facility] ([facility]) [address] [facility], [place], [address], 07/01/2015 06:28:03 06/30/19 16 07/01/2015 CBC w/ auto diff RBC 4.54 x10e6 /uL 3.77-5 .28 Not Available [facility] ([facility]) [address] [facility], [place], [address], 07/01/2015 06:28:03 06/30/19 16 07/01/2015 CBC w/ auto diff hemoglobin 14.5 g/dL 11.1-1 5.9 Not Available [facility] ([facility]) [address] [facility] [place], [address], 07/01/2015 06:28:03 06/30/19 16 07/01/2015 CBC w/ auto diff hematocrit 42.3 % 34.0-4 6.6 Not Available [facility] ([facility]) [address] [facility] [place], [address], 07/01/2015 06:28:03 06/30/19 16 07/01/2015 CBC w/ auto diff MCV 93 fL 79-97 Not Available [facility] ([facility]) [address] [facility], [place], [address], 07/01/2015 06:28:03 06/30/19 16 07/01/2015 CBC w/ auto diff MCH 31.9 pg 26.6-3 3.0 Not Available [facility] ([facility]) [address] [facility] [place], [address], 07/01/2015 06:28:03 06/30/19 16 07/01/2015 CBC w/ auto diff MCHC 34.3 g/dL 31.5-3 5.7 Not Available [facility] ([facility]) [address] [facility] [place], [address], 07/01/2015 06:28:03 06/30/19 16 07/01/2015 CBC w/ auto diff RDW 12.7 % 12.3-1 5.4 Not Available [facility] ([facility]) [address] [facility] [place], [address], 07/01/2015 06:28:03 06/30/19 16 07/01/2015 CBC w/ auto diff neutrophils 55 % Not Available [facility] [address] [place], [address], 07/01/2015 06:28:03 06/30/19 16 07/01/2015 CBC w/ auto diff lymphs 29 % Not Available [facility] ([facility]) [address] [place], [address], 07/01/2015 06:28:03 06/30/19 16 07/01/2015 CBC w/ auto diff monocytes 7 % Not Available [facility]) [address] [place], [address], 07/01/2015 06:28:03 06/30/19 16 07/01/2015 CBC w/ auto diff eos 8 % Not Available [facility]) [address] [place], [address], 07/01/2015 06:28:03 06/30/19 16 07/01/2015 CBC w/ auto diff basos 1 % Not Available [facility]) [address] [place], [address], 07/01/2015 06:28:03 06/30/19 16 07/01/2015 CBC w/ auto diff immature cells PROJECT MANAGEMENT PROFESSIONAL Not Available [facility] [address] [place], [address], 07/01/2015 06:28:03 06/30/19 16 07/01/2015 CBC w/ auto diff neutrophils (absolute) 4.9 x10e3 /uL 1.4-7. 0 Not Available [facility] ([facility]) [address] [place], [address], 07/01/2015 06:28:03 06/30/19 16 07/01/2015 CBC w/ auto diff lymphs (absolute) 2.5 x10e3 /uL 0.7-3. 1 Not Available [facility] ([facility]) [address] [place], [address], 07/01/2015 06:28:03 06/30/19 16 07/01/2015 CBC w/ auto diff monocytes(ab solute) 0.6 x10e3 /uL 0.1-0. 9 Not Available [facility] ([facility]) [address] [facility], [place], [address], 07/01/2015 06:28:03 06/30/19 16 07/01/2015 CBC w/ auto diff eos (absolute) 0.7 x10e3 /uL 0.0-0. 4 above high normal Not Available [facility] ([facility]) [address] [facility], [place], [address], 07/01/2015 06:28:03 06/30/1907/01/2015 CBC w/ auto diff baso (absolute) 0.1 x10e3 /uL 0.0-0. 2 Not Available [facility] ([facility]) [address] [facility], [place], [address], 07/01/2015 06:28:03 06/30/19 16 07/01/2015 CBC w/ auto diff immature granulocytes 0 % Not Available [facility] [address] [place], [address], 07/01/2015 06:28:03 06/30/19 16 07/01/2015 CBC w/ auto diff immature grans (abs) 0.0 x10e3 /uL 0.0-0. 1 Not Available [facility]) [address] [place], [address], 07/01/2015 06:28:03 06/30/1907/01/2015 CBC w/ auto diff NRBC PROJECT MANAGEMENT PROFESSIONAL Not Available [facility]) [address] [place], [address], 07/01/2015 06:28:03 06/30/1907/01/2015 CBC w/ auto diff hematology comments: PROJECT MANAGEMENT PROFESSIONAL Not Available [facility] [address] [facility], [place], [address], 07/01/2015 06:28:03 06/30/19 16 07/01/2015 CMP, serum or plasm a glucose, serum 85 mg/dL 65-99 Not Available [facility] [address] [place], [address], 07/01/2015 06:28:05 06/30/19 16 07/01/2015 CMP, serum or plasm a BUN 9 mg/dL 6-20 Not Available [facility]) [address] [place], [address], 07/01/2015 06:28:05 06/30/19 16 07/01/2015 CMP, serum or plasm a creatinine, serum 0.71 mg/dL 0.57-1 .00 Not Available [facility] ([facility]) [address] [place], [address], 07/01/2015 06:28:05 06/30/19 16 07/01/2015 CMP, serum or plasm a eGFR if nonafricn AM 116 mL/mi n/1.7 3 >59 Not Available [facility] ([facility]) [address] [place], [address], 07/01/2015 06:28:05 06/30/19 16 07/01/2015 CMP, serum or plasm a eGFR if africn AM 134 mL/mi n/1.7 3 >59 Not Available [facility] ([facility]) [address] [place], [address], 07/01/2015 06:28:05 06/30/19 16 07/01/2015 CMP, serum or plasm a BUN/creatini ne ratio 13 8-20 Not Available [facility] [address] [place], [address], 07/01/2015 06:28:05 06/30/19 16 07/01/2015 CMP, serum or plasm a sodium, serum 142 mmol/ L 134-14 4 Not Available [facility] ([facility]) [address] [place], [address], 07/01/2015 06:28:05 06/30/1907/01/2015 CMP, serum or plasm a potassium, serum 4.5 mmol/ L 3.5-5. 2 Not Available [facility] [address] [place], [address], 07/01/2015 06:28:05 06/30/1907/01/2015 CMP, serum or plasm a chloride, serum 102 mmol/ L 97-108 Not Available [facility]) [address] [place], [address], 07/01/2015 06:28:06/30/1907/01/2015 CMP, serum or plasm a carbon dioxide, total 25 mmol/ L 18-29 Not Available [facility] [address] [place], [address], 07/01/2015 06:28:05 06/30/1907/01/2015 CMP, serum or plasm a calcium, serum 9.1 mg/dL 8.7-10 .2 Not Available [facility] [address] [place], [address], 07/01/2015 06:28:06/30/1907/01/2015 CMP, serum or plasm a protein, total, serum 7.0 g/dL 6.0-8. 5 Not Available [facility] [address] [place], [address], 07/01/2015 06:28:06/30/1907/01/2015 CMP, serum or plasm a albumin, serum 4.3 g/dL 3.5-5. 5 Not Available [facility] [address] [place], [address], 07/01/2015 06:28:05 06/30/19 16 07/01/2015 CMP, serum or plasm a globulin, total 2.7 g/dL 1.5-4. 5 Not Available [facility]) [address] [facility] [place], [address], 07/01/2015 06:28:05 06/30/19 16 07/01/2015 CMP, serum or plasm a A/G ratio 1.6 1.1-2. 5 Not Available [facility] ([facility]) [address] [facility] [place], [address], 07/01/2015 06:28:05 06/30/19 16 07/01/2015 CMP, serum or plasm a bilirubin, total 0.4 mg/dL 0.0-1. 2 Not Available [facility] ([facility]) [address] [place], [address], 07/01/2015 06:28:06/30/19 16 07/01/2015 CMP, serum or plasm a alkaline phosphatase, S 38 IU/L 39-117 below low normal Not Available [facility]) [address] [facility] [place], [address], 07/01/2015 06:28:05 06/30/19 16 07/01/2015 CMP, serum or plasm a AST (SGOT) 14 IU/L 0-40 Not Available [facility]) [address] [place], [address], 07/01/2015 06:28:06/30/1907/01/2015 CMP, serum or plasm a ALT (SGPT) 13 IU/L 0-32 Not Available [facility]) [address] [place], [address], 07/01/2015 06:28:05 06/30/19 16 07/01/2015 lipid panel , serum cholesterol, total 157 mg/dL 100-19 9 Not Available [facility] ([facility]) [address] [place], [address], 07/01/2015 06:28:07 06/30/19 16 07/01/2015 lipid panel , serum triglyceride s 72 mg/dL 0-149 Not Available [facility] [address] [facility] [place], [address], 07/01/2015 06:28:07 06/30/1907/01/2015 lipid panel , serum HDL cholesterol 49 mg/dL >39 ACCOR DING TO ATP-I II GUIDE LINES , HDL-C >59 MG/DL IS CONSI DERED A NEGAT HIEN RISK FACTO R FOR CHD. Not Available [facility] ([facility]) [address] [facility] [place], [address], 07/01/2015 06:28:07 06/30/19 16 07/01/2015 lipid panel , serum VLDL cholesterol mayo 14 mg/dL 5-40 Not Available [facility] [address] [place], [address], 07/01/2015 06:28:07 06/30/1907/01/2015 lipid panel , serum LDL cholesterol calc 94 mg/dL 0-99 Not Available [facility] [address] [place], [address], 07/01/2015 06:28:07 06/30/19 16 07/01/2015 lipid panel , serum comment: PROJECT MANAGEMENT PROFESSIONAL Not Available [facility] ([facility]) [address] [place], [address], 07/01/2015 06:28:07 06/30/1907/01/2015 TSH, serum or plasm a TSH 0.742 uIU/m L 0.450- 4.500 Not Available [facility] ([facility]) [address] [place], [address], 07/01/2015 06:28:08 07/12/19 16 07/13/2015 TSH + free T4, serum TSH 1.620 uIU/m L 0.450- 4.500 Not Available [facility]) [address] [place], [address], 07/13/2015 07:18:49 07/12/19 16 07/13/2015 TSH + free T4, serum T4,free(dire ct) 1.13 NG/dL 0.82-1 .77 Not Available [facility] ([facility]) [address] [place], [address], 07/13/2015 07:18:49 07/12/1907/13/2015 HCG, intac t + beta subun it, quant , serum or plasm a HCG,beta subunit,qnt, serum <1 mIU/m L FEMAL E (NON- PREGN ANT) 0 - 5 (POST MENOP AUSAL ) 0 - 8 FEMAL E (PREG NANT) WEEKS OF GESTA TION 3 6 - 71 4 10 - 750 5 500 - 3554 6 866 - 72608 7 4299 -7747 63 8 08667 -9149 71 9 32058 -0264 10 10 32314 -3721 77 12 51397 -2055 12 14 50153 - 08425 15 45028 - 00871 16 6656 - 20302 17 0293 - 12995 18 2139 - 53003 LUIS ALBERTO ECLIA METHO DOLOG Y Not Available [facility]) [address] [place], [address], 07/13/2015 07:18:50 07/12/1907/13/2015 prola ctin, serum prolactin 7.7 NG/mL 4.8-23 .3 Not Available [facility] ([facility]) [address] [place], [address], 07/13/2015 07:18:50 07/12/19 16 07/14/2015 pap, IG + refle x HPV if ASC-U diagnosis: COMMEN T NEGAT HIEN FOR INTRA EPITH ELIAL FOSTER Shafer AND CAROL LATHAM . Not Available [facility] [address] [place], [address], 07/14/2015 16:32:26 07/12/19 16 07/14/2015 pap, IG + refle x HPV if ASC-U specimen adequacy: JUANY T SATIS FACTO RY FOR EVALU ATION . ENDOC ERVIC AL AND/O R SQUAM OUS METAP LASTI C CELLS (ENDO CERVI MAYO COMPO NENT) ARE PRESE NT. Not Available [facility]) [address] [facility], [place], [address], 07/14/2015 16:32:26 07/12/19 16 07/14/2015 pap, IG + refle x HPV if ASC-U performed by: JUANY Shafer, CYTOT DAVIS Barrios (ASCP ) Not Available [facility]) [address] [place], [address], 07/14/2015 16:32:26 07/12/19 16 07/14/2015 pap, IG + refle x HPV if ASC-U . . Not Available [facility] ([facility]) [address] [place], [address], 07/14/2015 16:32:26 07/12/19 16 07/14/2015 pap, IG [...] TS DO OCCUR . Not Available [facility]) [address] [place], [address], 07/14/2015 16:32:26 07/12/19 16 07/14/2015 pap, IG + refle x HPV if ASC-U test methodology: COMMEN T THIS LIQUI D BASED THINP REP(R ) PAP TEST WAS SCREE ROCÍO WITH THE USE OF AN IMAGE GUIDE Virginia Cosme. Not Available [facility] ([facility]) [address] [place], [address], 07/14/2015 16:32:26 07/12/19 16 07/14/2015 pap, IG + refle x HPV if ASC-U . COMMEN T THE HPV DNA REFLE X CRITE KAELA WERE NOT MET WITH THIS SPECI MEN RESUL T THERE FORE, NO HPV TESTI NG WAS PERFO RMED. Not Available [facility] ([facility]) [address] [place], [address], 07/14/2015 16:32:26 07/12/19 16 07/14/2015 bacte rial vagin osis + vagin itis panel , vagin al atopobium vaginae HIGH - 2 score abnormal Not Available [facility]) [address] [place], [address], 07/15/2015 11:21:43 07/12/19 16 07/14/2015 bacte rial vagin osis + vagin itis panel , vagin al bvab 2 LOW - 0 score Not Available [facility]) [address] [place], [address], 07/15/2015 11:21:43 07/12/19 16 07/14/2015 bacte rial vagin osis + vagin itis panel , vagin al megasphaera 1 HIGH - 2 score abnormal CALCU LATE TOTAL SCORE BY EMMY G THE 3 INDIV IDUAL BACTE RIAL [...] E AMAURY CTERI STICS DETER MINED BY [employer]) [employer]. IT HAS NOT BEEN CLEAR ED OR APPRO EDIN BY THE FOOD AND DRUG ADMIN ISTRA TION. THE FDA HAS DETER MINED THAT SUCH CLEAR ANCE OR APPRO CASSIA IS NOT NECES KELLEN. Not Available [facility] ([facility]) [address] [place], [address], 07/15/2015 11:21:43 07/12/19 16 07/14/2015 bacte rial vagin osis + vagin itis panel , vagin al kj albicans, JOHNSON NEGATI VE negati ve Not Available [facility] ([facility]) [address] [place], [address], 07/15/2015 11:21:43 07/12/19 16 07/14/2015 bacte rial vagin osis + vagin itis panel , vagin al kj glabrata, JOHNSON NEGATI VE negati ve THIS TEST WAS DEVEL OPED AND ITS PERFO RMANC E AMAURY CTERI STICS DETER MINED BY [employer] [facility]. IT HAS NOT BEEN CLEAR ED OR APPRO EDIN BY THE FOOD AND DRUG ADMIN ISTRA TION. THE FDA HAS DETER MINED THAT SUCH CLEAR ANCE OR APPRO CASSIA IS NOT NECES KELLEN. Not Available [facility]) [address] [place], [address], 07/15/2015 11:21:43 07/12/1907/14/2015 bacte rial vagin osis + vagin itis panel , vagin al trich vag by JOHNSON NEGATI VE negati ve Not Available [facility]) [address] [place], [address], 07/15/2015 11:21:43 07/12/19 16 07/15/2015 bacte rial vagin osis + vagin itis panel , vagin al chlamydia trachomatis, JOHNSON NEGATI VE negati ve Not Available [facility] [address] [facility] [place], [address], 07/15/2015 11:21:43 07/12/19 16 07/15/2015 bacte rial vagin osis + vagin itis panel , vagin al neisseria gonorrhoeae, JOHNSON NEGATI VE negati ve Not Available [facility]) [address] [place], [address], 07/15/2015 11:21:43 09/30/19 19 10/01/2018 pap, IG + HPV diagnosis: Juany [place] FOR INTRA EPITH ELIAL LESIO N OR CAROL LATHAM . Not Available [facility]) [address] [place], [address], 10/01/2018 16:11:44 09/30/19 19 10/01/2018 pap, IG + HPV specimen adequacy: Juany barrios Satis facto pee for evalu ation . Endoc ervic al and/o r squam ous metap lasti c cells (endo cervi mayo compo nent) are prese nt. Not Available [facility]) [address] [place], [address], 10/01/2018 16:11:44 09/30/19 19 10/01/2018 pap, IG + HPV clinician provided ICD10: Juany barrios Z01.4 19 Not Available [facility]) [address] [place], [address], 10/01/2018 16:11:44 09/30/19 19 10/01/2018 pap, IG + HPV performed by: Juany almazan, Cytot davis barrios (ASCP ) Not Available [facility]) [address] [place], [address], 10/01/2018 16:11:44 09/30/19 19 10/01/2018 pap, IG + HPV . . Not Available [facility] [address] [facility] [place], [address], 10/01/2018 16:11:44 09/30/19 19 10/01/2018 pap, IG [...] ts do occur . Not Available [facility] [address] [facility], [place], [address], 10/01/2018 16:11:44 09/30/19 19 10/01/2018 pap, IG + HPV test methodology: Merylen t This liqui d based ThinP rep(R ) pap test was scree rocío with the use of an image guide d syste m. Not Available [facility] ([facility]) [address] [facility], [place], [address], 10/01/2018 16:11:44 09/30/1910/01/2018 pap, IG + HPV HPV aptima Negati ve negati ve This test detec ts fourt een high- risk HPV types (16/1 8/31/ 33/35 /39/4 5/ 51/52 /56/5 8/59/ 66/68 ) witho ut diffe renti ation . Not Available [facility]) [address] [facility], [place], [address], 10/01/2018 16:11:44 04/18/2004/18/2020 pregn sandra test, urine HCG negati ve Not Available In-Office Order Internal Use Only DO Not Attach Compendium DO Not Attach Compendium, Do Not Delete/merge, [id number] 04/18/2020 10:33:36 07/31/19 16 07/29/2015 ultra sound , pelvi c trans abdom inal & trans vagin al No observ ation record ed. [email or web address] [address] [place], [address], 08/01/2015 11:58:54 Result Notes None recorded. Problems Name Problem SNOMED Code Status Onset Date Resolution Date Notes Provider Name and Address Organization Details Recorded Time Smoker 60901415 Active Vannesa Gallegos RN null, [place] - [facility] 10:10:58 Skin lesion 14610387 Active Vannesa Galleg[place] RN [place] 10:10:58 Irregular periods 61337543 Active Denice Mallory null, [place] [facility] [place] 12:57:51 Vaginal discharge 565235040 Active Denice Mall[place] null, [place] [facility] 6 12:57:51 Bacterial vaginosis 887586368 Active Vannesa Gallegos RN null, [place] 6 11:59:16 Problem Notes None recorded. Procedures Surgical History Date Name Laterality Status Provider Name and Address Organization Details Recorded Time 4 Tonsillectomy completed Yan Leiva MA [facility] 02/01/2015 09:57:32 5 Appendectomy completed Yan Leiva MA [facility] 02/01/2015 09:57:32 3 Eye Surgery completed Yan Leiva MA [facility] 02/01/2015 09:57:32 Imaging Results Imaging Date Name Status LastModified by Organization Details LastModified Time 07/29/2015 ultrasound, pelvic transabdominal & transvaginal completed [email or web address] [address] [place], [address], 08/01/2015 11:58:54 Procedure Notes None recorded. Medical Equipment None Reported. Allergies Allergen ID Allergen Name Allergen Category Reaction Reaction Severity Criticality Documentation Date Start Date Code Code System Note Provider Name and Address Organization Details Recorded Time 81652 latex environme nt,medica tion itching Not available Not available 01/26/2015 18734 91 RxNorm Not Available Not Available Not Available 41424 Lo Loestrin Fe medicatio n rash Not available Not available 01/27/2015 57884 UNK Not Available Not Available Not Available [...] Address Organization Details Last Updated DateTime 09/29/2018 76682.86 g 112 mm[Hg] 66 mm[Hg] Kacy Adams [place] [facility] 09/29/2018 10:47:42 Date Recorded Body height Body mass index (BMI) Body weight Systolic blood pressure Diastolic blood pressure Provider Name and Address Organization Details Last Updated DateTime 04/18/2020 160.02 cm 26.9 kg/m2 80515.04 g 110 mm[Hg] 74 mm[Hg] Renita Arellano MA [facility] 0 10:33:05 Date Recorded Body weight Body mass index (BMI) Body height Systolic blood pressure Diastolic blood pressure Provider Name and Address Organization Details Last Updated DateTime 07/12/2015 12127.89 365 g 25.7 kg/m2 160.02 cm 112 mm[Hg] 76 mm[Hg] Vannesa Gallegos RN [facility] 6 10:10:58 Date Recorded Body height Body weight Body mass index (BMI) Systolic blood pressure Diastolic blood pressure Provider Name and Address Organization Details Last Updated DateTime 06/07/2016 160.02 cm 01942.29 g 26.6 kg/m2 114 mm[Hg] 70 mm[Hg] Sanjuana Jaffe MA [facility] 7 09:08:10 Date Recorded Body height Body weight Body mass index (BMI) Systolic blood pressure Diastolic blood pressure Provider Name and Address Organization Details Last Updated DateTime 09/25/2016 160.02 cm 32646.25 g 27.5 kg/m2 138 mm[Hg] 82 mm[Hg] Sanjuana Jaffe MA [facility] 7 11:40:18 Social History Question Answer Notes LastModified by Organizat ion Details LastModified Time Tobacco Smoking Status Current Every Day Smoker Sanjuana Jaffe MA null, [facility] 01/26/2015 10:54:00 What Is Your Level Of Alcohol Consumption? Occasional Information not available 01/26/2015 Is Blood Transfusion Acceptable In An Emergency? Yes [email or web address] Information not available 07/12/2015 What Is Your [...] not available 01/26/2015 General Stress Level Medium [email or web address] Information not available 02/01/2015 How Many Years Have You Smoked Tobacco? 10 Information not available 01/26/2015 Sex: Unknown Functional Status None recorded. Mental Status None recorded. Family History Relationship Description Onset Age of this Age Resolved Age Notes LastModified by Organization Details LastModified Time Mother Harmful pattern of use of alcohol [email or web address] Not available 07/12 10:10:58 Mother Migraine Not availab le 07/12/2015 10:10:58 Mother Arthritis [email or web address] Not availa ble 07/12/2015 10:10:58 Father Diabetes mellitus [email or web address] Not available 07/12 10:10:58 Brother Attention deficit hyperactivit y disorder [email or web address] Not available 06/27 10:10:58 Brother Lymphoma finding [email or web address] Not available 07/12 10:10:58 Medical History Condition Response Heart Problems N Other N Breast Cancer N Thyroid Problems N Kidney or Bladder Problems N Lung Disease N Depression N GI Problems N Acne N Breast Problem N Eating Disorder N Anemia N Anesthesia Complications N Headaches/Migraines N Ovarian Cancer N Diabetes N Anxiety Disorder N Blood Transfusions N Arthritis N Polyps N Infertility N Acid Reflux (GERD) N Cancer N Stroke N Abuse/Domestic Violence N Asthma N Endometriosis N High Cholesterol N Hepatitis N Heart Disease N Headaches Y Fibromyalgia N Pre-Eclampsia N Hypertension N Osteoporosis N Kidney [...] SNOMED-CT Code Diagnosis ICD10 Code Diagnosis Note [id number] Yana Rangel ([facility] 122) 2 [facility] [address] [place] [address] 01/26/2015 10:33:45 01/27/2015 10:49:53 Contraception care [id number] Casandra Velásquez (Adult Med) 2 [facility] [address] [place] [address] 02/01/2015 09:38:48 02/01/2015 10:25:25 Adult health examination [id number] Encouraged well balanced meals, active lifestyle, and routine vision/den brian/dry curer apts. Smoker [id number] Has trie d to quit with 2 failed attempts. Wellbutrin caused mood swings. Faild 'cold turkey'. Longest quit time 3 weeks. Will continue to try. smoker as well. Skin lesion [id number] Pat ient having elevation of scars, thought to be from BCP lo estrin she was taken. 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 Hyperlipid emia screening [id number] Diabetes m ellitus screening [id number] Thyroid di sorder screening [id number] Anemia screening [id number] Denice Rangel ([place] [address]) [address] [facility] [place] [address] 07/12/2015 09:56:25 07/12/2015 11:49:42 Irregular periods 38185811 N92.6 Patient having irregular cycles on triphasic pill. And concerned about ovarian cyst due to bilateral pelvic pain. Will order pelvic ultrasound and change to monophasic pill. Change from lo estrin previously due to dermatolog y concern about causing lichen planus. Will change to another monophasic pill hopefully covered by insurance. Gynecologi c examination [id number] Z01.419 Vaginal discharge 426050 006 N89.8 Contraception care 09362 [id number] Z30.40 [id number] MD James Arguelles ([place] [address]) [address] [facility] [place] [address] 06/07/2016 08:45:56 06/07/2016 12:48:44 Contraception care [id number] Z30.40 [id number] MD James Arguelles ([place] [address]) [address] [facility] [place] [address] 09/25/2016 11:31:23 09/25/2016 12:28:27 Contraception care 549332021 Z30.40 Discontinu e ortho tri-cyclen lo [id number] MD James Arguelles 14 OB [address] [facility] [address] [place] [address] 09/29/2018 10:36:02 09/29/2018 12:37:17 Gynecologic examination 94413317 Z01.419 CBE and pap smear performed Contracept ion care management 913676246 Z30.9 [id number] MD James Arguelles 14 OB [address] [facility] [address] [place] [address] 04/18/2020 10:24:22 04/19/2020 11:14:22 Contraception care management 416742914 Z30.9 Routine gy necologic examination done [id number] 9101 Z01.419 CBE and pelvic exam performed. Health Concerns Section Related Observation LastModified by Organization Detai ls LastModified Time None Recorded Concern Status LastModified by Organization Details LastModified Time None Recorded Advance Directives Directive None Recorded Payers Encounter Date Sequence Insurance Name Policy Number Policy Preston Covered Member ID Preston Member ID Guarantor Name 07/12/2015 1 [place] [id number] Trae Harden [id number] Harpreet Harden 06/07/2016 1 [place] Harpreet Harden [id number] Harpreet Harden 09/25/2016 2 [facility] PRIOR TO 11/24/2020 (MEDICAID REPLACEMENT - HMO) Harpreet Harden [id number] Harpreet Harden 09/29/2018 2 [facility] PRIOR TO 11/24/2020 (MEDICAID REPLACEMENT - HMO) Harpreet Harden [id number] Harpreet Harden 09/29/2018 1 [place] [id number] Trae Harden [id number] Harpreet Harden 04/18/2020 2 [facility] PRIOR TO 11/24/2020 (MEDICAID REPLACEMENT - HMO) Harpreet Harden [id number] Harpreet Harden 04/18/2020 1 [place] [id number] Trae Harden [id number] Harpreet Harden Notes Date Note Type [...] self breast examination; Encourage regular exercise [facility] 07/22/2015 12:57:59 06/07/2016 text/html Patient has been on control for contraception and desires a refill. She has no issues with her current medication and does not desire to try a new form of contraception. No other complaints at this time. Jose Enrique Castaneda MD Attn: [address] [place], [address], [facility] 06/07/2016 09:36:23 09/25/2016 text/html Patient presents today because she would like to change her brand of control pills. She states the ones she currenlty takes causes migraines without aura. She denies any other complaints. Jose Enrique Castaneda MD Attn: [address]ing[address] [place], [address], [facility] 09/25/2016 11:53:21 09/29/2018 text/html Annual GYNReport ed [...] Jose Enrique Castaneda MD Attn: [address]ing[address] [place], [address], [facility] 09/29/2018 11:01:25 04/18/2020 text/html Annual GYNReport ed [...] Jose Enrique Castaneda MD Attn: [address] [place], [address], [facility] 04/18/2020 12:13:51 OBGyn Episode No OBEpisode recorded.
--- OUTSIDE RECORDS SUMMARY | 2024-09-21 12:26 | XMS_ITS | Data Portability ---
Author Organization [facility] [place] Address [address] [place] [address] Care Team Providers Care Operating Room Registered Nurse Name Role Phone GUADALUPE MCNEILL Primary Care Provider [phone] Assessment Encounter Date Assessment Date Assessment LastModified by Organization Details LastModified Time 03/16/2022 03/16/2022 Patient is ___weeks . Discussed plan. [email or web address] Not available 03/16/2022 10:51:00 04/17/2022 04/17/2022 Normal exam May resume normal activities contraceptive plan-- POP FU for WWE 3 mos [email or web address] Not available 04/18/2022 07:58:59 07/18/2022 07/18/2022 healthy female exam patient declines std testing pap done mammogram at 41 contraception-pt wants to continue POP. does not want to be unprotected or risk decreasing milk supply. did discuss other progesterone options. can try junel when weans. clobetasol refilled for planus FU 1 year or prn [email or web address] Not available 07/18/2022 11:05:20 04/20/2024 04/20/2024 Annual gynecological exam performed. Patient will come back in a year unless there are new symptoms. [email or web address] Not available 03/16/2024 12:11:29 Plan of Treatment Reminders Order Date Submit Date Provider Last Modified By Organization Details Last Modified Time Details Appointments None recorded. Lab None recorded. Referral None recorded. Procedures None recorded. Surgeries None recorded. Imaging None recorded. Medication Orders Junel Fe 24 1 mg-20 mcg (24)/75 mg (4) tablet 2023 024 [facility] #[id number], [address], [place], [id number], 4 17:03:52 clobetasol 0.05 % topical ointment 2022 023 [facility] #21119, [address], [place], [id number], 3 11:05:42 Celexa 20 mg tablet 2021 022 [email or web address] [facility] #74052, [address], [place], [id number], 3 10:27:38 Ortho Micronor 0.35 mg tablet 2021 022 [email or web address] 1 [facility][id number], [address], [place], [id number], 5 09:48:28 Patient TargetsNo targets recorded. Patient InstructionsNo instructions recorded. Reason for Referral None Reported. Results Created Date Observation Date Name Description Value Unit Range Abnormal Flag Note LastModifiedBy Organization Detail LastModifiedTime 03/09/2003/09/2022 CULTU RE: GROUP B STREP SCREE N, REFLE X SUSCE PTIBI LITY result report SEE RESULT S BELOW Test: Cultu re: Group B Strep , Refle x Susce ptibi lity ([facility] ) Speci men Sourc e: Vagin a/Rec ana Speci men Type: Vagin al/Re ctal Speci men Date: 03/09 2:32 PM Resul t Date: 03/12 9:00 PM Resul t Statu s: Final resul t Abnor mal: No Resul ting Lab: [facility] [address] [facility] [address] Tel: CULTU RE ----- ----- ----- --- No Group B strep isola gauri at 2 days (arabella ctive broth enhan cemen t) Not Available [facility] [address], [place], [address], 03/12/2022 22:02:39 07/18/19 23 07/18/2022 IMAGE GUIDE D PAP AND HPV REGAR DLESS image guided Pap, HPV regardless of Pap result SEE RESULT S BELOW CASE REPOR T: Cytol ogy Gynec ologi sheng Repor t Case: [id number] Autho britt stiles Provi antonio: Ana Johnson MD Colle cted: 07/18 1549 Order ing Locat ion: [place] Patho logy Recei yusef: 07/19 0852 First Scree n: Dalton Varela am, CT Speci men: [...] as clini russel bauer nted. Not Available [facility] (Lab) [address], [place], [address], 07/23/2022 08:48:27 04/20/20 24 04/20/2024 IMAGE GUIDE D PAP AND HPV REGAR DLESS image guided Pap, HPV regardless of Pap result SEE RESULT S BELOW CASE REPOR T: Cytol ogy Gynec ologi sheng Repor t Case: [id number] Autho britt stiles Provi antonio: Mihai Sena MD Colle cted: 04/20 1625 Order ing Locat ion: [place] Patho logy Recei yusef: 04/21 1127 First Scree n: Strut z, Willi am, CT Speci men: Scree daiana Pap - Image d, Cervi x STATE MENT OF ADEQU ACY: Satis facto ry for evalu ation Trans forma tion zone compo nent prese nt ----- ----- ----- ----- ----- ----- ----- ----- ----- ----- ----- ----- ----- ----- ----- ----- ----- ---- FINAL DIAGN OSIS: Negat melyssa for Intra epith elial Lesnati delgado or Colby avery (NIL) . Elect [...] Neopl estuardo (if appli cable ): Signi ficgoran t Clini sheng Findi ngs: Other Histo [...] as clini russel warra nted. Not Available [facility] (Lab) [address], [place], [address], 05/01/2024 12:08:09 04/20/20 24 04/20/2024 TRICH OMONA S VAGIN SHARITA (RRNA ) trichomonas vaginalis ribosomal RNA (rrna) Negati ve negati ve Not Available [facility] (Lab) [address], [place], [address], 05/01/2024 12:08:10 04/20/20 24 04/20/2024 CT/GC (ABDOUL) , THINP REP VIAL chlamydia trachomatis, PCR Negati ve negati ve Not Available [facility] (Lab) [address], [place], [address], 05/01/2024 12:08:10 04/20/20 24 04/20/2024 CT/GC (ABDOUL) , THINP REP VIAL neisseria gonorrhoeae, PCR Negati ve negati ve Not Available [facility] (Lab) [address], [place], [address], 05/01/2024 12:08:10 03/02/20 22 03/02/2022 US, obste tric, follo w-up No observ ation record ed. [email or web address] [address], [place], [address], 03/02/2022 13:29:55 03/02/20 22 03/02/2022 US, obste tric, follo w-up No observ ation record ed. JC [facility] [address], [place], [address], 03/05/2022 16:03:11 Result Notes None recorded. Problems Name Problem SNOMED Code Status Onset Date Resolution Date Notes Provider Name and Address Organization Details Recorded Time Pregnanc y 24657444 Completed 202106/28/2022 Violette gonzalez michael, [facility] 3 15:01:05 Late entry into care 540498837 Completed 21w6d, did not find out until 19w, poor dating Violette gonzalez michael, [facility] 3 15:00:58 Advanced maternal age 861488033 Completed aware of risks, declines nipt Violettebita gonzalez [facility] 3 15:00:58 exposure to alcohol 963937743 Completed Violette gonzalez [facility], [facility] 3 15:00:58 SARS-CoV -2 Completed 2021 ASA & Serial growth Violette gonzalez [facility], [facility] 3 15:00:58 Chronic lichen planus 651641945 Active 2022 Ana Dennis MD [address], [place], [address], [facility] 3 11:04:13 Problem Notes None recorded. Procedures Surgical History Date Name Laterality Status Provider Name and Address Organization Details Recorded Time 07/18/19 23 Date of Last Pap Smear completed Angela Romeo [facility] 03/16/2024 12:12:38 05/27/19 05 tonsilectomy/martha noids completed Brittani Henriquez [facility] 04/17/2022 17:23:32 05/27/18 97 Appendectomy completed Brittani Henriquez [facility] 04/17/2022 17:23:23 05/27/18 94 procedure on eye completed Brittani Henriquez [facility] 04/17/2022 17:23:28 Imaging Results Imaging Date Name Status LastModified by Organiz ation Details LastModified Time 03/02/2022 US, obstetric, follow-up completed [email or web address] [place] [address], [place], [address], 03/02/2022 13:29:55 03/02/2022 US, obstetric, follow-up completed JC James [address], [place], [address], 03/05/2022 16:03:11 Procedure Notes None recorded. Medical [...] TAKE 1 TABLET BY MOUTH EVERY DAY 09/14 completed Not Available Not Available Not Available amoxicillin 875 mg-potassiu m clavulanate 125 mg tablet TAKE 1 [...] 1 mg-20 mcg (24)/75 mg (4) tablet TAKE 1 TABLET BY MOUTH EVERY DAY 2024 active Not Available Not Available Not Avai lable Vitals Date Recorded Body height Body mass index (BMI) Body weight Systolic blood pressure Diastolic blood pressure Provider Name and Address Organization Details Last Updated DateTime 03/09/2022 165.1 cm 29.1 kg/m2 08176.66 475 g 115 mm[Hg] 81 mm[Hg] [facility] 2 10:45:55 Date Recorded Body height Body mass index (BMI) Body weight Systolic blood pressure Diastolic blood pressure Provider Name and Address Organization Details Last Updated DateTime 03/16/2022 165.1 cm 29.6 kg/m2 07325.44 186 g 118 mm[Hg] 81 mm[Hg] [facility] 2 10:51:36 Date Recorded Body height Body mass index (BMI) Systolic blood pressure Diastolic blood pressure Provider Name and Address Organization Details Last Updated DateTime 04/17/2022 165.1 cm 26.6 kg/m2 114 mm[Hg] 76 mm[Hg] Brittani Henriquez [facility] 04/17/2022 17:19:06 Date Recorded Body weight Provider Name an d Address Organization Details Last Updated DateTime 04/17/2022 79245.7792 g Violette Clark [facility] 06/28/2022 15:01:03 Date Recorded Body height Body mass index (BMI) Body weight Systolic blood pressure Diastolic blood pressure Provider Name and Address Organization Details Last Updated DateTime 07/18/2022 165.1 cm 25.5 kg/m2 99017.63 g 112 mm[Hg] 80 mm[Hg] Stephie Dean [facility] 3 10:27:34 Date Recorded Body height Body mass index (BMI) Body weight Systolic blood pressure Diastolic blood pressure Provider Name and Address Organization Details Last Updated DateTime 04/20/2024 165.1 cm 27.3 kg/m2 29640.15 g 116 mm[Hg] 80 mm[Hg] Batool Barboza [facility] 4 16:37:17 Social History Question Answer Notes LastModified by Organizat ion Details LastModified Time Tobacco Smoking Status Never Smoker Brittani rodriguez, [facility] 04/17/2022 17:19:43 What Is Your Level Of Alcohol Consumption? None [email or web address] Information not available 04/17/2022 Are You Blind Or Do You Have Difficulty Seeing? No [email or web address] Information n ot available 04/17/2022 How Much Tobacco Do You Chew? None [email or web address] Information not available 04/17/2022 In The 14 Days Before Symptom Onset, Have You Had Close Contact With A Laboratory-confirm ed COVID-19 While That Case Was Ill? No [email or web address] Information n ot available 04/17/2022 In The 14 Days Before Symptom Onset, Have You Had Close Contact With A Person Who Is Under Investigation For COVID-19 While That Person Was Ill? No [email or web address] Information not available 04/17/2022 Have You Been To An Area Known To Be High Risk For COVID-19? No [email or web address] Information not available 04/17/2022 Are You Deaf Or Do You Have Serious Difficulty Hearing? No [email or web address] Information not available 04/17/2022 What Is The Highest Grade Or Level Of School You Have Completed Or The Highest Degree You Have Received? RD90589-1 [email or web address] Information not available 04/17/2022 What Is Your Occupation? Felicia Chery Information not available 04/17/2022 Are There Any Guns Present In Your Home? Yes [email or web address] Information not available 04/17/2022 Do You Use Your Seat Belt Or Car Seat Routinely? Yes [email or web address] Information not available 04/17/2022 Do You Have Smoke And Carbon Monoxide Detectors In Your Home? Yes [email or web address] Information not available 04/17/2022 How Much Tobacco Do You Smoke? No [email or web address] Information not available 04/17/2022 Do You Feel Stressed (tense, Restless, Nervous, Or Anxious, Or Unable To Sleep At Night)? MR25181-6 [email or web address] Information not available 04/17/2022 Do You Use Any Illicit Or Recreational Drugs? No [email or web address] Information not available 11/17/2021 Do You Use Sunscreen Routinely? Yes Information not available 04/17/2022 Has Tobacco Cessation Counseling Been Provided? No [email or web address] Information not available 04/17/2022 Have You Used IV Drugs? No [email or web address] Information not available 04/17/2022 Do You Or Have You Ever Used Any Other Forms Of Tobacco Or Nicotine? No [email or web address] Information not available 04/17/2022 Sex: Unknown Functional Status Question Answer Note LastModified by Organizat ion Details LastModified Time Do you have difficulty walking or climbing stairs? No [email or web address] Information not available 04/17/2022 Are you able to walk? YESWOREST [email or web address] Information not available 04/17/2022 Are you able to care for yourself? Yes [email or web address] Information not available 04/17/2022 Do you have difficulty dressing or bathing? No [email or web address] Information not available 04/17/2022 Mental Status None [...] (Food, seasonal, environmental ) N Other N Breast Cancer N Drug/Latex Allergies/Reactions N Blood Transfusion N Dermatologic Disorders N Lung Disease N Defects or Inherited Disease N Breast Problem N Gestational Diabetes N Hematologic disorders N Anesthesia Complications N History of STI N Deep Vein Thrombosis N Polycystic ovary syndrome N Anxiety Disorder N Autoimmune disease N Arthritis N Infertility N Polyps N Acid Reflux (GERD) N History of abnormal pap N Cancer N Stroke N Varicosities N Neurologic/Epilepsy N Endometriosis N High Cholesterol N Headaches N Fibromyalgia N Kidney Disease N Heart Problems N Kidney or Bladder Problems N Thyroid Problems N GI Problems N Eating Disorder [...] SNOMED-CT Code Diagnosis ICD10 Code Diagnosis Note [id number] Ana Dennis MD [place] [address] [address] 11/17/2021 10:46:42 11/17/2021 11:47:53 Routine care 758737332 Z34.91 Advanced m aternal age 965039561 O09.522 Late entry into care 288042343 O09.32 [id number] Silvana [facility] [address] [address] 11/21/2021 11:42:05 11/21/2021 13:10:22 screening for malformation 251473098 Z36.3 [id number] Ana Dennis MD [place] [address] [address] 12/11/2021 11:30:46 12/11/2021 13:03:54 Routine care 099045236 Z34.91 [id number] Ana Dennis MD [place] [address] [address] 01/01/2022 10:38:27 01/01/2022 11:05:34 Routine care 465337948 Z34.91 [id number] Ana Dennis MD [place] [address] [address] 01/15/2022 10:40:08 01/15/2022 10:57:52 Advanced maternal age 537381109 O09.522 Late entry into care 056309154 O09.32 [id number] Silvana Buchanan [place] [address] [address] 02/01/2022 12:25:14 02/01/2022 14:25:56 COVID-19 909190135 U07.1 [id number] Ana Dennis MD [place] [address] [address] 02/02/2022 12:41:56 02/02/2022 13:16:09 Advanced maternal age 005835855 O09.522 [id number] Ana Dennis MD [place] [address] [address] 02/16/2022 11:27:19 02/16/2022 14:34:39 Advanced maternal age 226939634 O09.522 Late entry into care 555898003 O09.32 [id number] Ana Dennis MD [place] [address] [address] 03/02/2022 11:08:32 03/02/2022 12:10:34 Advanced maternal age 172692283 O09.522 Routine an tenatal care 590848037 Z34.91 [id number] Anjali Livingston [place] [address] [address] 03/02/2022 11:09:04 03/02/2022 11:49:35 Pre-existing maternal disease complicating 1032723341 6106 O99.891 U07.1 O09.523 O09.33 Z3A.36 [id number] Ana Dennis MD [place] [address] [address] 03/09/2022 10:30:29 03/09/2022 11:18:08 Routine care 144170572 Z34.91 [id number] Ana Dennis MD [place] [address] [address] 03/16/2022 10:40:35 03/20/2022 15:20:16 Advanced maternal age 007767595 O09.522 Late entry into care 100449263 O09.32 [id number] Ana Dennis MD [place] [address] [address] 04/17/2022 17:00:48 04/18/2022 13:11:57 care 461025836 Z39.2 depression 58 133803 F53.0 Initial pr escription of oral contraception 709870529 Z30.011 [id number] Ana Dennis MD [place] [address] [address] 07/18/2022 10:15:21 07/18/2022 11:08:36 Chronic lichen planus 051063346 L43.8 Gynecologi c examination 47698521 Z01.419 [id number] GIULIA LINDSEY MD [place] [address] [address] 04/20/2024 16:29:45 04/20/2024 17:07:52 Gynecologic examination 80421517 Z01.419 Well woman care- Cervical cancer screening: [...] ID Guarantor Name 03/09/2022 1 [place] [id number] Trae Harden [id number] 001 Harpreet Harden 03/16/2022 1 [place] [id number] Trae Harden [id number] 001 Harpreet Harden 04/17/2022 1 [place] [id number] Trae Harden [id number] 001 Harpreet Harden 07/18/2022 1 *SELF PAY* Clover Harden 04/20/2024 1 [place] Harpreet Harden [id number] Harpreet Harden Notes Date Note Type Note [...] 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 Badger score 4. Started celexa 10 days ago and feeling better already, coping better. Period-no Annual due: now, pap last 2018 Concerns: none Ana Dennis MD [address], [place], [address], [facility] 04/18/2022 07:59:17 07/18/2022 text/html Patient is a 36y o who presents for an annual exam. Yvon. Stopped celexa 3w ago, mood fine. Lichen planus flaring, thinks from POP. Previously flared from OCPs, did do ok on . Recently lost her insurance, trying to get state aid. last pap-2019, had abnormal 2012 sexually active-y contraception-pop seatbelts-y exercise-y depression-denies domestic violence-denies tobacco-n concerns- Ana Dennis MD [address], [place], [address], [facility] 07/18/2022 11:06:01 04/20/2024 text/html Presents today [...] Junel. GIULIA LINDSEY MD [address], [place], [address], [place] [facility] 04/20/2024 17:07:05 OBGyn Episode Ob Episode Information Episode Created Date Number of Fetuses Patient Bloodtype Patient rh Status Prepregnancy Weight lbs Domestic Partner Domestic Partner Phone Father Name Generator Operator Status 11/18/19 22 1 B Positive CLOSED Fetus Data First Name Last Name Admitted to NICU Weight (g) Sex Living Outcome Pediatric Complications Fetus ID Race Codes Race Delivery Type Yvon 3316.89 15 M true Full Term [address]39 Vaginal Delivery Problems Problem Notes Dennis ptDeclines COVID vacc johnathan Problem Name Start Date End Date Resolution Snomed Code Not e Late entry into care 720811982 21w6d, did not find out until 19w, poor dating Advanced maternal age 993569009 aware of risks, declines nipt exposure to alcohol 995098155 SARS-CoV-2 01/21/2022 720026566 ASA & Se rial growth Abigail Calculation [...] Date Ultra Sound Latest Days Gestation 0 [email or web address] 01/01/2022 03/24/20 22 0 Pre- Flowsheet Flowsheet Date 11/17/2021 Sher Score Blood Edema Fundus Height Fundus Units Glucose Ketones Leukocytes Nitrite Labor Signs Protein Cervic Dilation Cervic Effacement Cervic Station neg none none trace Type Weight in lbs Pre/Post Dialysis Refused Weight 162.104337298764 BP Diastolic BP Location Tested BP Systolic [...] Weight in lbs Pre/Post Dialysis Refused Weight 167.109476078733 BP Diastolic BP Location Tested BP Systolic [...] Weight in lbs Pre/Post Dialysis Refused Weight 173.842327918081 BP Diastolic BP Location Tested BP Systolic [...] Weight in lbs Pre/Post Dialysis Refused Weight 174.79840411502 BP Diastolic BP Location Tested BP Systolic [...] Weight in lbs Pre/Post Dialysis Refused Weight 173.044227383451 BP Diastolic BP Location Tested BP Systolic [...] Weight in lbs Pre/Post Dialysis Refused Weight 175.831200142771 BP Diastolic BP Location Tested BP Systolic [...] Weight in lbs Pre/Post Dialysis Refused Weight 173.747752585038 BP Diastolic BP Location Tested BP Systolic [...] Weight in lbs Pre/Post Dialysis Refused Weight 175.540758288324 BP Diastolic BP Location Tested BP Systolic [...] Weight in lbs Pre/Post Dialysis Refused Weight 178.052946160229 BP Diastolic BP Location Tested BP Systolic BP Type 81 118 Fetus Heart Rate Present A 140 Fetus Movement A Yes Comments DOing fine. IOL tomorrow. GB S neg. Precautions given. Flowsheet Date 04/17/2022 Sher Score Blood Edema Fundus Height Fundus Units Glucose Ketones Leukocytes Nitrite Labor Signs Protein Cervic Dilation Cervic Effacement Cervic Station Type Weight in lbs Pre/Post Dialysis Refused Weight 160.018152229093 BP Diastolic BP Location Tested BP Systolic [...] At Estimated Date of Delivery true Thalassemia (Iranian, Central African, Mediterranean, Or Background): MCV < 80 false Neural Tube Defect (Meningom yelocele, Spina Bifida, Or Anencephaly) false Congenital Heart Defect false Down Syndrome false Kam-Sachs (eg, Mosque, Cajun, St Lucian-Kazakh) f alse Arabella Disease false Sickle Cell Disease Or Trait () false Hemophilia Or Other Blood Disorders false Muscular Dystrophy false Cystic Fibrosis false [place]'s Chorea false Intellectual Disability/Autism false If Yes, [...] Domestic Partner Domestic Partner Phone Father Name Generator Operator Status 11/18/19 1 CLOSED Fetus Data First Name Last Name Admitted to NICU Weight (g) Sex Living Outcome Pediatric Complications Fetus ID Race Codes Race Delivery Type 3259.96 5704 M Full Term 74474 Vaginal Delivery Abigail Calculation Initial Abigail Date [...] Domestic Partner Domestic Partner Phone Father Name Generator Operator Status 11/18/19 22 1 CLOSED Fetus Data First Name Last Name Admitted to NICU Weight (g) Sex Living Outcome Pediatric Complications Fetus ID Race Codes Race Delivery Type 3401.94 M Full Term 62291 Vaginal Delivery Abigail Calculation Initial Abigail Date [...] Domestic Partner Domestic Partner Phone Father Name Generator Operator Status 11/18/19 22 1 CLOSED Fetus Data First Name Last Name Admitted to NICU Weight (g) Sex Living Outcome Pediatric Complications Fetus ID Race Codes Race Delivery Type , Spontane ous 94359 Abigail Calculation Initial Abigail Date Initial Exam [...] Domestic Partner Domestic Partner Phone Father Name Generator Operator Status 11/18/19 22 1 CLOSED Fetus Data First Name Last Name Admitted to NICU Weight (g) Sex Living Outcome Pediatric Complications Fetus ID Race Codes Race Delivery Type , Spontane ous 65602 Abigail Calculation Initial Abigail Date Initial Exam [...]
--- OUTSIDE RECORDS SUMMARY | 2024-09-21 12:27 | XMS_ITS | Continuity of Care Document ---
Author Organization [facility] Address [address] [place] [address] Phone Care Team Providers Care Bankruptcy Paralegal Name Role Phone Kat Young Unavailable Unavailable Advance Directives Directive Yes / No Effective Date File Name No Information Encounters Encounter Description Practice Location Reason(s) For Visit Diagnoses Date Provider Providers Copied on Encounter [facility], [address], [place], [place], [address], [place] tel:[phone] No Information 0 2-200 1 Hannah Stephens. [address] , [address], [place], [address], [place]. tel:[phone] Family History Family Member Type Diagnosis Age At Onset No Information Payers Payer name Insurance type Covered alliance party ID Authoriza tion(s) Medicaid [facility] [id number] Social History Type Description Quantity Date Captured [...]
--- OUTSIDE RECORDS SUMMARY | 2024-09-21 12:27 | XMS_ITS | CONTINUITY OF CARE DOCUMENT ---
Author Name genia cormier Address Unknown Organization [facility] Address [address] [place] [address] [address] [place] [address] Phone [phone] Care Team Providers Care Bunghole Borer Name Role Phone genia cormier Unavailable Unavailable
== END 2024-09-21 11:45 | disposition home or self-care (01) ==
PROVIDERS: Emergency Provider Nurse Practitioner
DX: J40 Bronchitis, not specified as acute or chronic (principal); F17.290 Nicotine dependence, other tobacco product, uncomplicated; Z86.16 Personal history of COVID-19
CPT/HCPCS: 94640; 99213; G0463